=== PATIENT | female | born 1960 | race African-American/Black ===

== ENCOUNTER 2020-12-15 14:01 | Outpatient (REF) | payer OTHER, SELFPAY ==
--- NOTE | ~2020-12-15 | MM_ITS ---
EXAMINATION: MM SCREENING DIGITAL BREAST TOMOSYNTHESIS, BILATERAL CLINICAL INFORMATION: Screening. Asymptomatic. The lifetime risk of breast cancer based on the Tyrer-Cuzick Model is 9.8%. COMPARISON: Mammography: 09/20/2019 and studies dating back to 03/22/2016. TECHNIQUE: Digital breast tomosynthesis is performed in both the craniocaudal and mediolateral oblique views along with computer-aided detection (CAD). Synthesized 2D images are generated from the tomosynthesis. FINDINGS: There are scattered areas of fibroglandular density (ACR BI-RADS breast composition Category b). There is multiplicity and bilaterality of calcifications which have been increasing over time but which are similar in appearance without 1 more specific suspicious grouping being seen. There is increased size and prominence of circumscribed densities about the retroareolar region of the left breast, likely representing dilated ducts. Recommend targeted left breast ultrasound for further evaluation. MM/MM tomosynthesis screening BI IMPRESSION: Increase in circumscribed densities retroareolar region of the left breast for which ultrasound is recommended. ASSESSMENT: BI-RADS 0: Incomplete - Need Additional Imaging Evaluation RECOMMENDATION: Targeted ultrasound retroareolar region of the left breast. Radiology staff will contact patient to obtain this study.
== END 2020-12-15 14:02 | disposition home or self-care (01) ==
LOC: HO.MAMMO 14:01
PROVIDERS: Visit Provider Internal Medicine
DX: Z12.31 Encounter for screening mammogram for malignant neoplasm of breast (principal)
CPT/HCPCS: 77063; 77067

== ENCOUNTER 2020-12-18 13:20 | Outpatient (REF) | payer OTHER, SELFPAY ==
--- NOTE | ~2020-12-18 | US_ITS ---
EXAMINATION: US DIAGNOSTIC ULTRASOUND BREAST, LEFT CLINICAL INFORMATION: Recall from screening for retroareolar duct ectasia. COMPARISON: Mammography 12/15/2020, 09/20/2019, 09/17/2018, 03/22/2016. TECHNIQUE: Ultrasound left breast is targeted to the retroareolar and periareolar region. Grayscale imaging and color Doppler are performed without and with harmonics. FINDINGS: As noted on mammography, there is retroareolar duct ectasia perhaps slightly more prominent on current imaging but present on prior mammography 2019 and 2018. The retroareolar ducts range in size from 3 mm to 6 mm in diameter. The frye are uniform thin. Most all of the ducts are anechoic. There is no solid mass or peripheral or internal color flow. There are 2 ducts retroareolar 3:00 position each around 3 mm in diameter with some hyperechoic intraluminal echogenicity without color flow, likely inspissated secretions. No skin thickening or edema tracking in soft tissue planes. Results are discussed with the patient at time of visit. Patient notes no nipple discharge or palpable mass or other symptom. US/US breast LT limited IMPRESSION: Left retroareolar duct ectasia, 2 smaller ducts retroareolar 3:00 showing probable inspissated secretions in the lumen. No associated color flow. ASSESSMENT: BI-RADS 3: Probably Benign RECOMMENDATION: Diagnostic left mammography and targeted left breast ultrasound in 6 months. This patient's information was entered into a reminder system with a target due date for their next mammogram.
== END 2020-12-18 13:21 | disposition home or self-care (01) ==
LOC: HO.MAMMO 13:20
PROVIDERS: PCP Internal Medicine; Visit Provider Internal Medicine
DX: R92.2 Inconclusive mammogram (principal)
CPT/HCPCS: 76642

== ENCOUNTER 2021-03-31 11:45 | Outpatient (REF) | payer OTHER, SELFPAY ==
[2021-03-31 13:39] LABS: MANUAL DIFF FLAG NO
[2021-03-31 13:42] LABS: Basophils Percent Auto 0.1 % (0-2); Eosinophils Percent Auto 0.5 % (0-4); Hematocrit 43.8 % (37-47); Hemoglobin 13.4 g/dl (12.0-16.0); Imm Gran Abs Auto 0.03 X10*3/uL (0.00-0.03); Imm Gran Pct Auto 0.4 % (0.0-0.4); Lymphocytes Absolute Auto 3.2 X10*3/uL (1.2-4.9); Lymphocytes Percent Auto 39.2 % (20-40); Mean Corpuscular HGB Conc 30.6 g/dl (31.0-35.0); Mean Corpuscular Volume 81.7 fL (80-98); Mean Platelet Volume 10.1 fL (9.4-12.3); Monocytes Absolute Auto 0.6 X10*3/uL (0.1-1.2); Monocytes Percent Auto 7.3 % (2-11); Neutrophils Absolute Auto 4.3 X10*3/uL (2.0-8.3); Neutrophils Percent Auto 52.5 % (45-73); Platelet Count 290 X10*3/uL (160-400); Red Blood Count 5.36 X10*6/uL (4.20-5.50); Red Cell Distribution Width 13.4 % (11.0-16.0); White Blood Count 8.2 X10*3/uL (4.8-10.8)
[2021-03-31 14:22] LABS: Alanine Aminotransferase 24 U/L (0-31); Albumin Level 4.2 g/dL (3.5-5.0); Alkaline Phosphatase 88 U/L (39-117); Anion Gap 15 (12-20); Aspartate Amino Transferase 19 U/L (5-31); Bilirubin Direct 0.4 mg/dL (0.0-0.5); Bilirubin Total 0.9 mg/dL (0.0-1.0); Blood Urea Nitrogen 14 mg/dL (9-16); Calcium 9.6 mg/dL (8.4-10.2); Carbon Dioxide 25 mmol/L (22-29); Chloride 104 mmol/L (96-108); Cholesterol 161 mg/dL; Estimated Glomerular Filt Rate > 60; Glucose Fasting 148 mg/dL (60-99); HDL Cholesterol 54 mg/dL; LDL Cholesterol Calculated 86 mg/dl; Sodium 140 mmol/L (135-145); Total Protein 7.6 g/dL (6.5-8.0); Triglycerides 108 mg/dL
[2021-03-31 14:42] LABS: TSH reflex Free T4 1.12 uIU/mL (0.32-4.0)
[2021-04-01 13:52] LABS: LDL Cholesterol Direct 99 mg/dL (<100)
== END 2021-03-31 11:46 | disposition home or self-care (01) ==
LOC: HO.HMGCLDS 11:45
PROVIDERS: PCP Internal Medicine; Visit Provider Internal Medicine
DX: E66.01 Morbid (severe) obesity due to excess calories (principal); K21.9 Gastro-esophageal reflux disease without esophagitis; M76.62 Achilles tendinitis, left leg; I10 Essential (primary) hypertension
CPT/HCPCS: 36415; 80048; 80053; 80061; 80076; 82248; 83721; 84443; 85025

== ENCOUNTER 2021-04-26 11:35 | Emergency (ER) | payer OTHER, SELFPAY ==
--- NOTE | ~2021-04-26 | XR_ITS ---
EXAMINATION: XR CHEST CLINICAL INFORMATION: Dyspnea COMPARISON: 09/05/2018 TECHNIQUE: AP upright view of the chest was obtained. FINDINGS: No significant abnormality is noted involving the heart, lungs, mediastinum, bony thorax or soft tissues. XR/XR chest 1V IMPRESSION: Unremarkable examination.
[2021-04-26 12:03] VITALS: BP 158/77; PULSE 66; RESP 16; TEMP 37.2; O2SAT 99; BMI 42.9
--- NOTE | 2021-04-26 13:08 | ED.GENADULT ---
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) Mode of arrival: ambulatory Limitations: no limitations History of Present Illness MD complaint: headaches, dizziness, chest pain abdominal pain Onset (ago): week(s) (1) Location: head, chest and abdomen Severity: moderate Quality: aching Pain Consistency: constant Relieving factors: none Exacerbating factors: medication (started when she started to take her nifedipine) Associated symptoms: chest pain, headaches, loss of appetite, malaise and other (body aches) Treatments prior to arrival: none Related Data Previous Rx's Medication Instructions Recorded Blood pressure monitor #1 ea 09/30/20 acetaminophen 500 mg tablet 500 mg PO BID PRN 90 Days #180 tab 03/12/21 aspirin 81 mg chewable tablet 1 tab PO DAILY 90 Days #90 tab 03/12/21 naproxen 500 mg tablet 500 mg PO ONCE PRN 90 Days #90 tab 03/12/21 atenolol 100 mg tablet 100 mg PO DAILY 90 Days #90 tab 03/31/21 nifedipine 30 mg tablet,extended 30 mg PO DAILY 90 Days #90 tab 03/31/21 release 24 hr (Procardia XL) omeprazole 40 mg capsule,delayed 40 mg PO DAILY 90 Days #90 cap 03/31/21 release cefuroxime axetil 500 mg tablet 500 mg PO BID 7 Days #14 tab 04/26/21 ondansetron 4 mg disintegrating 4 mg PO Q8H PRN #20 tab 04/26/21 tablet Allergies Allergy/AdvReac Type Severity Reaction Status Date / Time lisinopril AdvReac Unknown cough Verified 03/31/21 11:25 Review of Systems Review of Systems: Constitutional : No Weight loss, No Fever, No Chills ENT/Mouth : No sore throat, No Rhinorrhea Eyes: No Eye Pain, No Swelling Cardiovascular : pos Chest Pain, no SOB, no Dyspnea on Exertion, No Orthopnea, No Edema, No Palpitations Respiratory : No Cough, No Sputum Gastrointestinal : pos Nausea, No Vomiting, No Diarrhea, pos abdominal Pain, No Hematochezia, No Melena Genitourinary : No Dysuria, No Urinary Frequency Musculoskeletal : No joint pain, pos Myalgias, No Joint Swelling Skin : No Skin Lesions, No rash Neuro : pos Weakness, No Numbness, pos Dizziness, No Headache Psych : No Anxiety/Panic, No Depression Heme/Lymph: No Bruising, No Lymphadenopathy Endocrine : No Polyuria, No Polydipsia All other systems reviewed and are negative [facility] Past Medical History Attestation statement: The following information was validated with the patient. Medical History Chronic GERD Uncontrolled hypertension Social History Social History Alcohol intake: current Alcohol intake frequency: holidays/special occasions only Patient Tobacco Use Status: Never used Tobacco Advance Directives: No Current occupational status: employed Physical Exam Vital Signs: Vital Signs: Last Vital Signs Temp 99.0 F 04/26/21 12:03 Pulse 66 04/26/21 12:03 Resp 16 04/26/21 12:03 BP 158/77 H 04/26/21 12:03 Pulse Ox 99 04/26/21 12:03 Body Mass Index 42.9 Appearance: Alert. Oriented X3. No acute distress. Eyes: Pupils equal, round and reactive to light. ENT: Pharynx normal. Neck: Normal inspection. Neck supple. CVS: Normal heart rate and rhythm. Pulses normal. Respiratory: No respiratory distress. Breath sounds normal. Abdomen: Soft and mild epigastric ttp no reboung or guarding Skin: Skin warm and dry. Normal skin color. Normal skin turgor. Extremities: No lower extremity edema. No calf ttp Neuro: Oriented X 3. No motor deficit. No sensory deficit. Course Course Course Narrative: + UTI but no vomiting, not toxic, no CVA ttp can be managed as outpatient BP stable, EKG and trop negative feels better stable for DC Medical Decision Making MDM Narrative Medical decision making narrative: 61 yo female with hx of obesity and HTN here with diffuse body pain, headaches, dizziness, weakness, chest pain x 1 week after starting nifedipine - at this time will need labs, EKG< troponin x 1, her VS are stable she doesn't have significant ttp of abdomen - will provide supportive medications and reassess Lab Data Result diagrams: 04/26/21 13:54 04/26/21 13:54 Labs: Lab Results 09/06/21 09/06/21 09/06/21 Range/Units 13:54 13:54 13:54 WBC 13.8 H (4.8-10.8) X10*3/uL RBC 5.27 (4.20-5.50) X10*6/uL Hgb 13.3 (12.0-16.0) g/dl Hct 43.1 (37-47) % MCV 81.8 (80-98) fL MCH 25.2 L (27.0-33.0) pg MCHC 30.9 L (31.0-35.0) g/dl RDW 13.1 (11.0-16.0) % Plt Count 323 (160-400) X10*3/uL MPV 8.9 L (9.4-12.3) fL Immature Gran % (Auto) 0.3 (0.0-0.4) % Neut % (Auto) 66.3 (45-73) % Lymph % (Auto) 27.7 (20-40) % Hart % (Auto) 5.4 (2-11) % Eos % (Auto) 0.2 (0-4) % Baso % (Auto) 0.1 (0-2) % Lymph # (Auto) 3.8 (1.2-4.9) X10*3/uL Hart # (Auto) 0.8 (0.1-1.2) X10*3/uL Eos # (Auto) 0.0 (0.0-0.4) X10*3/uL Baso # (Auto) 0.0 (0.0-0.2) X10*3/uL Abs Immat Gran (auto) 0.04 H (0.00-0.03) X10*3/uL Absolute Neuts (auto) 9.1 H (2.0-8.3) X10*3/uL Absolute Nucleated RBC 0.000 (0.0-0.012) X10*3/uL Nucleated RBC % (auto) 0.0 (0.0-0.2) /100WBC Sodium 140 (135-145) mmol/L Potassium 3.8 (3.3-5.1) mmol/L Chloride 100 (96-108) mmol/L Carbon Dioxide 31 H (22-29) mmol/L Anion Gap 13 (12-20) BUN 10 (9-16) mg/dL Creatinine 0.74 (0.5-1.4) mg/dL Estim Creat Clear Calc 98.5 Estimated GFR > 60 Random Glucose 106 (60-115) mg/dL Calcium 9.4 (8.4-10.2) mg/dL Magnesium (1.6-2.6) mg/dL Total Bilirubin 0.7 (0.0-1.0) mg/dL Direct Bilirubin 0.3 (0.0-0.5) mg/dL AST 26 (5-31) U/L ALT 34 H (0-31) U/L Alkaline Phosphatase 99 (39-117) U/L Troponin I High Sens (<3.5-17.0) ng/L Total Protein 7.6 (6.5-8.0) g/dL Albumin 4.1 (3.5-5.0) g/dL Lipase 12 (8-78) U/L Urine Color Urine Appearance Urine pH (5.0-8.0) Ur Specific [place] (1.005-1.025) Urine Protein (NEG-TRACE) MG/DL Urine Glucose (UA) (NEG) MG/DL Urine Ketones (NEG) MG/DL Urine Blood (NEG) Urine Nitrite (NEG) Ur Leukocyte Esterase (NEG) Urine RBC (0) /HPF Urine WBC (0-4) /HPF Ur Squamous Epith Cells /LPF Urine Bacteria /LPF COVID-19 (KELLY) Negative (Negative) COVID-19 Clin Com See Note 04/26/21 04/26/21 04/26/21 Range/Units 13:54 13:54 14:20 WBC (4.8-10.8) X10*3/uL RBC (4.20-5.50) X10*6/uL Hgb (12.0-16.0) g/dl Hct (37-47) % MCV (80-98) fL MCH (27.0-33.0) pg MCHC (31.0-35.0) g/dl RDW (11.0-16.0) % Plt Count (160-400) X10*3/uL MPV (9.4-12.3) fL Immature Gran % (Auto) (0.0-0.4) % Neut % (Auto) (45-73) % Lymph % (Auto) (20-40) % Hart % (Auto) (2-11) % Eos % (Auto) (0-4) % Baso % (Auto) (0-2) % Lymph # (Auto) (1.2-4.9) X10*3/uL Hart # (Auto) (0.1-1.2) X10*3/uL Eos # (Auto) (0.0-0.4) X10*3/uL Baso # (Auto) (0.0-0.2) X10*3/uL Abs Immat Gran (auto) (0.00-0.03) X10*3/uL Absolute Neuts (auto) (2.0-8.3) X10*3/uL Absolute Nucleated RBC (0.0-0.012) X10*3/uL Nucleated RBC % (auto) (0.0-0.2) /100WBC Sodium (135-145) mmol/L Potassium (3.3-5.1) mmol/L Chloride (96-108) mmol/L Carbon Dioxide (22-29) mmol/L Anion Gap (12-20) BUN (9-16) mg/dL Creatinine (0.5-1.4) mg/dL Estim Creat Clear Calc Estimated GFR Random Glucose (60-115) mg/dL Calcium (8.4-10.2) mg/dL Magnesium 2.0 (1.6-2.6) mg/dL Total Bilirubin (0.0-1.0) mg/dL Direct Bilirubin (0.0-0.5) mg/dL AST (5-31) U/L ALT (0-31) U/L Alkaline Phosphatase (39-117) U/L Troponin I High Sens < 3.5 (<3.5-17.0) ng/L Total Protein (6.5-8.0) g/dL Albumin (3.5-5.0) g/dL Lipase (8-78) U/L Urine Color YELLOW Urine Appearance CLEAR Urine pH 7.0 (5.0-8.0) Ur Specific [place] <= 1.005 (1.005-1.025) Urine Protein NEG (NEG-TRACE) MG/DL Urine Glucose (UA) NEG (NEG) MG/DL Urine Ketones NEG (NEG) MG/DL Urine Blood NEG (NEG) Urine Nitrite POS H (NEG) Ur Leukocyte Esterase 1+ H (NEG) Urine RBC 0-2 (0) /HPF Urine WBC 5-9 H (0-4) /HPF Ur Squamous Epith Cells 1+ /LPF Urine Bacteria 3+ /LPF COVID-19 (KELLY) (Negative) COVID-19 Clin Com ECG Data Attestation: I personally reviewed and interpreted this ECG as follows: Interpretation: Rate: 57 Rhythm: sinus bradycardia [place]: normal Normal P waves. Normal LIZ. Normal QRS complex. ST T wave : normal no YAZMIN qTC: normal prior studies: no acute ischemia The study has been interpreted contemporaneously by me. . Discharge Plan Discharge Clinical Impression: Malaise, Atypical chest pain UTI (urinary tract infection) Qualifiers: Urinary tract infection type: acute cystitis Hematuria presence: without hematuria Qualified Code(s): N30.00 - Acute cystitis without hematuria Patient Disposition: Home, Self-Care Instructions: Chest Pain (ED), Urinary Tract Infection in Women (ED), Fatigue (ED) Additional Instructions: return to ED for any worsening symptoms or concerns NEGATIVE FOR COVID Prescriptions: New cefuroxime axetil 500 mg tablet 500 mg PO BID 7 Days Qty: 14 RF: 0 ondansetron 4 mg tablet,disintegrating 4 mg PO Q8H PRN (Reason: nausea and vomiting) Qty: 20 RF: 0 No Action (DME) Blood pressure monitor See Rx Instructions .Route .MEDSUPPLY Qty: 1 RF: 0 acetaminophen 500 mg tablet 500 mg PO BID PRN (Reason: pain) 90 Days Qty: 180 RF: 0 aspirin 81 mg tablet,chewable 1 tab PO DAILY 90 Days Qty: 90 RF: 0 naproxen 500 mg tablet 500 mg PO ONCE PRN (Reason: pain) 90 Days Qty: 90 RF: 0 nifedipine [Procardia XL] 30 mg tablet extended release 24hr 30 mg PO DAILY 90 Days Qty: 90 RF: 0 atenolol 100 mg tablet 100 mg PO DAILY 90 Days Qty: 90 RF: 0 omeprazole 40 mg capsule,delayed release(DR/EC) 40 mg PO DAILY 90 Days Qty: 90 RF: 0 Referrals: Delvis Green MD [Primary Care Provider] - 2 days (IF NOT BETTER) Print Language: Emirati
--- NOTE | 2021-04-26 13:15 | ECG_ITS ---
Test Reason : DIZZINESS Blood Pressure : / mmHG Vent. Rate : 057 BPM Atrial Rate : 057 BPM P-R Int : 162 ms QRS Dur : 080 ms QT Int : 478 ms P-R-T Axes : 050 042 018 degrees QTc Int : 465 ms Sinus bradycardia Otherwise normal ECG No previous ECGs available Referred By: Suly Camarena Electronically Signed By:MAIA PERERA
[2021-04-26 13:59] LABS: MANUAL DIFF FLAG NO
[2021-04-26 14:01] LABS: Basophils Percent Auto 0.1 % (0-2); Eosinophils Percent Auto 0.2 % (0-4); Hematocrit 43.1 % (37-47); Hemoglobin 13.3 g/dl (12.0-16.0); Imm Gran Abs Auto 0.04 X10*3/uL (0.00-0.03); Imm Gran Pct Auto 0.3 % (0.0-0.4); Lymphocytes Absolute Auto 3.8 X10*3/uL (1.2-4.9); Lymphocytes Percent Auto 27.7 % (20-40); Mean Corpuscular HGB Conc 30.9 g/dl (31.0-35.0); Mean Corpuscular Hemoglobin 25.2 pg (27.0-33.0); Mean Corpuscular Volume 81.8 fL (80-98); Mean Platelet Volume 8.9 fL (9.4-12.3); Monocytes Absolute Auto 0.8 X10*3/uL (0.1-1.2); Monocytes Percent Auto 5.4 % (2-11); Neutrophils Absolute Auto 9.1 X10*3/uL (2.0-8.3); Neutrophils Percent Auto 66.3 % (45-73); Platelet Count 323 X10*3/uL (160-400); Red Blood Count 5.27 X10*6/uL (4.20-5.50); Red Cell Distribution Width 13.1 % (11.0-16.0); White Blood Count 13.8 X10*3/uL (4.8-10.8)
[2021-04-26 14:12] LABS: COVID-19 Test Negative (Negative); IDNOW Serial# 55D5AD1C
[2021-04-26] MEDS: Acetaminophen 325 MG TABLET 650 MG PO (14:12)
[2021-04-26 14:19] LABS: Alanine Aminotransferase 34 U/L (0-31); Albumin Level 4.1 g/dL (3.5-5.0); Alkaline Phosphatase 99 U/L (39-117); Anion Gap 13 (12-20); Aspartate Amino Transferase 26 U/L (5-31); Bilirubin Direct 0.3 mg/dL (0.0-0.5); Bilirubin Total 0.7 mg/dL (0.0-1.0); Blood Urea Nitrogen 10 mg/dL (9-16); Calcium 9.4 mg/dL (8.4-10.2); Carbon Dioxide 31 mmol/L (22-29); Chloride 100 mmol/L (96-108); Creatinine Clr Calc Pharmacy 98.5; Estimated Glomerular Filt Rate > 60; Glucose Random 106 mg/dL (60-115); Lipase 12 U/L (8-78); Potassium 3.8 mmol/L (3.3-5.1); Sodium 140 mmol/L (135-145); Total Protein 7.6 g/dL (6.5-8.0)
[2021-04-26 14:22] LABS: Troponin-I High Sensitivity < 3.5 ng/L (<3.5-17.0)
[2021-04-26 14:27] LABS: Glucose Urine UA NEG (NEG); Leukocyte Esterase Urine 1+ (NEG); Nitrite Urine POS (NEG); Specific Gravity - Urine <= 1.005 (1.005-1.025); UACC Culture Trigger YES; Urine Blood NEG (NEG); Urine Ketones NEG (NEG); Urine Protein NEG (NEG-TRACE)
[2021-04-26 14:28] LABS: Appearance Urine CLEAR; Color Urine YELLOW
[2021-04-26 14:37] LABS: Bacteria Urine 3+ /LPF; RBC Urine 0-2 /HPF (0); Squamous Epithelial Cell Urine 1+ /LPF
[2021-04-26] MEDS: cefTRIAXone sodium 1 GM in 0.9 % Sodium Chloride 50 ML IV (15:28)
== END 2021-04-26 15:55 | disposition home or self-care (01) ==
PROVIDERS: Emergency Provider Emergency Medicine; PCP Internal Medicine
DX: R07.89 Other chest pain (principal); R53.81 Other malaise; N30.00 Acute cystitis without hematuria; Z20.822 Contact with and (suspected) exposure to COVID-19; R51.9 Headache, unspecified; I10 Essential (primary) hypertension
CPT/HCPCS: 36415; 71045; 80048; 80076; 81001; 83690; 83735; 84484; 85025; 87086; 87088; 87186; 87635; 93005; 96365; 96375; 99284; J0696

== ENCOUNTER 2021-06-21 14:28 | Outpatient (REF) | payer OTHER, SELFPAY ==
--- NOTE | ~2021-06-21 | MM_ITS ---
EXAMINATION: MM DIAGNOSTIC DIGITAL BREAST TOMOSYNTHESIS, LEFT US DIAGNOSTIC ULTRASOUND BREAST, LEFT CLINICAL INFORMATION: Six-month follow-up benign appearing duct ectasia with some inspissated secretions on targeted ultrasound. The lifetime risk of breast cancer based on the Tyrer-Cuzick Model is 10%. COMPARISON: Mammography: 12/15/2020, 09/20/2019; targeted left breast ultrasound 12/18/2020 TECHNIQUE: Digital breast tomosynthesis is performed in both the craniocaudal and mediolateral oblique views along with computer-aided detection (CAD). Synthesized 2D images are generated from the tomosynthesis. Additional left CC view is provided. Ultrasound left breast is targeted to the retroareolar and outer periareolar region. Grayscale imaging and color Doppler are performed without and with harmonics. FINDINGS: There are scattered areas of fibroglandular density (ACR BI-RADS breast composition Category b). Retroareolar duct ectasia are stable from prior study. There is no interval mass or architectural abnormality. There are scattered punctate calcifications again seen. No skin thickening or retraction. Ultrasound demonstrates mild retroareolar duct ectasia similar in number and size to prior exam. There are 2 ducts retroareolar 3:00 position which have some stable hyperechoic internal echogenicity without peripheral or internal color flow and are believed to represent inspissated secretions. Duct frye appear smooth. Results are discussed with the patient at time of visit. MM/MM tomosynthesis diagnostic LT IMPRESSION: Left retroareolar duct ectasia similar to prior exam. Inspissated secretions stable. No interval mass or intraluminal color flow. ASSESSMENT: BI-RADS 2: Benign RECOMMENDATION: Annual bilateral mammography. This patient's information was entered into a reminder system with a target due date for their next mammogram.
== END 2021-06-21 14:29 | disposition home or self-care (01) ==
LOC: HO.MAMMO 14:28
PROVIDERS: Visit Provider Internal Medicine
DX: R92.2 Inconclusive mammogram (principal)
CPT/HCPCS: 76642; 77061; 77065

== ENCOUNTER → 2021-06-28 14:54 | Outpatient (BNVA) | payer OTHER, SELFPAY | PROVIDERS: PCP Internal Medicine; Referring Provider Internal Medicine; Visit Provider Internal Medicine Cardiovascular Disease | DX: G47.30 Sleep apnea, unspecified (principal); I10 Essential (primary) hypertension | CPT/HCPCS: 99202 ==

== ENCOUNTER → 2021-08-19 12:51 | Outpatient (REF) | payer OTHER, SELFPAY ==
--- NOTE | 2021-08-19 12:54 | CA_ITS ---
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 - Diastolic function is normal for age. - Normal right ventricular cavity size and systolic function. Findings Procedure Information Contrast agent, definity, is being given per protocol without apparent complications. Left Ventricle Normal left ventricular size and systolic function. There is mildly increased left ventricular wall thickness. There is no evidence of regional wall motion abnormalities. Diastolic function is normal for age. Right Ventricle Normal right ventricular cavity size and systolic function. Atria Both atria are normal in size. Aortic Valve There is a normal trileaflet aortic valve. There is mild calcification of the aortic valve. There is no aortic valve stenosis. There is no aortic valve regurgitation. Mitral Valve Normal mitral valve structure and function. There is no mitral valve regurgitation. There is no mitral valve stenosis. Pulmonic Valve Normal pulmonic valve structure and function. There is trace pulmonic valve regurgitation. Tricuspid Valve Normal tricuspid valve structure and function. There is trace tricuspid valve regurgitation. Normal right atrial pressure. There is no evidence of pulmonary hypertension. Great Vessels All visible segments of the aorta are normal in size. The visualized portions of the pulmonary artery and branches are normal. Venous The inferior vena cava is normal in size and collapses greater than 50% with inspiration. Pericardium/Pleural Normal pericardial structure. There is no evidence of pericardial effusion. Prior Study Comparison No significant change compared to prior study dated: 07/10/2019. Measurements 2D Linear Measurements IVSd: 1.10 0.6-0.9/0.6-1.0 cm LVIDd: 3.38 3.9-5.3/4.2-5.9 cm LVIDd Index: 1.60 2.4-3.2/2.2-3.1 cm/m2 LVIDs: 2.08 2.0-3.6 cm LVPWd: 1.07 0.7-1.1 cm Ao Root: 3.30 2.1-3.5 cm LA Diam: 3.80 2.7-3.8/3.0-4.0 cm LAIDs Index: 1.80 1.5-2.3 cm/m2 LV Mass: 137.63 67-162/88-224 g LV Mass Index: 65.23 43-95/49-115 g/m2 LVOT Diam: 2.00 3.0+(-)1.3 cm 2D Systolic Function EF 4C: 59.70 >55% EF 2C: 61.80 >55% EF BiP: 60.30 >55% Mitral Valve MV Pk E: 0.60 MV PK A: 0.76 MV Decel Time: 253.00 E/A: 0.80 E'Lateral: 8.59 E'Medial: 6.53 E/E' Med: 9.20 E/E' Lat: 7.00 PHT: 74.00 MVA PHT: 2.97 Decel [place]: 2.37 Aortic Valve AoV Pk Francis: 1.55 AoV Mn Francis: 1.22 AoV VTI: 0.34 AoV Pk Grad: 10.00 Aov Mn Grad: 6.00 JERAMIE Cont.VTI: 2.27 LVOT LVOT Pk Francis: 1.20 LVOT Mn Francis: 0.88 LVOT VTI: 0.24 LVOT Pk Grad: 6.00 LVOT Mn Grad: 3.00 LVOT Diam: 2.00 LVOT Area: 3.14 Diastolic Function MV Pk E: 0.60 MV Pk A: 0.76 E/A: 0.80 E'Medial: 6.53 E/E' Med: 9.20 E' Laterial: 8.59 E/E' Lat: 7.00 Right Ventricle TAPSE (mm): 2.21 TVS' Francis: 12.90 Tricuspid Valve TR Pk Francis: 1.95 TR Pk Grad: 15.00 RA Press: 3.00 RVSP: 18.00 Great Vessels Aorta Ao Root-2D: 3.30 2.0-3.7 cm Ao Asc: 3.20 2.1-3.4 cm Ao Arch: 2.80 Updated in Other Vendor System with Status of Final Krish Villa MD electronically signed on 08/20/2021 4:02:15 PM with status of Final
== END ==
LOC: HO.CARD 12:51
PROVIDERS: Visit Provider Internal Medicine Cardiovascular Disease
DX: I10 Essential (primary) hypertension (principal)
CPT/HCPCS: 93306; Q9957

== ENCOUNTER → 2021-10-04 14:43 | Outpatient (BNVA) | payer OTHER, SELFPAY | PROVIDERS: PCP Internal Medicine; Referring Provider Internal Medicine; Visit Provider Internal Medicine Cardiovascular Disease | DX: R06.00 Dyspnea, unspecified (principal); I10 Essential (primary) hypertension | CPT/HCPCS: 93005; 99212 ==

== ENCOUNTER → 2021-10-05 20:56 | Outpatient (REF) | payer OTHER, SELFPAY | LOC: HO.SL 20:56 | PROVIDERS: PCP Internal Medicine; Visit Provider Internal Medicine Cardiovascular Disease | DX: G47.33 Obstructive sleep apnea (adult) (pediatric) (principal) | CPT/HCPCS: 95810 ==

== ENCOUNTER 2021-10-29 10:08 | Outpatient (REF) | payer OTHER, SELFPAY ==
[2021-10-29 10:42] LABS: MANUAL DIFF FLAG NO
[2021-10-29 11:08] LABS: Basophils Percent Auto 0.2 % (0-2); Eosinophils Absolute Auto 0.1 X10*3/uL (0.0-0.4); Eosinophils Percent Auto 0.7 % (0-4); Hematocrit 44.7 % (37.0-47.0); Hemoglobin 13.3 g/dl (12.0-16.0); Imm Gran Abs Auto 0.04 X10*3/uL (0.00-0.03); Imm Gran Pct Auto 0.4 % (0.0-0.4); Lymphocytes Absolute Auto 3.1 X10*3/uL (1.2-4.9); Lymphocytes Percent Auto 34.5 % (20-40); Mean Corpuscular HGB Conc 29.8 g/dl (31.0-35.0); Mean Corpuscular Hemoglobin 24.8 pg (27.0-33.0); Mean Corpuscular Volume 83.2 fL (80.0-98.0); Mean Platelet Volume 9.2 fL (9.4-12.3); Monocytes Absolute Auto 0.8 X10*3/uL (0.1-1.2); Monocytes Percent Auto 8.9 % (2-11); Neutrophils Percent Auto 55.3 % (45-73); Platelet Count 311 X10*3/uL (160-400); Red Blood Count 5.37 X10*6/uL (4.20-5.50); Red Cell Distribution Width 12.9 % (11.0-16.0); White Blood Count 9.1 X10*3/uL (4.8-10.8)
[2021-10-29 11:40] LABS: Anion Gap 13 (12-20); Blood Urea Nitrogen 19 mg/dL (9-16); Calcium 9.8 mg/dL (8.4-10.2); Carbon Dioxide 30 mmol/L (22-29); Chloride 100 mmol/L (96-108); Cholesterol 148 mg/dL; Estimated Glomerular Filt Rate > 60; Glucose Random 140 mg/dL (60-115); HDL Cholesterol 45 mg/dL; LDL Cholesterol Calculated 80 mg/dl; Sodium 139 mmol/L (135-145); Triglycerides 118 mg/dL
== END 2021-10-29 10:09 | disposition home or self-care (01) ==
LOC: HO.LAB 10:08
PROVIDERS: PCP Internal Medicine; Visit Provider Internal Medicine Cardiovascular Disease
DX: I10 Essential (primary) hypertension (principal); D72.829 Elevated white blood cell count, unspecified; E78.5 Hyperlipidemia, unspecified
CPT/HCPCS: 36415; 80048; 80061; 85025

== ENCOUNTER → 2021-11-03 14:12 | Outpatient (BNVA) | payer OTHER, SELFPAY | PROVIDERS: PCP Internal Medicine; Referring Provider Internal Medicine; Visit Provider Nurse Practitioner Family | DX: I10 Essential (primary) hypertension (principal); R06.00 Dyspnea, unspecified; E66.9 Obesity, unspecified; Z68.41 Body mass index [BMI] 40.0-44.9, adult | CPT/HCPCS: 99212 ==

== ENCOUNTER 2021-12-23 15:06 | Outpatient (REF) | payer OTHER, SELFPAY ==
--- NOTE | ~2021-12-23 | MM_ITS ---
EXAMINATION: MM SCREENING DIGITAL BREAST TOMOSYNTHESIS, BILATERAL CLINICAL INFORMATION: Screening. Asymptomatic. The lifetime risk of breast cancer based on the Tyrer-Cuzick Model is 9.2%. COMPARISON: Mammography: 06/21/2021 and studies dating back to 04/19/2012. TECHNIQUE: Digital breast tomosynthesis is performed in both the craniocaudal and mediolateral oblique views along with computer-aided detection (CAD). Synthesized 2D images are generated from the tomosynthesis. FINDINGS: The breasts are heterogeneously dense, which may obscure small masses (ACR BI-RADS breast composition Category c). There is multiplicity and bilaterality of numerous scattered and grouped calcifications which appear essentially stable dating back to study of 09/17/2018. There is also a stable region of architectural distortion seen about the mid lateral aspect of the right breast on craniocaudal view. No definite new suspicious grouping of microcalcifications or new abnormal dominant mass appreciated. MM/MM tomosynthesis screening BI IMPRESSION: There are no significant changes from prior study. ASSESSMENT: BI-RADS 2: Benign RECOMMENDATION: Routine annual mammography screening. This patient's information was entered into a reminder system with a target due date for their next mammogram.
== END 2021-12-23 15:07 | disposition home or self-care (01) ==
LOC: HO.MAMMO 15:06
PROVIDERS: PCP Internal Medicine; Visit Provider Internal Medicine
DX: Z12.31 Encounter for screening mammogram for malignant neoplasm of breast (principal)
CPT/HCPCS: 77063; 77067

== ENCOUNTER → 2022-01-30 20:04 | Outpatient (REF) | payer OTHER, SELFPAY | LOC: HO.SL 20:04 | PROVIDERS: PCP Internal Medicine; Visit Provider Internal Medicine Cardiovascular Disease | DX: G47.33 Obstructive sleep apnea (adult) (pediatric) (principal); Z79.899 Other long term (current) drug therapy | CPT/HCPCS: 95811 ==

== ENCOUNTER 2022-02-11 07:28 | Outpatient (REF) | payer OTHER, SELFPAY ==
[2022-02-11 08:36] LABS: Alanine Aminotransferase 37 U/L (0-31); Albumin Level 4.1 g/dL (3.5-5.0); Alkaline Phosphatase 97 U/L (39-117); Anion Gap 13 (12-20); Aspartate Amino Transferase 24 U/L (5-31); Bilirubin Total 0.9 mg/dL (0.0-1.0); Blood Urea Nitrogen 17 mg/dL (9-16); Calcium 9.6 mg/dL (8.4-10.2); Carbon Dioxide 29 mmol/L (22-29); Chloride 100 mmol/L (96-108); Estimated Glomerular Filt Rate > 60; Glucose Fasting 145 mg/dL (60-99); Potassium 3.5 mmol/L (3.3-5.1); Sodium 138 mmol/L (135-145); Total Protein 7.4 g/dL (6.5-8.0)
[2022-02-11 08:57] LABS: HBc Num1 0.09 S/CO (0.00-0.79); HBsAGNum1 0.23 S/CO (0.00-0.99); Hepatitis B Core Antibody Nonreactive (Nonreactive); Hepatitis B Surface Antigen Negative (Negative); ~Hepatitis B Surface Antibody REACTIVE (Nonreactive)
[2022-02-14 18:06] LABS: Rubella IgG Antibody 3.06 Index
[2022-02-15 13:31] LABS: TS Negative Control Passed; TS Panel A 0; TS Panel B 0; TS Positive Control Passed; TSpotTB Negative (Negative)
[2022-02-15 22:37] LABS: Varicella IgG Antibody <135.00 index
[2022-02-16 13:22] LABS: Mumps Virus IgG Antibody >300.00 AU/mL
== END 2022-02-11 07:29 | disposition home or self-care (01) ==
LOC: HO.LAB 07:28
PROVIDERS: PCP Internal Medicine; Visit Provider Internal Medicine
DX: Z01.84 Encounter for antibody response examination (principal); Z11.1 Encounter for screening for respiratory tuberculosis; I10 Essential (primary) hypertension
CPT/HCPCS: 36415; 80053; 86481; 86704; 86706; 86735; 86762; 86765; 86787; 87340

== ENCOUNTER → 2022-04-07 14:53 | Outpatient (BNVA) | payer OTHER, SELFPAY | PROVIDERS: PCP Internal Medicine; Visit Provider Internal Medicine | DX: E66.9 Obesity, unspecified (principal); G47.33 Obstructive sleep apnea (adult) (pediatric); Z68.39 Body mass index [BMI] 39.0-39.9, adult | CPT/HCPCS: 99202 ==

== ENCOUNTER → 2022-05-31 13:53 | Outpatient (BNVA) | payer OTHER, SELFPAY | PROVIDERS: PCP Internal Medicine; Visit Provider Internal Medicine | DX: G47.33 Obstructive sleep apnea (adult) (pediatric) (principal); E66.9 Obesity, unspecified; R05.9 Cough, unspecified | CPT/HCPCS: 99212 ==

== ENCOUNTER → 2022-06-29 13:48 | Outpatient (BNVA) | payer OTHER, SELFPAY | PROVIDERS: PCP Internal Medicine; Referring Provider Internal Medicine; Visit Provider Nurse Practitioner Family | DX: I10 Essential (primary) hypertension (principal); E66.9 Obesity, unspecified; Z68.39 Body mass index [BMI] 39.0-39.9, adult | CPT/HCPCS: 99212 ==

== ENCOUNTER → 2022-07-13 08:56 | Outpatient (BNVA) | payer OTHER, SELFPAY | PROVIDERS: PCP Internal Medicine; Visit Provider Dietitian, Registered | DX: E66.9 Obesity, unspecified (principal); Z68.39 Body mass index [BMI] 39.0-39.9, adult; Z71.3 Dietary counseling and surveillance | CPT/HCPCS: 97802 ==

== ENCOUNTER → 2022-07-19 13:50 | Outpatient (BNVA) | payer OTHER, SELFPAY | PROVIDERS: PCP Internal Medicine; Visit Provider Internal Medicine | DX: G47.33 Obstructive sleep apnea (adult) (pediatric) (principal); E66.9 Obesity, unspecified; R05.9 Cough, unspecified; Z68.38 Body mass index [BMI] 38.0-38.9, adult | CPT/HCPCS: 99212 ==

== ENCOUNTER 2022-08-10 09:00 | Outpatient (REF) | payer OTHER, SELFPAY ==
--- NOTE | ~2022-08-10 | US_ITS ---
EXAMINATION: US RETROPERITONEAL LIMITED (RENAL ONLY) US RENAL DOPPLER CLINICAL INFORMATION: Hypertension. COMPARISON: None TECHNIQUE: Routine caal-scale imaging of kidneys was performed. In addition, retroperitoneal Doppler of kidneys and aorta was obtained. FINDINGS: RIGHT KIDNEY: 10.0 x 4.7 x 5.3 cm (SAG x AP x TRV). The kidney is normal in size, contour, and echogenicity. Renal cortical thickness is normal. There is no echogenic calculi or hydronephrosis. There is an anechoic simple cyst measuring 1.4 x 1.1 x 1.3 cm. LEFT KIDNEY: 10.2 x 4.9 x 5.3 cm (SAG x AP x TRV). The kidney is normal in size, contour, and echogenicity. There is a dromedary hump in the upper/mid pole. Renal cortical thickness is normal. No calculi or focal parenchymal lesions. No hydronephrosis. On renal Doppler imaging: Right kidney: Peak systolic velocity proximal renal artery measures 124 cm/s, mid segment measures 106 cm/s, distal segment measures 90.1 cm/s. Average resistive index is 0.73 within normal limits. Renal aortic ratio measures 1.58. The renal vein is patent. Left kidney: Peak systolic velocity proximal renal artery measures 102 cm/s, mid segment measures 111 cm/s and distal segment measures 85.3. Renal aortic ratio measures 1.41. Average resistive index measures 0.72. The left renal vein is widely patent. The mid aorta velocity measures 78.6 cm/s. US/US renal doppler IMPRESSION: 1. Simple cyst right kidney. Otherwise, both kidneys are unremarkable. 2. There is no evidence of renal artery stenosis.
--- NOTE | ~2022-08-10 | US_ITS ---
EXAMINATION: US RETROPERITONEAL LIMITED (RENAL ONLY) US RENAL DOPPLER CLINICAL INFORMATION: Hypertension. COMPARISON: None TECHNIQUE: Routine caal-scale imaging of kidneys was performed. In addition, retroperitoneal Doppler of kidneys and aorta was obtained. FINDINGS: RIGHT KIDNEY: 10.0 x 4.7 x 5.3 cm (SAG x AP x TRV). The kidney is normal in size, contour, and echogenicity. Renal cortical thickness is normal. There is no echogenic calculi or hydronephrosis. There is an anechoic simple cyst measuring 1.4 x 1.1 x 1.3 cm. LEFT KIDNEY: 10.2 x 4.9 x 5.3 cm (SAG x AP x TRV). The kidney is normal in size, contour, and echogenicity. There is a dromedary hump in the upper/mid pole. Renal cortical thickness is normal. No calculi or focal parenchymal lesions. No hydronephrosis. On renal Doppler imaging: Right kidney: Peak systolic velocity proximal renal artery measures 124 cm/s, mid segment measures 106 cm/s, distal segment measures 90.1 cm/s. Average resistive index is 0.73 within normal limits. Renal aortic ratio measures 1.58. The renal vein is patent. Left kidney: Peak systolic velocity proximal renal artery measures 102 cm/s, mid segment measures 111 cm/s and distal segment measures 85.3. Renal aortic ratio measures 1.41. Average resistive index measures 0.72. The left renal vein is widely patent. The mid aorta velocity measures 78.6 cm/s. US/US renal BI IMPRESSION: 1. Simple cyst right kidney. Otherwise, both kidneys are unremarkable. 2. There is no evidence of renal artery stenosis.
== END 2022-08-10 09:01 | disposition home or self-care (01) ==
LOC: HO.US 09:00
PROVIDERS: PCP Internal Medicine; Visit Provider Nurse Practitioner Family
DX: I10 Essential (primary) hypertension (principal)
CPT/HCPCS: 76775; 93975

== ENCOUNTER → 2022-12-08 12:58 | Outpatient (BNVA) | payer OTHER, SELFPAY | PROVIDERS: PCP Internal Medicine; Referring Provider Internal Medicine; Visit Provider Surgery | DX: D17.21 Benign lipomatous neoplasm of skin and subcutaneous tissue of right arm (principal) | CPT/HCPCS: 99202 ==

== ENCOUNTER 2022-12-17 10:13 | Emergency (ER) | payer OTHER, SELFPAY ==
--- NOTE | ~2022-12-17 | XR_ITS ---
EXAMINATION: XR CHEST CLINICAL INFORMATION: Chest pain. COMPARISON: Chest x-ray 04/26/2021. TECHNIQUE: Frontal view of the chest was obtained. FINDINGS: The cardiomediastinal silhouette is within normal limits. Normal pulmonary vascularity. Low lung volumes. No consolidation. No effusion or pneumothorax. XR/XR chest 1V IMPRESSION: No acute findings.
--- NOTE | 2022-12-17 10:14 | ECG_ITS ---
Test Reason : CP Blood Pressure : / mmHG Vent. Rate : 069 BPM Atrial Rate : 069 BPM P-R Int : 156 ms QRS Dur : 074 ms QT Int : 424 ms P-R-T Axes : 040 035 020 degrees QTc Int : 454 ms Poor data quality, interpretation may be adversely affected Normal sinus rhythm Normal ECG When compared with ECG of 26-APR-2021 15:08, No significant change was found Referred By: Generic ED Physician Electronically Signed By:Krish Villa
[2022-12-17 10:24] VITALS: BP 164/85; PULSE 65; RESP 12; O2SAT 98; BMI 37.8
[2022-12-17 10:52] VITALS: PULSE 62
[2022-12-17 10:54] LABS: MANUAL DIFF FLAG NO
[2022-12-17 10:56] LABS: Basophils Percent Auto 0.3 % (0-2); Eosinophils Percent Auto 0.3 % (0-4); Hematocrit 42.7 % (37.0-47.0); Hemoglobin 13.4 g/dl (12.0-16.0); Imm Gran Abs Auto 0.03 X10*3/uL (0.00-0.03); Imm Gran Pct Auto 0.3 % (0.0-0.4); Lymphocytes Absolute Auto 3.4 X10*3/uL (1.2-4.9); Mean Corpuscular HGB Conc 31.4 g/dl (31.0-35.0); Mean Corpuscular Hemoglobin 25.1 pg (27.0-33.0); Mean Platelet Volume 8.8 fL (9.4-12.3); Monocytes Absolute Auto 0.8 X10*3/uL (0.1-1.2); Monocytes Percent Auto 7.9 % (2-11); Neutrophils Absolute Auto 5.7 x10*3/uL (2.0-8.3); Neutrophils Percent Auto 57.2 % (45-73); Platelet Count 286 X10*3/uL (160-400); Red Blood Count 5.34 X10*6/uL (4.20-5.50); Red Cell Distribution Width 12.8 % (11.0-16.0)
[2022-12-17 11:14] LABS: Anion Gap 16 (12-20); Blood Urea Nitrogen 15 mg/dL (9-16); Calcium 9.5 mg/dL (8.4-10.2); Carbon Dioxide 27 mmol/L (22-29); Chloride 101 mmol/L (96-108); Creatinine Clr Calc Pharmacy 79.8; Estimated Glomerular Filt Rate > 60; Glucose Random 126 mg/dL (60-115); Potassium 3.5 mmol/L (3.3-5.1); Sodium 140 mmol/L (135-145)
--- NOTE | 2022-12-17 11:24 | ED.CHESTPAIN ---
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 Left-sided chest pain started about a week ago described as intermittent localized sharp pain to the left side of the chest, no radiation, no shortness of breath with chest pain, food seemed to aggravate the pain and make it worse, no clear alleviating factors, no lower extremity swelling or tenderness, no SOB. Patient was evaluated at a walk-in clinic urgent care and was sent to the ER for further evaluation. Related Data Previous Rx's Medication Instructions Recorded Blood pressure monitor #1 ea 10/04/21 furosemide 20 mg tablet (Lasix) 20 mg PO DAILY 90 days #90 tabs 11/10/21 naproxen 500 mg tablet 500 mg PO ONCE PRN pain 90 days 02/18/22 #90 tabs amlodipine 5 mg tablet 5 mg PO DAILY 90 days #90 tabs 03/17/22 aspirin 81 mg chewable tablet 81 mg PO DAILY 90 days #90 tabs 07/04/22 spironolactone 25 1 tab PO DAILY 90 days #90 tabs 07/05/22 mg-hydrochlorothiazide 25 mg tablet atenolol 100 mg tablet 100 mg PO DAILY 90 days #90 tabs 09/25/22 omeprazole 40 mg capsule,delayed 40 mg PO DAILY 90 days #90 caps 09/25/22 release acetaminophen 500 mg tablet 500 mg PO BID PRN pain 90 days 10/22/22 #180 tabs Allergies Allergy/AdvReac Type Severity Reaction Status Date / Time lisinopril AdvReac Intermediate cough Verified 12/08/22 13:01 nifedipine AdvReac Intermediate Chest Verified 12/08/22 13:01 pain/headache Review of Systems Review of Systems: All other systems are reviewed and are negative Constitutional: Reports as per HPI and Reports no additional constitutional complaints Eyes: Reports as per HPI and Reports no additional eye complaints Reports system reviewed and no additional complaints, except as documented Cardiovascular: Reports as per HPI and Reports no additional cardiovascular complaints Respiratory: Reports as per HPI and Reports no additional respiratory complaints Gastrointestinal: Reports as per HPI and Reports no additional gastrointestinal complaints Genitourinary: Reports no additional female genitourinary complaints Musculoskeletal: Reports no additional musculoskeletal complaints Skin/Breast: Reports system reviewed and no additional complaints, except as docu Psychiatric: Reports no additional psychiatric complaints Endocrine: Reports no additional endocrine complaints Hematologic/Lymphatic: Reports no additional hematologic/lymphatic complaints Allergic/Immunologic: Reports no additional allergic/immunologic complaints Reports system reviewed and no additional complaints, except as documented and Reports Abnormal speech present [facility] Past Medical History Medical History Blurred vision Bunion of great toe of left foot Chronic GERD Cough Elevated random blood glucose level Foot pain, bilateral Hypertension, essential Leukocytosis Lipoma of right upper extremity Morbid obesity with BMI of 40.0-44.9, adult Obesity Obesity (BMI 35.0-39.9 without comorbidity) LIBRA (obstructive sleep apnea) Strain of left Achilles tendon, initial encounter Uncontrolled hypertension Surgical History History of partial hysterectomy Family History Family History Mother Hypotension Father HTN (hypertension) Father HTN (hypertension) Diabetes mellitus Mother Alzheimer's disease Dementia Daughter No problems noted. Social History Social History Housing: Apartment Alcohol intake: current Alcohol intake frequency: holidays/special occasions only Alcohol type: beer, wine and hard liquor Patient Tobacco Use Status: Never used Tobacco e-Cigarette/Vaping Use: Never Used Second Hand Smoke Exposure: No Advance Directives: No Advance Directives Information Provided: Yes Patient : No service: No Current occupational status: employed Current occupational exposures/hazards: No Cognitive needs: No Hearing needs: No Vision needs: No Physical Exam Vital Signs: Vital Signs: Last Vital Signs Temp 98.2 F 12/17/22 12:33 Pulse 61 12/17/22 12:33 Resp 16 12/17/22 12:33 BP 122/60 12/17/22 12:33 Pulse Ox 98 12/17/22 12:33 O2 Del Method Room Air 12/17/22 12:33 BMI result Body Mass Index 37.8 Vital signs have been reviewed as appeared to be correct. Blood pressure normal. Heart rate normal. Respiration rate normal. Temperature normal. Oxygen saturation normal. Appearance: Alert. Oriented X3. No acute distress. Head: Normal external exam. Normocephalic. Atraumatic. No Bull signs noted. No raccoon eyes noted Eyes: PERRLA. EOMI. Conjunctiva and sclera normal. Eyelids normal. ENT: TM's Normal. Pharynx normal. Uvula midline. Moist mucous membranes. No trismus noted. No drooling noted. No muffled voice noted. Neck: Normal inspection. Neck supple. FROM. No adenopathy. Thyroid Normal. No meningeal signs. No neck mass noted. CVS: Normal heart rate and rhythm. Heart sound normal. No murmurs noted. Pulses normal throughout. Respiratory: No respiratory distress. Painless inspiration. Breath sounds normal. No wheezes/rales/rhonchi noted. Chest nontender. No accessory muscle usage noted or decreased air movement noted. Abdomen: Soft and nontender. Bowel sounds normal in all 4 quadrants. No distention noted. No organomegaly noted. No visible injury noted. Back: No CVA tenderness. Full range of motion noted. Skin: Skin warm and dry. Normal skin color. Normal skin turgor. No rashes/lesions/lacerations noted. Extremities: No lower extremity edema. Extremities exhibit normal range of motion. Extremities nontender. Neuro: Oriented X 3. Cranial nerve exam: II-XII are grossly intact No motor deficit. No sensory deficit. Reflexes normal. Medical Decision Making Differential Diagnosis Differential Diagnoses: The differential diagnosis associated with the presentation includes (ACS, PE, pneumothorax, pneumonia, myofascial chest pain.) Lab Data MDM Lab Attestation statement: I reviewed the patient's lab results. 12/17/22 10:49 12/17/22 10:49 Labs: Lab Results 12/17/22 12/17/22 12/17/22 Range/Units 10:49 10:49 10:49 WBC 10.0 (4.8-10.8) X10*3/uL RBC 5.34 (4.20-5.50) X10*6/uL Hgb 13.4 (12.0-16.0) g/dl Hct 42.7 (37.0-47.0) % MCV 80.0 (80.0-98.0) fL MCH 25.1 L (27.0-33.0) pg MCHC 31.4 (31.0-35.0) g/dl RDW 12.8 (11.0-16.0) % Plt Count 286 (160-400) X10*3/uL MPV 8.8 L (9.4-12.3) fL Immature Gran % (Auto) 0.3 (0.0-0.4) % Neut % (Auto) 57.2 (45-73) % Lymph % (Auto) 34.0 (20-40) % [place] % (Auto) 7.9 (2-11) % Eos % (Auto) 0.3 (0-4) % Baso % (Auto) 0.3 (0-2) % Lymph # (Auto) 3.4 (1.2-4.9) X10*3/uL [place] # (Auto) 0.8 (0.1-1.2) X10*3/uL Eos # (Auto) 0.0 (0.0-0.4) X10*3/uL Baso # (Auto) 0.0 (0.0-0.2) X10*3/uL Abs Immat Gran (auto) 0.03 (0.00-0.03) X10*3/uL Absolute Neuts (auto) 5.7 (2.0-8.3) x10*3/uL Absolute Nucleated RBC 0.000 (0.0-0.012) X10*3/uL Nucleated RBC % (auto) 0.0 (0.0-0.2) /100WBC D-Dimer High Sensitivty NG/ML Sodium 140 (135-145) mmol/L Potassium 3.5 (3.3-5.1) mmol/L Chloride 101 (96-108) mmol/L Carbon Dioxide 27 (22-29) mmol/L Anion Gap 16 (12-20) BUN 15 (9-16) mg/dL Creatinine 0.84 (0.5-1.4) mg/dL Estim Creat Clear Calc 79.8 Estimated GFR > 60 Random Glucose 126 H (60-115) mg/dL Calcium 9.5 (8.4-10.2) mg/dL Troponin I High Sens < 2.7 (<3.5-17.0) ng/L 12/17/22 Range/Units 11:44 WBC (4.8-10.8) X10*3/uL RBC (4.20-5.50) X10*6/uL Hgb (12.0-16.0) g/dl Hct (37.0-47.0) % MCV (80.0-98.0) fL MCH (27.0-33.0) pg MCHC (31.0-35.0) g/dl RDW (11.0-16.0) % Plt Count (160-400) X10*3/uL MPV (9.4-12.3) fL Immature Gran % (Auto) (0.0-0.4) % Neut % (Auto) (45-73) % Lymph % (Auto) (20-40) % [place] % (Auto) (2-11) % Eos % (Auto) (0-4) % Baso % (Auto) (0-2) % Lymph # (Auto) (1.2-4.9) X10*3/uL [place] # (Auto) (0.1-1.2) X10*3/uL Eos # (Auto) (0.0-0.4) X10*3/uL Baso # (Auto) (0.0-0.2) X10*3/uL Abs Immat Gran (auto) (0.00-0.03) X10*3/uL Absolute Neuts (auto) (2.0-8.3) x10*3/uL Absolute Nucleated RBC (0.0-0.012) X10*3/uL Nucleated RBC % (auto) (0.0-0.2) /100WBC D-Dimer High Sensitivty < 150 NG/ML Sodium (135-145) mmol/L Potassium (3.3-5.1) mmol/L Chloride (96-108) mmol/L Carbon Dioxide (22-29) mmol/L Anion Gap (12-20) BUN (9-16) mg/dL Creatinine (0.5-1.4) mg/dL Estim Creat Clear Calc Estimated GFR Random Glucose (60-115) mg/dL Calcium (8.4-10.2) mg/dL Troponin I High Sens (<3.5-17.0) ng/L Independent Interpretation I performed an independent interpretation of an: EKG (Normal sinus rhythm at 70 beats per minutes, normal axis deviation, normal intervals, no ST-T changes.) and Plain X-Ray (No acute intrathoracic pathology.) Radiology Impression Discussion of test interpretation with radiology: I have reviewed the radiologist's reading. Discharge Plan Discharge Clinical Impression: Atypical chest pain Patient Disposition: Home, Self-Care Instructions: Chest Pain (ED) Prescriptions: No Action (DME) Blood pressure monitor See Rx Instructions .Route .MEDSUPPLY Qty: 1 0RF Rx Instructions: As directed furosemide [Lasix] 20 mg tablet 20 mg PO DAILY 90 Days Qty: 90 1RF naproxen 500 mg tablet 500 mg PO ONCE PRN (Reason: pain) 90 Days Qty: 90 0RF amlodipine 5 mg tablet 5 mg PO DAILY 90 Days Qty: 90 1RF aspirin 81 mg tablet,chewable 81 mg PO DAILY 90 Days Qty: 90 1RF spironolacton-hydrochlorothiaz 25-25 mg tablet 1 tab PO DAILY 90 Days Qty: 90 1RF omeprazole 40 mg capsule,delayed release(DR/EC) 40 mg PO DAILY 90 Days Qty: 90 0RF atenolol 100 mg tablet 100 mg PO DAILY 90 Days Qty: 90 0RF acetaminophen 500 mg tablet 500 mg PO BID PRN (Reason: pain) 90 Days Qty: 180 0RF Referrals: Daria Shafer MD [Primary Care Provider] -
[2022-12-17 11:26] LABS: Troponin-I High Sensitivity < 2.7 ng/L (<3.5-17.0)
[2022-12-17 12:08] LABS: D Dimer High Sensitivity < 150 NG/ML
[2022-12-17 12:33] VITALS: BP 122/60; PULSE 61; RESP 16; TEMP 36.8; O2SAT 98
[2022-12-17 14:00] VITALS: BP 128/62; PULSE 62; RESP 16; TEMP 36.8; O2SAT 97
== END 2022-12-17 14:21 | disposition home or self-care (01) ==
PROVIDERS: Emergency Provider Emergency Medicine; PCP Internal Medicine
DX: R07.89 Other chest pain (principal); I10 Essential (primary) hypertension; Z79.82 Long term (current) use of aspirin; Z79.899 Other long term (current) drug therapy
CPT/HCPCS: 36415; 71045; 80048; 84484; 85025; 85379; 93005; 99283; 99284

== ENCOUNTER 2023-01-02 08:06 | Outpatient (REF) | payer OTHER, SELFPAY ==
--- NOTE | ~2023-01-02 | MM_ITS ---
EXAMINATION: MM SCREENING DIGITAL BREAST TOMOSYNTHESIS, BILATERAL CLINICAL INFORMATION: Screening. Asymptomatic. The lifetime risk of breast cancer based on the Tyrer-Cuzick Model is 7%. COMPARISON: Mammography: 12/23/2021, 06/21/2021, 12/15/2020; ultrasound left breast 06/21/2021, 12/18/2020 TECHNIQUE: Digital breast tomosynthesis is performed in both the craniocaudal and mediolateral oblique views along with computer-aided detection (CAD). Synthesized 2D images are generated from the tomosynthesis. Additional right CC view is provided. FINDINGS: There are scattered areas of fibroglandular density (ACR BI-RADS breast composition Category b). Breast tissue composition borders on heterogeneously dense. There is no architectural abnormality, significant mass, or developing density. Left retroareolar duct ectasia is decreased since 2020. Borderline right retroareolar duct ectasia is stable. Again, there are numerous bilateral scattered calcifications, greater in number on right. No significant changes. The axilla and skin contours are unremarkable. MM/MM tomosynthesis screening BI IMPRESSION: No mammographic evidence of malignancy. ASSESSMENT: BI-RADS 2: Benign RECOMMENDATION: Routine annual mammography screening. This patient's information was entered into a reminder system with a target due date for their next mammogram.
== END 2023-01-02 08:07 | disposition home or self-care (01) ==
LOC: HO.MAMMO 08:06
PROVIDERS: PCP Internal Medicine; Visit Provider Internal Medicine
DX: Z12.31 Encounter for screening mammogram for malignant neoplasm of breast (principal)
CPT/HCPCS: 77063; 77067

== ENCOUNTER → 2023-01-11 12:33 | Outpatient (BNVA) | payer OTHER, SELFPAY | PROVIDERS: PCP Internal Medicine; Referring Provider Internal Medicine; Visit Provider Internal Medicine Cardiovascular Disease | DX: R06.00 Dyspnea, unspecified (principal) | CPT/HCPCS: 99212 ==

== ENCOUNTER → 2023-02-02 08:03 | Outpatient (REF) | payer OTHER, SELFPAY ==
--- NOTE | 2023-02-02 08:06 | CA_ITS ---
Acquisition Time: 2023-02-02 08:14:01 Total Exercise Time: 00:06:05 Test Indications: Dyspnea Medications: AMLODIPINE ASA ATENOLOL FUROSEMIDE NAPROXEN OMEPRAZOLE SPIRONALACTONE/HCTZ Protocol: GÓMEZ Max HR: 144 BPM 91% of Pred: 158 BPM Max BP: 252/068 mmHG Max Work Load: 7.0 METS Exercise stress test exercise 6 min 5 sec of Gómez protocol achieving 91% MPHR, with fatigue and need to stop, with mild sob, no chest discomfort, without arrythmia, with hypertensive response to exercise with max BP 200/66, without EKG changes meeting criteria for ischemia. Test reviewed with Dr Gutierrez. Referred By: Krish Villa Overread By: JOSE E MAURICE
== END ==
LOC: HO.CARD 08:03
PROVIDERS: PCP Internal Medicine; Visit Provider Internal Medicine Cardiovascular Disease
DX: R06.00 Dyspnea, unspecified (principal)
CPT/HCPCS: 93017

== ENCOUNTER → 2023-02-08 12:38 | Outpatient (BNVA) | payer OTHER, SELFPAY | PROVIDERS: PCP Internal Medicine; Visit Provider Internal Medicine | DX: R10.12 Left upper quadrant pain (principal); K21.9 Gastro-esophageal reflux disease without esophagitis; E66.01 Morbid (severe) obesity due to excess calories; Z68.38 Body mass index [BMI] 38.0-38.9, adult | CPT/HCPCS: 99202 ==

== ENCOUNTER 2023-03-16 15:38 | Outpatient (AMB) | payer OTHER, SELFPAY ==
[2023-03-16 15:48] VITALS: BP 130/80; BMI 37.8
--- NOTE | 2023-03-16 15:48 | A.OFFPC_ITS ---
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 Accompanied by: Self / Same As Patient Allergies lisinopril Adverse Reaction (Intermediate, Verified 03/16/23 16:10) cough nifedipine Adverse Reaction (Intermediate, Verified 03/16/23 16:10) Chest pain/headache Medication List - Last Reconciled 03/16/23 by Daria Gambino MD acetaminophen 500 mg PO BID PRN 90 days amlodipine 5 mg PO DAILY 90 days aspirin 81 mg PO DAILY 90 days atenolol 100 mg PO DAILY 90 days [Blood pressure monitor As directed] furosemide (Lasix) 20 mg PO DAILY 90 days naproxen 500 mg PO ONCE PRN 90 days omeprazole 40 mg PO DAILY 90 days peg 3350-electrolytes 236-22.74-6.74 -5.86 gram (Golytely) 240 mL PO Q10M spironolacton-hydrochlorothiaz 25-25 mg 1 tab PO DAILY 90 days Tobacco use date assessed: 01/02/23 Dental Screening Dental Screen Date: 03/16/23 Did you have a dental visit in the last 12 months?: Yes Did you have a dental problem in the last 6 months where you did not have access to dental care?: No Was dental information given to patient?: Patient has dentist HPI HPI Comments History of Present Illness Details This is a 63-year-old female that comes for her physical exam. Mammogram was done December 2022. No need for Pap smear due to hysterectomy. Colonoscopy was done 10 years ago and will be repeated next month. No chest pain or shortness of breath. Has obstructive sleep apnea but declines the use of CPAP. She is obese with a BMI of 37.8 declines weight loss surgery. [facility] Medical History Blurred vision Bunion of great toe of left foot Chronic GERD Cough Elevated random blood glucose level Foot pain, bilateral Hypertension, essential Leukocytosis Lipoma of right upper extremity Morbid obesity with BMI of 40.0-44.9, adult Obesity Obesity (BMI 35.0-39.9 without comorbidity) LIBRA (obstructive sleep apnea) Strain of left Achilles tendon, initial encounter Uncontrolled hypertension Surgical History History of partial hysterectomy Hx of colonoscopy Family History (Updated 03/16/23 @ 16:13 by Daria Gambino MD) Mother Hypotension Father Multiple myeloma Father No problems noted. Mother Alzheimer's disease Dementia Daughter No problems noted. Social History Housing: Apartment Alcohol intake: current Alcohol intake frequency: holidays/special occasions only Alcohol type: beer, wine and hard liquor Patient Tobacco Use Status: Never used Tobacco e-Cigarette/Vaping Use: Never Used Second Hand Smoke Exposure: No service: No Current occupational status: employed Current occupational exposures/hazards: No Cognitive needs: No Hearing needs: No Vision needs: No Questionnaire Thrive Questionnaire Date Thrive assessed: 11/02/22 EMILIE-7 AMB Questionnaire EMILIE-7 Date EMILIE - 7 assessed: 11/02/22 Source: Developed by Drs. Luis F Briggs, Brooke Elias, Aydin Brady and colleagues, with an educational guilherme from [employer]. Review of Systems Const All systems reviewed & are unremarkable except as noted in HPI and below Eyes Reports no additional complaints, Denies change in vision and Denies other visual disturbances Card Denies chest pain at rest, Denies chest pain with activity, Denies edema, Denies irregular heart rhythm, Denies claudication, Denies dyspnea, Denies dyspnea on exertion, Denies orthopnea, Denies paroxysmal nocturnal dyspnea and Denies slow heart rate Resp Denies cough, Denies dyspnea and Denies dyspnea on exertion GI Denies abdominal pain, Denies change in bowel habits, Denies excessive flatus, Denies nausea and Denies vomiting Denies urinary incontinence, Denies urinary hesitancy and Denies urinary urgency Musc Denies abnormal gait, Denies atrophy, Denies deformity and Denies limited range of motion Skin/Breast Denies bleeding lesions, Denies changing lesions and Denies rash Neuro Denies abnormal gait and Denies lack of coordination Physical exam (Primary Care) Vital Signs: Last Vital Signs BP 130/80 03/16/23 15:48 BMI result Body Mass Index 37.8 Tobacco/Smoking Status: Tobacco use Status Tobacco use date assessed 01/02/23 03/16/23 15:52 Patient Tobacco Use Status Never used Tobacco 03/16/23 15:52 e-Cigarette/Vaping Use Never Used 03/16/23 15:52 Thrive Assessment: Date of Thrive Assessment Date Thrive assessed 11/02/22 03/16/23 15:52 Const Orientation/consciousness: patient oriented x3 HENMT Head: Yes normal to inspection, Yes normocephalic and Yes atraumatic Ears: external ears normal Mouth: lip normal Eyes General: appearance normal, both eyes and all related structures Eyelids: Yes eyelids normal Conjunctivae: conjunctivae normal Neck Neck: Yes normal visual inspection and Yes supple Resp Effort & Inspection: normal respiratory effort Auscultation: clear to auscultation bilaterally Cardio Jugular venous distension: no JVD Rate: regular rate Rhythm: regular rhythm Heart sounds: S1 normal heart sound present and S2 normal heart sound present GI Inspection: Yes normal to inspection Palpation (GI): Soft to palpation and nontender Auscultation: normal bowel sounds Skin General skin exam: no rashes or lesions noted Neuro General: patient oriented x3 and no focal motor deficits Extrem General: Yes full ROM Psych Appearance: grossly normal Assessment and Plan Assessment & Plan (1) Physical exam: Code(s): Z00.00 - Encounter for general adult medical examination without abnormal findings Plan: Repeat in a year Orders: Orders Comprehensive [place]. Panel Fast Today Z00.00 - Encounter for general adult medical examination without abnormal findings Lipid Panel Today E78.5 - Hyperlipidemia, unspecified, Z00.00 - Encounter for general adult medical examination without abnormal findings Thyroid Stimulating Hormone Today E66.9 - Obesity, unspecified Coding Level of Care Code Est Pt Prev Care 40-64y(56847) Diagnoses Physical exam Z00.00 Time Spent (min) 32
== END 2023-03-16 16:21 | disposition home or self-care (01) ==
PROVIDERS: PCP Internal Medicine; Visit Provider Internal Medicine
DX: Z00.00 Encounter for general adult medical examination without abnormal findings (principal)
CPT/HCPCS: 99396

== ENCOUNTER 2023-05-10 12:43 | Outpatient (AMB) | payer OTHER, SELFPAY ==
[2023-05-10 13:00] VITALS: BMI 37.4
--- NOTE | 2023-05-10 13:00 | A.OFFVIS_ITS ---
Intake VS Expanded 05/10/23 13:00 Height 5 ft 4 in Weight 217 lb 13.067 oz BMI 37.4 Intake Visit Reasons: obesity voicemail Allergies lisinopril Adverse Reaction (Intermediate, Verified 03/16/23 16:10) cough nifedipine Adverse Reaction (Intermediate, Verified 03/16/23 16:10) Chest pain/headache HPI Nutrition Presentation Details Pt presents for MNT for obesity. Pt reports working on diet modifications: reducing starches , reducing on fats by baking vs deep frying Pt reports not liking vegetables but including them in smoothies daily as midmorning snack Most Recent Diabetes Results: Creatinine 0.84 mg/dL (0.5-1.4) 12/17/22 Blood Urea Nitrogen 15 mg/dL (9-16) 12/17/22 Sodium 140 mmol/L (135-145) 12/17/22 Potassium 3.5 mmol/L (3.3-5.1) 12/17/22 Chloride 101 mmol/L (96-108) 12/17/22 Carbon Dioxide 27 mmol/L (22-29) 12/17/22 Calcium 9.5 mg/dL (8.4-10.2) 12/17/22 [facility] Medical History Blurred vision Bunion of great toe of left foot Chronic GERD Cough Elevated random blood glucose level Foot pain, bilateral Hypertension, essential Leukocytosis Lipoma of right upper extremity Morbid obesity with BMI of 40.0-44.9, adult Obesity Obesity (BMI 35.0-39.9 without comorbidity) LIBRA (obstructive sleep apnea) Strain of left Achilles tendon, initial encounter Uncontrolled hypertension Surgical History History of partial hysterectomy Hx of colonoscopy Family History (Updated 03/16/23 @ 16:13 by Daria Gambino MD) Mother Hypotension Father Multiple myeloma Father No problems noted. Mother Alzheimer's disease Dementia Daughter No problems noted. Social History Housing: Apartment Alcohol intake: current Alcohol intake frequency: holidays/special occasions only Alcohol type: beer, wine and hard liquor Patient Tobacco Use Status: Never used Tobacco e-Cigarette/Vaping Use: Never Used Second Hand Smoke Exposure: No service: No Current occupational status: employed Current occupational exposures/hazards: No Cognitive needs: No Hearing needs: No Vision needs: No Assessment & Plan Assessment & Plan (1) Obesity (BMI 35.0-39.9 without comorbidity): Code(s): E66.9 - Obesity, unspecified Plan: Educate Pt on 1182-6522 yady meal plan ? Used wt : 104 kg ( 98.6 kg on 05/10/23) Est kcal as per MSJ: 2176-250/500 = 1676- 1926 (40% carb, 30% fat/prot) Est fluid needs:2600 ml/d (25 ml/kg bw) Rec fiber: increase to 8-10 g per day and gradually increase to 25 g/d or as tolerated Rec Na: < 2000 mg /d Educate patient on: (R= Reviewed, V = verbalizes understanding N/R= Needs review N/A= not applicable) * Food sources of carbohydrates and serving adequate serving sizes : R V * Difference between complex carbohydrates and simple carbohydrates, role of fiber: R * Differences between fats (MUFA/PUFA/saturated fats, trans fats) and food sources of various fats: R , basic low fat concepts * Food sources of sodium and salt and healthy modifications for heart health and kidney health: R * How to interpret food labels: R * Healthy Plate method concept: R * Physical activity: benefits and precaution: V Patient Instructions: Continue working on reducing sugar intake (pastries/cookies/crackers) Include at least 2 serving of vegetables per day - veg shake ok Engage in physical activity 30 min 3-4 x/wk keep hydrated , have low sugar liquids with meals/snacks Coding Level of Care Code Nutr Indiv Subseq (88653) Diagnoses Obesity (BMI 35.0-39.9 without comorbidity) E66.9 Time Spent (min) 30
== END 2023-05-10 13:09 | disposition home or self-care (01) ==
PROVIDERS: PCP Internal Medicine; Visit Provider Dietitian, Registered
DX: E66.9 Obesity, unspecified (principal)

== ENCOUNTER → 2023-05-10 12:43 | Outpatient (BNVA) | payer OTHER, SELFPAY | PROVIDERS: PCP Internal Medicine; Visit Provider Dietitian, Registered | DX: E66.9 Obesity, unspecified (principal); Z68.37 Body mass index [BMI] 37.0-37.9, adult | CPT/HCPCS: 97803 ==

== ENCOUNTER 2023-07-19 09:22 | Outpatient (AMB) | payer OTHER, SELFPAY ==
[2023-07-19 09:23] VITALS: BP 110/64; BMI 37.6
--- NOTE | 2023-07-19 09:23 | MHC.OFFVIS ---
Intake Vital Signs 07/19/23 09:23 Height 5 ft 4 in Weight 219 lb 5.759 oz BMI 37.6 BP 110/64 Blood Pressure Location Lt brachial Position Sitting Intake Visit Reasons: HTN/RODRIGUEZ Intake Note: patients feel good Sprinkler Repair Technician Required: Yes Sprinkler Repair Technician Name: Taniageetha Accompanied by: Self / Same As Patient Allergies lisinopril Adverse Reaction (Intermediate, Verified 07/19/23 09:27) cough nifedipine Adverse Reaction (Intermediate, Verified 07/19/23 09:27) Chest pain/headache Medication List - Last Reconciled 07/19/23 by Krish Villa MD acetaminophen 500 mg PO BID PRN 90 days amlodipine 5 mg PO DAILY 90 days aspirin 81 mg PO DAILY 90 days atenolol 100 mg PO DAILY 90 days [Blood pressure monitor As directed] furosemide (Lasix) 20 mg PO DAILY 90 days naproxen 500 mg PO ONCE PRN 90 days omeprazole 40 mg PO DAILY 90 days peg 3350-electrolytes 236-22.74-6.74 -5.86 gram (Golytely) 240 mL PO Q10M spironolacton-hydrochlorothiaz 25-25 mg 1 tab PO DAILY 90 days HPI HPI Comments History of Present Illness Details Pleasant 63-year-old lady here for management of hypertension. She had hypertension diagnosed 35 years ago. She has been on spironolactone, hydrochlorothiazide and atenolol. Her blood pressure recently has been elevated. She has gained weight and snores at night but does not have known diagnosis of sleep apnea. Today she returns for follow-up. He is complaining of some dyspnea on exertion. Her blood pressure is reasonably controlled right now. She is taking medications regularly. Clinically does not look volume overloaded. Has been taking medications regularly. 07/19/2023: She returns for follow-up. She has been doing well. No chest discomfort shortness of breath. Blood pressure control is good. She had a stress test previously done for dyspnea and during exercise stress test she had hypertensive response to exercise. She is saying that she is feeling better. Her only complaint is that when she takes Lasix she has to go urinate multiple times which disrupts her work. She has tried to take it at night and could not sleep. She is asking whether Lasix can be stopped. [facility] Medical History Blurred vision Bunion of great toe of left foot Chronic GERD Cough Elevated random blood glucose level Foot pain, bilateral Hypertension, essential Leukocytosis Lipoma of right upper extremity Morbid obesity with BMI of 40.0-44.9, adult Obesity Obesity (BMI 35.0-39.9 without comorbidity) LIBRA (obstructive sleep apnea) Strain of left Achilles tendon, initial encounter Uncontrolled hypertension Surgical History Hx of colonoscopy History of partial hysterectomy Family History Mother Hypotension Father Multiple myeloma Father No problems noted. Mother Alzheimer's disease Dementia Daughter No problems noted. Social History Housing: Apartment Alcohol intake: current Alcohol intake frequency: holidays/special occasions only Alcohol type: beer, wine and hard liquor Patient Tobacco Use Status: Never used Tobacco e-Cigarette/Vaping Use: Never Used Second Hand Smoke Exposure: No service: No Current occupational status: employed Current occupational exposures/hazards: No Cognitive needs: No Hearing needs: No Vision needs: No Review of Systems Const Denies chills, Denies fatigue, Denies fever(s), Denies frequent falls, Denies weakness, Denies weight gain and Denies weight loss ENT Denies dizziness Card Denies chest pain, Denies leg edema, Denies lightheadedness, Denies palpitations, Denies dyspnea, Denies dyspnea on exertion, Denies orthopnea and Denies other (loss of consciousness) Resp Denies cough, Denies dyspnea and Denies dyspnea on exertion GI Denies hematochezia and Denies change in stool character Musc Denies abnormal gait, Denies muscle weakness, Denies numbness, Denies radiating pain into limb and Denies tingling Neuro Denies abnormal gait, Denies dizziness, Denies frequent falls, Denies numbness, Denies tingling and Denies weakness Endo Denies fatigue and Denies palpitations Physical Exam Vital Signs: Last Vital Signs BP 110/64 07/19/23 09:23 BMI result Body Mass Index 37.6 GENERAL APPEARANCE: in no acute distress, pleasant. Obese. NECK: no carotid bruit, no jugular venous distention. SKIN: no suspicious lesions, warm and dry. HEART: no murmurs, regular rate and rhythm. LUNGS: clear to auscultation bilaterally. ABDOMEN: soft, nontender. EXTREMITIES: No edema. PERIPHERAL PULSES: equal. NEUROLOGIC: No gross deficits, AAO X 3 Assessment & Plan Assessment & Plan (1) Hypertension, essential: Code(s): I10 - Essential (primary) hypertension Plan Pleasant 63-year-old female who is here for follow-up. She has background of hypertension. She previously was complaining of dyspnea and underwent stress test. During stress test she had hypertensive response to exercise. She is doing better with blood pressure control at this point. She has no chest discomfort shortness of breath on follow-up. Clinically not in heart failure. She is asking whether she can stop Lasix. I have advised her to hold the Lasix for now. Will see her back in few months. Thank you for allowing me to participate in the care of your patient. Please feel free to contact me if you have any questions. Coding Level of Care Code Est Pt Level 3 (55035) Diagnoses Hypertension, essential I10
== END 2023-07-19 09:53 | disposition home or self-care (01) ==
PROVIDERS: PCP Internal Medicine; Visit Provider Internal Medicine Cardiovascular Disease
DX: I10 Essential (primary) hypertension (principal)
CPT/HCPCS: 99213

== ENCOUNTER → 2023-07-19 09:22 | Outpatient (BNVA) | payer OTHER, SELFPAY | PROVIDERS: PCP Internal Medicine; Visit Provider Internal Medicine Cardiovascular Disease | DX: I10 Essential (primary) hypertension (principal) | CPT/HCPCS: 99212 ==

== ENCOUNTER 2023-07-26 16:41 | Outpatient (AMB) | payer OTHER, SELFPAY ==
[2023-07-26 16:44] VITALS: BP 136/88; BMI 37.4
--- NOTE | 2023-07-26 16:44 | A.OFFPC_ITS ---
Vital Signs 07/26/23 16:44 Height 5 ft 4 in Weight 218 lb BMI 37.4 BP 136/88 Blood Pressure Location Lt brachial Position Sitting Intake Visit Reasons: bp Intake Note: Patient here for a follow up BP Pack Worker Supervisor Required: No Accompanied by: Self / Same As Patient Allergies lisinopril Adverse Reaction (Intermediate, Verified 07/26/23 16:55) cough nifedipine Adverse Reaction (Intermediate, Verified 07/26/23 16:55) Chest pain/headache Medication List - Last Reconciled 07/26/23 by Daria Gambino MD acetaminophen 500 mg PO BID PRN 90 days amlodipine 5 mg PO DAILY 90 days aspirin 81 mg PO DAILY 90 days atenolol 100 mg PO DAILY 90 days [Blood pressure monitor As directed] omeprazole 40 mg PO DAILY 90 days peg 3350-electrolytes 236-22.74-6.74 -5.86 gram (Golytely) 240 mL PO Q10M spironolacton-hydrochlorothiaz 25-25 mg 1 tab PO DAILY 90 days Tobacco use date assessed: 01/02/23 Dental Screening Dental Screen Date: 07/26/23 Did you have a dental visit in the last 12 months?: Yes Did you have a dental problem in the last 6 months where you did not have access to dental care?: No Was dental information given to patient?: Patient has dentist HPI HPI Comments History of Present Illness Details This is a 63-year-old female with chronic GERD, hypertension and obstructive sleep apnea that complains of urge urinary incontinence requiring diapers. GERD has been stable with medications. Blood pressure well control. Patient is compliant with CPAP machine for her obstructive sleep apnea and feels rested. For her urge urinary incontinence she was advised to time bathroom visits and Kegel exercises. No chest pain or shortness of breath. Had some impaired glucose tolerance and fasting blood glucose will be repeated. [facility] Medical History (Updated 07/26/23 @ 17:02 by Daria Gambino MD) Lipoma of right upper extremity Cough LIBRA (obstructive sleep apnea) Obesity (BMI 35.0-39.9 without comorbidity) Elevated random blood glucose level Morbid obesity with BMI of 40.0-44.9, adult Blurred vision Leukocytosis Bunion of great toe of left foot Foot pain, bilateral Obesity Strain of left Achilles tendon, initial encounter Hypertension, essential Uncontrolled hypertension Chronic GERD Surgical History Hx of colonoscopy History of partial hysterectomy Family History Mother Hypotension Father Multiple myeloma Father No problems noted. Mother Alzheimer's disease Dementia Daughter No problems noted. Social History Housing: Apartment Alcohol intake: current Alcohol intake frequency: holidays/special occasions only Alcohol type: beer, wine and hard liquor Patient Tobacco Use Status: Never used Tobacco e-Cigarette/Vaping Use: Never Used Second Hand Smoke Exposure: No service: No Current occupational status: employed Current occupational exposures/hazards: No Cognitive needs: No Hearing needs: No Vision needs: No Questionnaire Thrive Questionnaire Date Thrive assessed: 11/02/22 EMILIE-7 AMB Questionnaire EMILIE-7 Date EMILIE - 7 assessed: 11/02/22 Source: Developed by Drs. Luis F Briggs, Brooke Elias, Aydin Brady and colleagues, with an educational guilherme from [email or web address]. Review of Systems Const All systems reviewed & are unremarkable except as noted in HPI and below Eyes Reports no additional complaints, Denies change in vision and Denies other visual disturbances Card Denies chest pain at rest, Denies chest pain with activity, Denies edema, Denies irregular heart rhythm, Denies claudication, Denies dyspnea, Denies dyspnea on exertion, Denies orthopnea, Denies paroxysmal nocturnal dyspnea and Denies slow heart rate Resp Denies cough, Denies dyspnea and Denies dyspnea on exertion GI Denies abdominal pain, Denies change in bowel habits, Denies excessive flatus, Denies nausea and Denies vomiting Denies urinary incontinence, Denies urinary hesitancy and Denies urinary urgency Musc Denies abnormal gait, Denies atrophy, Denies deformity and Denies limited range of motion Skin/Breast Denies bleeding lesions, Denies changing lesions and Denies rash Neuro Denies abnormal gait and Denies lack of coordination Physical exam (Primary Care) Vital Signs: Last Vital Signs BP 136/88 07/26/23 16:44 BMI result Body Mass Index 37.4 Tobacco/Smoking Status: Tobacco use Status Tobacco use date assessed 01/02/23 07/26/23 16:48 Patient Tobacco Use Status Never used Tobacco 07/26/23 16:48 e-Cigarette/Vaping Use Never Used 07/26/23 16:48 Thrive Assessment: Date of Thrive Assessment Date Thrive assessed 11/02/22 07/26/23 16:48 Eyes General: appearance normal, both eyes and all related structures Eyelids: Yes eyelids normal Conjunctivae: conjunctivae normal Neck Neck: Yes normal visual inspection and Yes supple Resp Effort & Inspection: normal respiratory effort Auscultation: clear to auscultation bilaterally Cardio Jugular venous distension: no JVD Rate: regular rate Rhythm: regular rhythm Heart sounds: S1 normal heart sound present and S2 normal heart sound present Extrem General: Yes full ROM Office Procedures Flu Questionnaire Does the patient have a severe egg allergy?: No Has the patient ever had any past reaction to a flu shot?: Yes Immunizations flu vacc [id number] 6mos up(PF) 60 mcg(15 mcgx4)/0.5 mL IM syringe Performing Provider: Daria Gambino MD [facility] Documented (not given) by: ISIS Rosales on 07/26/23 16:49 Reason Not Given: Patient Refused Assessment and Plan Assessment & Plan (1) Chronic GERD: Code(s): K21.9 - Gastro-esophageal reflux disease without esophagitis Plan: Continue PPIs as needed. (2) Hypertension, essential: Code(s): I10 - Essential (primary) hypertension Plan: Continue amlodipine, atenolol and spironolactone-hydrochlorothiazide. Blood pressure goal is equal or less than 130/80. (3) Urge urinary incontinence: Code(s): N39.41 - Urge incontinence Plan: Do time bathroom visits. Use diapers as needed. Do Kegel exercises. (4) LIBRA (obstructive sleep apnea): Comment: Moderately severe obstructive sleep apnea. Responded well to CPAP titration study. [place] : Discussed about the importance of CPAP treatment. She has very poor understanding about the use of her CPAP device. Appointment is set for her to bring the CPAP device and have our CPAP veterinary technician instructor explained to her technique of using the CPAP .properly . Code(s): G47.33 - Obstructive sleep apnea (adult) (pediatric) Plan: Continue CPAP machine Orders: Orders Lipid Panel Today I10 - Essential (primary) hypertension Influenza [id number] Immunization Today Z23 - Encounter for immunization Comprehensive [place]. Panel Fast Today I10 - Essential (primary) hypertension Medications: New [adult diapers] As directed 240 ea 11RF N39.41 - Urge incontinence Refilled acetaminophen 500 mg PO BID PRN 180 tabs 0RF pain 90 days M76.62 - Achilles tendinitis, left leg Coding Level of Care Code Est Pt Level 4 (79473) Diagnoses Chronic GERD K21.9 Hypertension, essential I10 Urge urinary incontinence N39.41 LIBRA (obstructive sleep apnea) G47.33 Time Spent (min) 23
== END 2023-07-26 17:02 | disposition home or self-care (01) ==
PROVIDERS: PCP Internal Medicine; Visit Provider Internal Medicine
DX: K21.9 Gastro-esophageal reflux disease without esophagitis (principal); I10 Essential (primary) hypertension; N39.41 Urge incontinence; G47.33 Obstructive sleep apnea (adult) (pediatric); Z90.711 Acquired absence of uterus with remaining cervical stump
CPT/HCPCS: 99214

== ENCOUNTER 2023-08-02 12:37 | Outpatient (AMB) | payer OTHER, SELFPAY ==
[2023-08-02 12:40] VITALS: BMI 37.5
--- NOTE | 2023-08-02 12:40 | MHC.AMNUTRGE ---
Intake VS Expanded 08/02/23 12:40 Height 5 ft 4 in Weight 218 lb 11.177 oz BMI 37.5 Intake Visit Reasons: obesity-LVM Allergies lisinopril Adverse Reaction (Intermediate, Verified 07/26/23 16:55) cough nifedipine Adverse Reaction (Intermediate, Verified 07/26/23 16:55) Chest pain/headache HPI Nutrition Presentation Details Pt presents for MNT f/u for obesity Pt reports having increased appetite for sweets fluid: water 16 oz/d, juices 2-3 glasses per day Reports having 1-2 meals/day and increased appetite for sweets in the evening, working on reducing snacking throughout the day physical activity: daily life activities ETOH/SMoking: denies Most Recent Diabetes Results: No Data to Display [facility] Medical History Lipoma of right upper extremity Cough LIBRA (obstructive sleep apnea) Obesity (BMI 35.0-39.9 without comorbidity) Elevated random blood glucose level Morbid obesity with BMI of 40.0-44.9, adult Blurred vision Leukocytosis Bunion of great toe of left foot Foot pain, bilateral Obesity Strain of left Achilles tendon, initial encounter Hypertension, essential Uncontrolled hypertension Chronic GERD Surgical History Hx of colonoscopy History of partial hysterectomy Family History Mother Hypotension Father Multiple myeloma Father No problems noted. Mother Alzheimer's disease Dementia Daughter No problems noted. Social History Housing: Apartment Alcohol intake: current Alcohol intake frequency: holidays/special occasions only Alcohol type: beer, wine and hard liquor Patient Tobacco Use Status: Never used Tobacco e-Cigarette/Vaping Use: Never Used Second Hand Smoke Exposure: No service: No Current occupational status: employed Current occupational exposures/hazards: No Cognitive needs: No Hearing needs: No Vision needs: No Assessment & Plan Assessment & Plan (1) Obesity (BMI 35.0-39.9 without comorbidity): Code(s): E66.9 - Obesity, unspecified Plan: Educate Pt on [id number] yady meal plan ? Used wt : 104 kg ( 98.6 kg on 05/10/23) (99.5 07/2023) Est kcal as per MSJ: 2176-250/500 = 1676- 1926 (40% carb, 30% fat/prot) Est fluid needs:2600 ml/d (25 ml/kg bw) Rec fiber: increase to 8-10 g per day and gradually increase to 25 g/d or as tolerated Rec Na: < 2000 mg /d Educate patient on: (R= Reviewed, V = verbalizes understanding N/R= Needs review N/A= not applicable) Food sources of carbohydrates and serving adequate serving sizes : R V Difference between complex carbohydrates and simple carbohydrates, role of fiber: R Differences between fats (MUFA/PUFA/saturated fats, trans fats) and food sources of various fats: R , basic low fat concepts Food sources of sodium and salt and healthy modifications for heart health and kidney health: R How to interpret food labels: R Healthy Plate method concept: R Physical activity: benefits and precaution: V Patient Instructions: Have a meal replacement instead of skipping lunch Try a salad with 4-5 oz of lean protein at dinner once a week Drink water , reduce on juice drinks Coding Level of Care Code Nutr Indiv Subseq (34649) Diagnoses Obesity (BMI 35.0-39.9 without comorbidity) E66.9 Time Spent (min) 30
== END 2023-08-02 13:09 | disposition home or self-care (01) ==
PROVIDERS: PCP Internal Medicine; Visit Provider Dietitian, Registered
DX: E66.9 Obesity, unspecified (principal)

== ENCOUNTER → 2023-08-02 12:37 | Outpatient (BNVA) | payer OTHER, SELFPAY | PROVIDERS: PCP Internal Medicine; Visit Provider Dietitian, Registered | DX: E66.9 Obesity, unspecified (principal); Z68.37 Body mass index [BMI] 37.0-37.9, adult | CPT/HCPCS: 97803 ==

== ENCOUNTER 2023-09-19 10:54 | Outpatient (AMB) | payer OTHER, SELFPAY ==
--- NOTE | 2023-09-19 11:05 | A.OFFVIS_ITS ---
Intake Vital Signs 09/19/23 11:07 Height 5 ft 4 in Weight 218 lb 4.122 oz BMI 37.5 BP 149/67 H Blood Pressure Location Lt brachial Position Sitting Pulse 73 Intake Visit Reasons: abdominal pain Intake Note: Sada presents in the office as a follow up for abdominal pains. CC: She states that she is having pains in her stomach but denies any irregular bowel movements. Passenger Relations Representative Required: Yes Passenger Relations Representative Name: [id number] Jenna Allergies lisinopril Adverse Reaction (Intermediate, Verified 09/19/23 11:15) cough nifedipine Adverse Reaction (Intermediate, Verified 09/19/23 11:15) Chest pain/headache HPI HPI Comments History of Present Illness Details 62y.o F here for left sided abdominal pa in. Pt seen with the help of siding mechanic. 02/08/23: Reports pain started almost a month ago and was seen in the ER for the same. Pain is described as pressure which comes and goes, triggered by food and relieved by pain meds such as tylenol or ibuprofen. No bowel changes. No N/V. Prev colo was 2012. 09/19/23: Patient here for follow-up, as missed her previous colonoscopy appointments. She is willing to rescheduled today. Otherwise, no changes in symptoms. Doing well apart from occasional constipation which in turn causes left-sided abdominal pain. [facility] Medical History Lipoma of right upper extremity Cough LIBRA (obstructive sleep apnea) Obesity (BMI 35.0-39.9 without comorbidity) Elevated random blood glucose level Morbid obesity with BMI of 40.0-44.9, adult Blurred vision Leukocytosis Bunion of great toe of left foot Foot pain, bilateral Obesity Strain of left Achilles tendon, initial encounter Hypertension, essential Uncontrolled hypertension Chronic GERD Surgical History Hx of colonoscopy History of partial hysterectomy Family History Mother Hypotension Father Multiple myeloma Father No problems noted. Mother Alzheimer's disease Dementia Daughter No problems noted. Social History Housing: Apartment Alcohol intake: current Alcohol intake frequency: holidays/special occasions only Alcohol type: beer, wine and hard liquor Patient Tobacco Use Status: Never used Tobacco e-Cigarette/Vaping Use: Never Used Second Hand Smoke Exposure: No service: No Current occupational status: employed Current occupational exposures/hazards: No Cognitive needs: No Hearing needs: No Vision needs: No Review of Systems Const All systems reviewed & are unremarkable except as noted in HPI and below Physical Exam Vital Signs: Last Vital Signs Pulse 73 09/19/23 11:07 BP 149/67 H 09/19/23 11:07 BMI result Body Mass Index 37.5 Gen appear: NAD, well nourished HEENT: no icterus, no cervical lymphadenopathy Chest: clear to auscultation CVS: Regular S1/S2 Abd: soft, nontender, nondistended Ext: no peripheral edema Neuro: A/Ox3, noted to move all extremities spontaneously Assessment & Plan Assessment & Plan (1) Left upper quadrant pain: Code(s): R10.12 - Left upper quadrant pain Plan: Will facilitate rescheduling her colonoscopy for intermittent left upper quadrant pain. No abd pain today. Ddx include constipation, diverticular disease. Colitis less liekly as typically related to diarrhea. Split PEG prep was sent again to her pharmacy and instructions were reviewed in n[place]ien. Pt aware that this will be booked in an elective manner. Follow up after colo. Medications: Refilled peg 3350-electrolytes 236-22.74-6.74 -5.86 gram (Golytely) as per split prep instructions, until fecal effluent is clear 240 mL PO Q10M 4,000 mL 0RF colonoscopy Coding Level of Care Code Est Pt Level 3 (96549) Diagnoses Left upper quadrant pain R10.12
[2023-09-19 11:07] VITALS: BP 149/67; PULSE 73; BMI 37.5
== END 2023-09-19 11:56 | disposition home or self-care (01) ==
PROVIDERS: PCP Internal Medicine; Visit Provider Internal Medicine
DX: R10.12 Left upper quadrant pain (principal)
CPT/HCPCS: 99213

== ENCOUNTER → 2023-09-19 10:54 | Outpatient (BNVA) | payer OTHER, SELFPAY | PROVIDERS: PCP Internal Medicine; Visit Provider Internal Medicine | DX: R10.12 Left upper quadrant pain (principal) | CPT/HCPCS: 99212 ==

== ENCOUNTER 2023-11-06 10:21 | Outpatient (AMB) | payer OTHER, SELFPAY ==
[2023-11-06 10:34] VITALS: BMI 37.3
--- NOTE | 2023-11-06 10:34 | A.OFFVIS_ITS ---
Intake VS Expanded 11/06/23 10:34 Height 5 ft 4 in Weight 217 lb 9.54 oz BMI 37.3 Intake Visit Reasons: Obesity/LVM Allergies lisinopril Adverse Reaction (Intermediate, Verified 09/19/23 11:15) cough nifedipine Adverse Reaction (Intermediate, Verified 09/19/23 11:15) Chest pain/headache HPI Nutrition Presentation Details Pt presents for MNT f/u for obesity. Pt reports working on gradually reducing portion sizes and working on limiting intake of sugars/pastries Tries fasting 3-4 times a week with 50 % success Reports increasing fiber rich foods via fruits/veg intake Including fish 2 -3 times/week Keeps hydrated by having water and flavored infused water denies constipation/diarrhea physical activity : sedentary/sedentary job Most Recent Diabetes Results: No Data to Display [facility] Medical History Lipoma of right upper extremity Cough LIBRA (obstructive sleep apnea) Obesity (BMI 35.0-39.9 without comorbidity) Elevated random blood glucose level Morbid obesity with BMI of 40.0-44.9, adult Blurred vision Leukocytosis Bunion of great toe of left foot Foot pain, bilateral Obesity Strain of left Achilles tendon, initial encounter Hypertension, essential Uncontrolled hypertension Chronic GERD Surgical History Hx of colonoscopy History of partial hysterectomy Family History Mother Hypotension Father Multiple myeloma Father No problems noted. Mother Alzheimer's disease Dementia Daughter No problems noted. Social History Housing: Apartment Alcohol intake: current Alcohol intake frequency: holidays/special occasions only Alcohol type: beer, wine and hard liquor Patient Tobacco Use Status: Never used Tobacco e-Cigarette/Vaping Use: Never Used Second Hand Smoke Exposure: No service: No Current occupational status: employed Current occupational exposures/hazards: No Cognitive needs: No Hearing needs: No Vision needs: No Assessment & Plan Assessment & Plan (1) Obesity (BMI 35.0-39.9 without comorbidity): Code(s): E66.9 - Obesity, unspecified Plan: Educate Pt on [id number] yady meal plan ? Used wt : 104 kg ( 98.6 kg on 05/10/23) (99.5 07/2023), 99kg (10/2023) Est kcal as per MSJ: 2176-250/500 = 1676- 1926 (40% carb, 30% fat/prot) Est fluid needs:2600 ml/d (25 ml/kg bw) Rec fiber: increase to 8-10 g per day and gradually increase to 25 g/d or as tolerated Rec Na: < 2000 mg /d Educate patient on: (R= Reviewed, V = verbalizes understanding N/R= Needs review N/A= not applicable) * Food sources of carbohydrates and serving adequate serving sizes : R V * Difference between complex carbohydrates and simple carbohydrates, role of fiber: R * Differences between fats (MUFA/PUFA/saturated fats, trans fats) and food sources of various fats: R , basic low fat concepts * Food sources of sodium and salt and healthy modifications for heart health an d kidney health: R * How to interpret food labels: R * Healthy Plate method concept: R * Physical activity: benefits and precaution: V Patient Instructions: Engage in physical activity , walk as able for 30 minutes at least 3 times a week keep hydrated by having water with meals goal weight loss by next f/u 5-8 lbs less Coding Level of Care Code Nutr Indiv Subseq (32782) Diagnoses Obesity (BMI 35.0-39.9 without comorbidity) E66.9 Time Spent (min) 30
== END 2023-11-06 10:58 | disposition home or self-care (01) ==
PROVIDERS: PCP Internal Medicine; Visit Provider Dietitian, Registered
DX: E66.9 Obesity, unspecified (principal)

== ENCOUNTER → 2023-11-06 10:30 | Outpatient (BNVA) | payer OTHER, SELFPAY | PROVIDERS: PCP Internal Medicine; Visit Provider Dietitian, Registered | DX: E66.9 Obesity, unspecified (principal); Z68.35 Body mass index [BMI] 35.0-35.9, adult | CPT/HCPCS: 97803 ==

== ENCOUNTER 2023-11-14 09:18 | Outpatient (AMB) | payer OTHER, SELFPAY ==
[2023-11-14 09:23] VITALS: BP 130/84; PULSE 63; BMI 37.6
--- NOTE | 2023-11-14 09:23 | A.OFFVIS_ITS ---
Intake Vital Signs 11/14/23 09:23 Height 5 ft 4 in Weight 219 lb 2.232 oz BMI 37.6 BP 130/84 Blood Pressure Location Lt brachial Position Sitting Pulse 63 Pulse Source Monitor Intake Visit Reasons: 3 mth f/up Pulmonary Function Technologist Required: Yes Pulmonary Function Technologist Language: Realtime Captioner Name: angélica palencia [id number] Allergies lisinopril Adverse Reaction (Intermediate, Verified 11/14/23 09:25) cough nifedipine Adverse Reaction (Intermediate, Verified 11/14/23 09:25) Chest pain/headache Medication List - Last Reconciled 11/14/23 by Lena Nelson, [employer] acetaminophen 500 mg PO BID PRN 90 days [Adult Pull UPs As directed] amlodipine 5 mg PO DAILY 90 days aspirin 81 mg PO DAILY 90 days atenolol 100 mg PO DAILY 90 days [Blood pressure monitor As directed] omeprazole 40 mg PO DAILY 90 days peg 3350-electrolytes 236-22.74-6.74 -5.86 gram (Golytely) 240 mL PO Q10M spironolacton-hydrochlorothiaz 25-25 mg 1 tab PO DAILY 90 days HPI 3 mth f/up HPI Details Brittaney is a 63-year-old female with past medical history obesity, hypertension, sleep apnea who presents for follow-up. Today she reports that she has been getting a stabbing pulsation below her left breast which occurs randomly and lasts a few seconds. She has been going to the gym up to 3 times weekly which she is tolerating without any concerning symptoms fatigue. She does not get her chest symptom at the gym. No concerning shortness of breath, palpitations, lightheadedness, presyncope, syncope, PND, orthopnea or edema. Tells me that she forgets her meds on some days. She did take her meds today. [facility] Medical History Lipoma of right upper extremity Cough LIBRA (obstructive sleep apnea) Obesity (BMI 35.0-39.9 without comorbidity) Elevated random blood glucose level Morbid obesity with BMI of 40.0-44.9, adult Blurred vision Leukocytosis Bunion of great toe of left foot Foot pain, bilateral Obesity Strain of left Achilles tendon, initial encounter Hypertension, essential Uncontrolled hypertension Chronic GERD Surgical History Hx of colonoscopy History of partial hysterectomy Family History Mother Hypotension Father Multiple myeloma Father No problems noted. Mother Alzheimer's disease Dementia Daughter No problems noted. Social History Housing: Apartment Alcohol intake: current Alcohol intake frequency: holidays/special occasions only Alcohol type: beer, wine and hard liquor Patient Tobacco Use Status: Never used Tobacco e-Cigarette/Vaping Use: Never Used Second Hand Smoke Exposure: No service: No Current occupational status: employed Current occupational exposures/hazards: No Cognitive needs: No Hearing needs: No Vision needs: No Review of Systems Const All systems reviewed & are unremarkable except as noted in HPI and below Reports fatigue ENT Denies dizziness Card Reports chest pain, Denies chest pain at rest, Denies chest pain with activity, Denies rapid heart rate, Denies pedal edema, Denies edema, Denies leg edema, Denies lightheadedness, Denies palpitations, Denies dyspnea, Denies dyspnea on exertion and Denies orthopnea Resp Denies cough, Denies dyspnea and Denies dyspnea on exertion GI Denies hematochezia and Denies change in stool character Musc Denies abnormal gait, Reports limited range of motion, Reports muscle cramps, Denies muscle weakness, Denies numbness, Denies radiating pain into limb, Denies stiffness and Denies tingling Neuro Denies abnormal gait, Denies dizziness, Denies numbness and Denies tingling Endo Reports fatigue and Denies palpitations Physical Exam Vital Signs: Last Vital Signs Pulse 63 11/14/23 09:23 BP 130/84 11/14/23 09:23 BMI result Body Mass Index 37.6 Const General: cooperative, healthy appearing, comfortable and no acute distress Orientation/consciousness: patient oriented x3 Neck Neck: Yes normal visual inspection and Yes no JVD Resp Effort & Inspection: normal respiratory effort Auscultation: clear to auscultation bilaterally, no crackles, no rales, no rhonchi and no wheezes Cardio Jugular venous distension: no JVD Rate: regular rate Rhythm: regular rhythm Heart sounds: S1 normal heart sound present, S2 normal heart sound present, no murmurs and no rubs Neuro General: patient oriented x3 Extrem General: Yes normal to inspection, No no pedal edema and No calf tenderness Psych Appearance: grossly normal Mental Status: mental status grossly normal Speech and movement: Normal speech and movement present Office Procedures EKG Details: Today, read by me, normal sinus rhythm, rate 63, QTC 427 milliseconds [id number], Complete Assessment & Plan Assessment & Plan (1) Chest discomfort: Code(s): R07.89 - Other chest pain Plan: Atypical sounding discomfort below her left breast. EKG done today showing normal sinus rhythm with no acute ST or T-wave abnormalities, rate 63. Patient had an exercise stress test back on 02/02/2023 with exercise 6 minutes, mild shortness of breath, no EKG changes of ischemia. Her blood pressure did rise to 200/60 at that time. Her last echocardiogram was done 08/19/2021 showing normal LV size and function, normal RV and normal diastolic function. Cardiac risk factors of hypertension, obesity. Her symptom is nonexertional and sounds more like chest wall in nature. Offered reassurance. Signs and symptoms of true angina reviewed with her. Emergency care if ever needed for symptoms. Cardiology follow-up in 1 year, sooner if needed. (2) Hypertension, essential: Code(s): I10 - Essential (primary) hypertension Plan: History of hypertension, currently well controlled. She is on amlodipine, atenolol, Aldactone/hydrochlorothiazide combination pill. She tells me she does missed taking her pills on some days as she forgets. The strict importance of med compliance reviewed with her. Informed that uncontrolled hypertension can cause SC or stroke. No med changes made today. (3) Obesity: Comment: Weight management was discussed with the patient, healthy eating habits Reinforced Code(s): E66.9 - Obesity, unspecified Plan: Applauded on her routine exercise. Continue as tolerated. The benefits a weight loss reviewed. Plan Time spent on chart review, documentation, interview and assessment Coding Level of Care Code Est Pt Level 4 (11859) Diagnoses Chest discomfort R07.89 Hypertension, essential I10 Obesity E66.9 CPT Codes EKG - CPT: 42370-[id number], Complete ([id number]) Time Spent (min) 28
== END 2023-11-14 09:53 | disposition home or self-care (01) ==
PROVIDERS: PCP Internal Medicine; Visit Provider Nurse Practitioner Family
DX: R07.89 Other chest pain (principal); I10 Essential (primary) hypertension; E66.9 Obesity, unspecified
CPT/HCPCS: 93010; 99214

== ENCOUNTER → 2023-11-14 09:18 | Outpatient (BNVA) | payer OTHER, SELFPAY | PROVIDERS: PCP Internal Medicine; Visit Provider Nurse Practitioner Family | DX: R07.89 Other chest pain (principal); I10 Essential (primary) hypertension; E66.9 Obesity, unspecified; Z68.37 Body mass index [BMI] 37.0-37.9, adult | CPT/HCPCS: 93005; 99212 ==

== ENCOUNTER 2023-12-14 08:34 | Day surgery (SDC) | payer OTHER, SELFPAY ==
[2023-12-12 11:11] VITALS: BMI 37.6
[2023-12-14 09:19] VITALS: BP 145/74; PULSE 86; RESP 18; TEMP 36.8; O2SAT 98; BMI 37.4
--- NOTE | 2023-12-14 10:10 | HO.ANESPROP2 ---
[facility] Active Problems Active Problems: All Active Problems Chest discomfort (Acute) Urge urinary incontinence (Acute) Left upper quadrant pain (Acute) Lipoma of right upper extremity (Acute) Lipoma (Acute) Cough (Acute) LIBRA (obstructive sleep apnea) (Acute) Obesity (BMI 35.0-39.9 without comorbidity) (Acute) Physical exam (Acute) Immunization due (Acute) Elevated random blood glucose level (Acute) LIBRA (obstructive sleep apnea) (Acute) Dyspnea on exertion (Acute) Morbid obesity with BMI of 40.0-44.9, adult (Acute) Chronic GERD (Acute) Blurred vision (Acute) Leukocytosis (Acute) Bunion of great toe of left foot (Acute) Hypertension, essential (Acute) Strain of left Achilles tendon, initial encounter (Acute) Obesity (Acute) Foot pain, bilateral (Acute) Sleep-disordered breathing (Acute) Hospital discharge follow-up (Acute) Uncontrolled hypertension (Acute) Morbid obesity (Acute) Achilles tendinitis of left lower extremity (Acute) Hypertension, essential (Acute) Past Medical History Medical History Lipoma of right upper extremity Cough LIBRA (obstructive sleep apnea) Obesity (BMI 35.0-39.9 without comorbidity) Elevated random blood glucose level Morbid obesity with BMI of 40.0-44.9, adult Blurred vision Leukocytosis Bunion of great toe of left foot Foot pain, bilateral Obesity Strain of left Achilles tendon, initial encounter Hypertension, essential Uncontrolled hypertension Chronic GERD Functional capacity: independent ambulation Family History Family History Mother Hypotension Father Multiple myeloma Father No problems noted. Mother Alzheimer's disease Dementia Daughter No problems noted. Surgical History Surgical History Hx of colonoscopy History of partial hysterectomy History of Problems with Anesthesia: No Social History Social History Housing: Apartment Alcohol intake: current Alcohol intake frequency: holidays/special occasions only Alcohol type: beer, wine and hard liquor Patient Tobacco Use Status: Never used Tobacco e-Cigarette/Vaping Use: Never Used Second Hand Smoke Exposure: No Advance Directives: No Advance Directives Information Provided: Yes Advance Directives on File: No service: No Current occupational status: employed Current occupational exposures/hazards: No Cognitive needs: No Hearing needs: No Vision needs: No Meds Allergies Allergy/AdvReac Type Severity Reaction Status Date / Time lisinopril AdvReac Intermediate cough Verified 11/14/23 09:25 nifedipine AdvReac Intermediate Chest Verified 11/14/23 09:25 pain/headache Exam Height,Weight and Vital Signs: Height 5 ft 4 in Weight 98.883 kg Last Vital Signs Temp 98.2 F 12/14/23 09:19 Pulse 86 12/14/23 09:19 Resp 18 12/14/23 09:19 BP 145/74 H 12/14/23 09:19 Pulse Ox 98 12/14/23 09:19 O2 Del Method Room Air 12/14/23 09:19 Airway Mallampati Class: III TM Dist: >3cm Neck ROM: Full Heart: RRR Lungs: CYA Assessment and Plan Assessment Anesthesia Assessment: Anesthesia Plan Discussed Final Anesthetic Review History of Problems with Anesthesia: No ASA Class: III Final Preanesthetic Review: Meds/Allgs Chart Reviewed, Consent Obtained/Reviewed and Anes Risks/Benef Reviewed Patient Risk: Intermediate Procedure Risk: Low Anesthetic Plan Anesthetic Plan: MAC: Disposition: Standard PACU
--- NOTE | 2023-12-14 10:19 | MHC.SHP ---
Pre-Procedural Eval Section A - 24 Hr Update-Section A only Date of Service: 12/14/23 Section B - Complete if H&P > 30 days Chief Complaint: Left upper quadrant pain Details of Present Illness: Hx of colonoscopy History of partial hysterectomy Family History Mother Hypotension Father Multiple myeloma Father No problems noted. Mother Alzheimer's disease Dementia Daughter No problems noted. Allergies: Allergies Allergy/AdvReac Type Severity Reaction Status Date / Time lisinopril AdvReac Intermediate cough Verified 11/14/23 09:25 nifedipine AdvReac Intermediate Chest Verified 11/14/23 09:25 pain/headache Review of Systems Review of Systems Comment: 10 point ROS negative Exam Exam Comment: Gen appear: No acute distress HEENT: no icterus Chest: No overt resp distress Abd: soft, nontender, nondistended Psych: Stable affect, answering questions appropriately Neuro: A/Ox3 noted to move all extremities spontaneously Ext: no peripheral edema Plan Diagnosis/Plan: Unchanged I have reviewed the history and physical and performed a pertinent physical examination on my patient. No changes have occurred unless specified. Time Spent With Patient Time: Total time managing care of this patient today ____ minutes.
--- NOTE | 2023-12-14 11:28 | P.OP_ITS ---
Operative Note Operative Note Date of Service: 12/14/23 Narrative: Procedure: Colonoscopy Indication: Screening Endoscopist: Lilliam Conklin MD Anesthesia Provider: Dominique Bishop CRNA Anesthesia type: MAC Instrument: Olympus [id number]-[id number] Consent: Indication, risks vs benefits, and alternatives were discussed with the patient who gave written informed consent to proceed. EKG, pulse, pulse oximetry and blood pressure were monitored throughout the procedure. Please see anesthesia flowsheet. Procedure: The patient was brought to the procedure room and placed in the left lateral decubitus position. IV medications were administered by the anesthesia provider in attendance. A digital rectal exam was performed which was normal. A distal attachment cap was affixed to the tip of the scope and the colonoscope was then inserted through the anus and advanced through the colon to the cecum at 75 cm,and terminal ileum. Mucosa was carefully examined under high definition white light as the instrument was slowly withdrawn in a retrograde panoramic fashion. Retroflexion was performed in rectum. The procedure was not difficult. There were no immediate obvious complications. The quality of the prep was BBPS: 2+3+3 = adequate Withdrawal time 11 minutes. Limitations: No limitations. Findings: Mucosa: Normal to cecum and terminal ileum. Protruding lesions: * Medium internal hemorrhoids without stigmata of recent bleeding. Excavated lesions: * Moderate diverticulosis of sigmoid colon. Impression: 1. Normal colon mucosa 2. Diverticulosis 3. External and internal hemorrhoids Recommendations: - Repeat colonoscopy in 10 years for asymptomatic colorectal cancer screening
[2023-12-14 11:36] VITALS: BP 90/52; PULSE 67; RESP 16; TEMP 36.8; O2SAT 95
[2023-12-14 11:41] VITALS: BP 114/66; PULSE 75; RESP 16; O2SAT 97
[2023-12-14 11:52] VITALS: BP 126/73; PULSE 64; RESP 16; TEMP 36.9; O2SAT 98
--- NOTE | 2023-12-14 14:37 | HO.POSTANES ---
Post Anesthesia Evaluation Post Anesthesia Evaluation Date of Service: 12/14/23 Vital Signs: Vital Signs Temp Pulse Resp BP Pulse Ox O2 Del Method O2 Flow Rate 12/14/23 11:52 98.4 F 64 16 126/73 98 Room Air 12/14/23 11:41 75 16 114/66 97 Room Air 12/14/23 11:36 98.2 F 67 16 90/52 L 95 Nasal Cannula 2 12/14/23 09:19 98.2 F 86 18 145/74 H 98 Room Air Anesthesia: Monitored Mental Status: Awake Pain Control: Satisfactory Nausea/Vomiting: None Hydration: Adequate Anesthesia-Related Issues: No Anes. Related Issues
== END 2023-12-14 12:26 | disposition home or self-care (01) ==
PROVIDERS: PCP Internal Medicine; Visit Provider Internal Medicine
PROC: 0DJD8ZZ Inspection of Lower Intestinal Tract, Via Natural or Artificial Opening Endoscopic (ICD-10-PCS; CPT 45378; principal; 2023-12-14 11:00)
DX: Z12.11 Encounter for screening for malignant neoplasm of colon (principal); K57.30 Diverticulosis of large intestine without perforation or abscess without bleeding; K64.8 Other hemorrhoids; K64.4 Residual hemorrhoidal skin tags; K21.9 Gastro-esophageal reflux disease without esophagitis; I10 Essential (primary) hypertension; R73.09 Other abnormal glucose; G47.33 Obstructive sleep apnea (adult) (pediatric); E66.9 Obesity, unspecified; Z68.37 Body mass index [BMI] 37.0-37.9, adult; Z88.8 Allergy status to other drugs, medicaments and biological substances; Z90.711 Acquired absence of uterus with remaining cervical stump
CPT/HCPCS: 45378; J2704

== ENCOUNTER → 2023-12-14 08:34 | Outpatient (BNV) | payer OTHER, SELFPAY | PROVIDERS: PCP Internal Medicine; Visit Provider Internal Medicine | DX: Z12.11 Encounter for screening for malignant neoplasm of colon (principal); K57.30 Diverticulosis of large intestine without perforation or abscess without bleeding; K64.8 Other hemorrhoids | CPT/HCPCS: 45378 ==

== ENCOUNTER 2024-01-01 12:56 | Outpatient (AMB) | payer OTHER, SELFPAY ==
--- NOTE | 2024-01-01 12:57 | MHC.OFFVIS ---
Vital Signs 01/01/24 13:00 Height 5 ft 4 in Weight 218 lb 4.122 oz BMI 37.5 BP 144/80 H Blood Pressure Location Lt brachial Position Sitting Pulse 60 Intake Visit Reasons: S/P Colon Intake Note: Sada presents in the office as a follow up colonoscopy. CC: She is here today for the results to her colonoscopy - no concerns. Microarray Operations Vice President Required: Yes Microarray Operations Vice President Name: Lucrecia [id number] Allergies lisinopril Adverse Reaction (Intermediate, Verified 01/01/24 13:00) cough nifedipine Adverse Reaction (Intermediate, Verified 01/01/24 13:00) Chest pain/headache HPI Comments Details: 62y.o F here for left sided abdominal pain. Pt seen with the help of footwear sales coordinator. 02/08/23: Reports pain started almost a month ago and was seen in the ER for the same. Pain is described as pressure which comes and goes, triggered by food and relieved by pain meds such as tylenol or ibuprofen. No bowel changes. No N/V. Prev colo was 2012. 09/19/23: Patient here for follow-up, as missed her previous colonoscopy appointments. She is willing to rescheduled today. Otherwise, no changes in symptoms. Doing well apart from occasional constipation which in turn causes left-sided abdominal pain. 12/14/23: Impression: 1. Normal colon mucosa 2. Diverticulosis 3. External and internal hemorrhoids 01/01/24: Results of the colo reviewed. Pt currently has no GI concerns. Findings of diverticulosis reviewed in details. [facility] Medical History Lipoma of right upper extremity Cough LIBRA (obstructive sleep apnea) Obesity (BMI 35.0-39.9 without comorbidity) Elevated random blood glucose level Morbid obesity with BMI of 40.0-44.9, adult Blurred vision Leukocytosis Bunion of great toe of left foot Foot pain, bilateral Obesity Strain of left Achilles tendon, initial encounter Hypertension, essential Uncontrolled hypertension Chronic GERD Surgical History Hx of colonoscopy History of partial hysterectomy Family History Mother Hypotension Father Multiple myeloma Father No problems noted. Mother Alzheimer's disease Dementia Daughter No problems noted. Social History Housing: Apartment Alcohol intake: current Alcohol intake frequency: holidays/special occasions only Alcohol type: beer, wine and hard liquor Patient Tobacco Use Status: Never used Tobacco e-Cigarette/Vaping Use: Never Used Second Hand Smoke Exposure: No service: No Current occupational status: employed Current occupational exposures/hazards: No Cognitive needs: No Hearing needs: No Vision needs: No Review of Systems Const All systems reviewed & are unremarkable except as noted in HPI and below Physical Exam Vital Signs: Last Vital Signs Pulse 60 01/01/24 13:00 BP 144/80 H 01/01/24 13:00 BMI result Body Mass Index 37.5 No apparent distress Nonicteric Abdomen soft, nondistended Alert and oriented x3, normal gait Assessment & Plan Assessment & Plan (1) Left upper quadrant pain: Code(s): R10.12 - Left upper quadrant pain Category: Medical (2) Diverticula of colon: Code(s): K57.30 - Diverticulosis of large intestine without perforation or abscess without bleeding Category: Medical Plan Pt reassured of normal colo findings. Does not have any LLQ pain since last visit in Aug but was likely diverticular related given location. Advised measures including fiber intake, taking meat and etOH in moderation. Next colo for asymptomatic screening in 10 years. Follow up PRN Medications: New polyethylene glycol 3350 (Miralax) 17 grams PO DAILY PRN 238 grams 0RF constipation wheat dextrin (Benefiber Healthy Shape) 15 grams PO DAILY 1,350 grams 1RF constipation 90 days Coding Level of Care Code Est Pt Level 3 (91267) Diagnoses Left upper quadrant pain R10.12 Diverticula of colon K57.30
[2024-01-01 13:00] VITALS: BP 144/80; PULSE 60; BMI 37.5
== END 2024-01-01 16:10 | disposition home or self-care (01) ==
PROVIDERS: PCP Internal Medicine; Visit Provider Internal Medicine
DX: R10.12 Left upper quadrant pain (principal); K57.30 Diverticulosis of large intestine without perforation or abscess without bleeding
CPT/HCPCS: 99213

== ENCOUNTER → 2024-01-01 12:56 | Outpatient (BNVA) | payer OTHER, SELFPAY | PROVIDERS: PCP Internal Medicine; Visit Provider Internal Medicine | DX: R10.12 Left upper quadrant pain (principal) | CPT/HCPCS: 99212 ==

== ENCOUNTER 2024-01-08 08:24 | Outpatient (REF) | payer OTHER, SELFPAY ==
--- NOTE | ~2024-01-08 | MM_ITS ---
EXAMINATION: MM SCREENING DIGITAL BREAST TOMOSYNTHESIS, BILATERAL CLINICAL INFORMATION: Screening. Asymptomatic. COMPARISON: Mammography: This study is compared with prior exams dating back to 2019. TECHNIQUE: Digital breast tomosynthesis is performed in both the craniocaudal and mediolateral oblique views along with computer-aided detection (CAD). Synthesized 2D images are generated from the tomosynthesis. FINDINGS: There are scattered areas of fibroglandular density (ACR BI-RADS breast composition Category b). There are no significant masses, abnormal calcifications, or other abnormalities. There are scattered benign calcifications in each breast. MM/MM tomosynthesis screening BI IMPRESSION: No mammographic evidence of malignancy. ASSESSMENT: BI-RADS BI-RADS 2 - Benign Findings RECOMMENDATION: Routine annual mammography screening. 1 year F/U This examination should not preclude the clinical evaluation of a suspicious palpable abnormality. This patient's information was entered into a reminder system with a target due date for their next mammogram.
== END 2024-01-08 08:25 | disposition home or self-care (01) ==
LOC: HO.MAMMO 08:24
PROVIDERS: PCP Internal Medicine; Visit Provider Internal Medicine
DX: Z12.31 Encounter for screening mammogram for malignant neoplasm of breast (principal)
CPT/HCPCS: 77063; 77067

== ENCOUNTER → 2024-01-08 08:30 | Outpatient (BNV) | payer OTHER, SELFPAY | PROVIDERS: PCP Internal Medicine; Visit Provider Radiology Diagnostic Radiology | DX: Z12.31 Encounter for screening mammogram for malignant neoplasm of breast (principal) | CPT/HCPCS: 77063; 77067 ==

== ENCOUNTER 2024-02-05 10:03 | Outpatient (AMB) | payer OTHER, SELFPAY ==
[2024-02-05 10:14] VITALS: BMI 37.8
--- NOTE | 2024-02-05 10:14 | A.OFFVIS_ITS ---
VS Expanded 02/05/24 10:14 Height 5 ft 4 in Weight 220 lb 7.396 oz BMI 37.8 Intake Visit Reasons: obesity/LVM Allergies lisinopril Adverse Reaction (Intermediate, Verified 01/01/24 13:00) cough nifedipine Adverse Reaction (Intermediate, Verified 01/01/24 13:00) Chest pain/headache Nutrition Presentation Details: Pt presents for MNT f/u for obesity Pt report dietary indiscretion r/t vacation BS Monitoring Most Recent Diabetes Results: No Data to Display [facility] Medical History Lipoma of right upper extremity Cough LIBRA (obstructive sleep apnea) Obesity (BMI 35.0-39.9 without comorbidity) Elevated random blood glucose level Morbid obesity with BMI of 40.0-44.9, adult Blurred vision Leukocytosis Bunion of great toe of left foot Foot pain, bilateral Obesity Strain of left Achilles tendon, initial encounter Hypertension, essential Uncontrolled hypertension Chronic GERD Surgical History Hx of colonoscopy History of partial hysterectomy Family History Mother Hypotension Father Multiple myeloma Father No problems noted. Mother Alzheimer's disease Dementia Daughter No problems noted. Social History Housing: Apartment Alcohol intake: current Alcohol intake frequency: holidays/special occasions only Alcohol type: beer, wine and hard liquor Patient Tobacco Use Status: Never used Tobacco e-Cigarette/Vaping Use: Never Used Second Hand Smoke Exposure: No service: No Current occupational status: employed Current occupational exposures/hazards: No Cognitive needs: No Hearing needs: No Vision needs: No Assessment & Plan Assessment & Plan (1) Obesity (BMI 35.0-39.9 without comorbidity): Code(s): E66.9 - Obesity, unspecified Category: Medical Plan: Educate Pt on 1800 yady meal plan ? Used wt : 104 kg ( 98.6 kg on 05/10/23) (99.5 07/2023), 99kg (10/2023) Est kcal as per MSJ: 2176-250/500 = 1676- 1926 (40% carb, 30% fat/prot) Est fluid needs:2600 ml/d (25 ml/kg bw) Rec fiber: increase to 8-10 g per day and gradually increase to 25 g/d or as tolerated Rec Na: < 2000 mg /d Educate patient on: (R= Reviewed, V = verbalizes understanding N/R= Needs review N/A= not applicable) * Food sources of carbohydrates and serving adequate serving sizes : R V * Difference between complex carbohydrates and simple carbohydrates, role of f iber: R * Differences between fats (MUFA/PUFA/saturated fats, trans fats) and food sources of various fats: R , basic low fat concepts * Food sources of sodium and salt and healthy modifications for heart health and kidney health: R * How to interpret food labels: R * Healthy Plate method concept: R * Physical activity: benefits and precaution: V Patient Instructions: Reduce on calories by 500 (reduce on portion, less fats in the diet, choose water and beverages with less sugar) Coding Level of Care Code Nutr Indiv Subseq (93700) Diagnoses Obesity (BMI 35.0-39.9 without comorbidity) E66.9 Time Spent (min) 30
== END 2024-02-05 10:39 | disposition home or self-care (01) ==
PROVIDERS: PCP Internal Medicine; Visit Provider Dietitian, Registered
DX: E66.9 Obesity, unspecified (principal)

== ENCOUNTER → 2024-02-05 10:03 | Outpatient (BNVA) | payer OTHER, SELFPAY | PROVIDERS: PCP Internal Medicine; Visit Provider Dietitian, Registered | DX: E66.9 Obesity, unspecified (principal); Z68.37 Body mass index [BMI] 37.0-37.9, adult | CPT/HCPCS: 97803 ==

== ENCOUNTER 2024-03-07 07:03 | Outpatient (REF) | payer OTHER, SELFPAY ==
[2024-03-07 08:50] LABS: Alanine Aminotransferase 27 U/L (0-31); Albumin Level 4.1 g/dL (3.5-5.0); Alkaline Phosphatase 89 U/L (39-117); Anion Gap 16 (12-20); Aspartate Amino Transferase 21 U/L (5-31); Bilirubin Total 1.1 mg/dL (0.0-1.0); Blood Urea Nitrogen 16 mg/dL (9-16); Calcium 9.9 mg/dL (8.4-10.2); Carbon Dioxide 26 mmol/L (22-29); Chloride 104 mmol/L (96-108); Cholesterol 159 mg/dL (<200); Estimated Glomerular Filt Rate > 60; Glucose Fasting 117 mg/dL (60-99); HDL Cholesterol 54 mg/dL (>40); LDL Cholesterol Calculated 86 mg/dL (<100); Potassium 3.6 mmol/L (3.3-5.1); Sodium 142 mmol/L (135-145); Total Protein 7.5 g/dL (6.5-8.0); Triglycerides 95 mg/dL (<150)
[2024-03-07 09:09] LABS: Thyroid Stimulating Hormone 2.89 uIU/mL (0.32-4.0)
== END 2024-03-07 07:04 | disposition home or self-care (01) ==
LOC: HO.LAB 07:03
PROVIDERS: PCP Internal Medicine; Visit Provider Internal Medicine
DX: Z00.00 Encounter for general adult medical examination without abnormal findings (principal); I10 Essential (primary) hypertension; E78.5 Hyperlipidemia, unspecified; E66.9 Obesity, unspecified
CPT/HCPCS: 36415; 80053; 80061; 84443

== ENCOUNTER 2024-03-11 16:18 | Outpatient (AMB) | payer OTHER, SELFPAY ==
[2024-03-11 16:21] VITALS: BP 122/70; BMI 38.3
--- NOTE | 2024-03-11 16:21 | A.OFFPC_ITS ---
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 Accompanied by: Self / Same As Patient Allergies lisinopril Adverse Reaction (Intermediate, Verified 03/11/24 16:34) cough nifedipine Adverse Reaction (Intermediate, Verified 03/11/24 16:34) Chest pain/headache Medication List - Last Reconciled 03/11/24 by Daria Gambino MD acetaminophen 500 mg PO BID PRN 90 days [Adult Pull UPs As directed] amlodipine 5 mg PO DAILY aspirin 81 mg PO DAILY 90 days atenolol 100 mg PO DAILY 90 days [Blood pressure monitor As directed] omeprazole 40 mg PO DAILY 90 days polyethylene glycol 3350 (Gavilax) 17 grams PO DAILY PRN spironolacton-hydrochlorothiaz 25-25 mg 1 tab PO DAILY 90 days wheat dextrin (Benefiber Healthy Shape) 15 grams PO DAILY 90 days Tobacco use date assessed: 03/11/24 Fall risk assessment: No Falls in past year Last assessed Fall Risk: 03/11/24 Dental Screening Dental Screen Date: 03/11/24 Did you have a dental visit in the last 12 months?: Yes Did you have a dental problem in the last 6 months where you did not have access to dental care?: No Was dental information given to patient?: Patient has dentist HPI HPI Comments History of Present Illness Details This is a 64-year-old female that comes for her physical exam. Mammogram done 2023 was normal. No need for Pap smear due to hysterectomy. Colonoscopy done 2023 was normal and next colonoscopy should be 2033. Complains of right knee pain and would like a cream for it. She is obese with a BMI of 38.3 and I will start her on Wegovy. Side effects were advised. [facility] Medical History (Updated 03/11/24 @ 20:08 by Daria Gambino MD) Morbid obesity Lipoma of right upper extremity Cough LIBRA (obstructive sleep apnea) Obesity (BMI 35.0-39.9 without comorbidity) Elevated random blood glucose level Morbid obesity with BMI of 40.0-44.9, adult Blurred vision Leukocytosis Bunion of great toe of left foot Foot pain, bilateral Obesity Strain of left Achilles tendon, initial encounter Hypertension, essential Uncontrolled hypertension Chronic GERD Surgical History Hx of colonoscopy History of partial hysterectomy Family History Mother Hypotension Father Multiple myeloma Father No problems noted. Mother Alzheimer's disease Dementia Daughter No problems noted. Social History Housing: Apartment Alcohol intake: current Alcohol intake frequency: holidays/special occasions only Alcohol type: beer, wine and hard liquor Patient Tobacco Use Status: Never used Tobacco e-Cigarette/Vaping Use: Never Used Second Hand Smoke Exposure: No service: No Current occupational status: employed Current occupational exposures/hazards: No Cognitive needs: No Hearing needs: No Vision needs: No Questionnaire PHQ-9 Over the last 2 weeks, how often have you been bothered by any of the following problems? 1. Little interest or pleasure in doing things: not at all 2. Feeling down, depressed, or hopeless: not at all 3. Trouble falling or staying asleep, or sleeping too much: nearly every day 4. Feeling tired or having little energy: nearly every day 5. Poor appetite or overeating: several days 6. Feeling bad about yourself - or that you are a failure or have let yourself or your family down: not at all 7. Trouble concentrating on things, such as reading the newspaper or watching television: not at all 8. Moving or speaking so slowly that other people could have noticed. Or the opposite - being so fidgety or restless that you have been moving around a lot more than usual: not at all 9. Thoughts that you would be better off or of hurting yourself in some way: not at all Total score: 7 Depression Screening Interpretation: Positive Depression Screening Follow-up: Existing condition, Follow-up Visit Requested and Declines treatment Depression Screening Done: Yes 43277 - PHQ-9 Billing: Yes Source: Developed by Drs. Luis F Briggs, Brooke Elias, Aydin Brady and colleagues, with an educational guilherme from [employer]. Thrive Questionnaire Date Thrive assessed: 03/11/24 I am a: Patient What is your living situation today?: I have a steady place to live Within the past 12 months, did the food you bought not last and you didn't have the money to get more?: Never true Within the past 12 months, did you worry whether your food would run out before you got money to buy more?: Never true Do you have trouble paying for medicines?: No Do you have trouble getting transportation to medical appointments?: No Do you have trouble paying your heating and electricity bill?: No Do you have trouble taking care of your child, family member or friend?: No Do you have trouble with day-to-day activities such as bathing, preparing meals, shopping, managing finances, etc.?: No Are you currently unemployed and looking for a job?: No Are you interested in more education?: No Please select the resources that you would like help with: None Currently or been in a relationship where the following occur: No concerns reported THRIVE Score: 0 AUDIT C Alcohol Use Questionnaire (AUDIT-C) 1. How often do you have a drink containing alcohol?: Monthly or less 2. How many drinks containing alcohol do you have on a typical day when you are drinking?: 1 or 2 3. How often do you have six or more drinks on one occasion?: Never Total Score: 1 Score Reviewed/Action Taken: No EMILIE-7 AMB Questionnaire EMILIE-7 Date EMILIE - 7 assessed: 03/11/24 Feeling nervous, anxious, or on edge: 0 = Not at all Not being able to stop or control worryin = Not at all Worrying too much about different things: 0 = Not at all Trouble relaxin = Not at all Being so restless that it is hard to sit still: 0 = Not at all Becoming easily annoyed or irritable: 0 = Not at all Feeling afraid as if something awful might happen: 0 = Not at all Total EMILIE-7 score (0-4 normal; 5-9 mild; 10-14 moderate; 15-21 severe): 0 Source: Developed by Drs. Luis F Briggs, Brooke Elias, Aydin Brady and colleagues, with an educational guilherme from [employer]. EMILIE-7 Assessment Billing EMILIE-7 Assessment Tool: EMILIE-7 Assessment 63120 Review of Systems Const All systems reviewed & are unremarkable except as noted in HPI and below Card Denies chest pain at rest, Denies chest pain with activity, Denies edema, Denies irregular heart rhythm, Denies claudication, Denies dyspnea, Denies dyspnea on exertion, Denies orthopnea, Denies paroxysmal nocturnal dyspnea and Denies slow heart rate Resp Denies cough, Denies dyspnea and Denies dyspnea on exertion GI Denies abdominal pain, Denies change in bowel habits, Denies excessive flatus, Denies nausea and Denies vomiting Physical exam (Primary Care) Vital Signs: Last Vital Signs BP 122/70 03/11/24 16:21 BMI result Body Mass Index 38.3 BMI Assessment/Plan discussion: High BMI High, discussed plan: lifestyle, weight reduction, dietary and physical activity Tobacco/Smoking Status: Tobacco use Status Tobacco use date assessed 03/11/24 03/11/24 16:29 Patient Tobacco Use Status Never used Tobacco 03/11/24 16:25 e-Cigarette/Vaping Use Never Used 03/11/24 16:25 PHQ-9: PHQ-9 Score PHQ-9: Total score 7 03/11/24 17:08 Depression Screening Interpretation: Positive Depression Screening Follow-up: Existing condition, Follow-up Visit Requested and Declines treatment Thrive Assessment: Date of Thrive Assessment Date Thrive assessed 03/11/24 03/11/24 16:29 Currently or been in a relationship where the following occur: No concerns reported [facility] Head: Yes normal to inspection, Yes normocephalic and Yes atraumatic Ears: external ears normal Eyes General: appearance normal, both eyes and all related structures Eyelids: Yes eyelids normal Conjunctivae: conjunctivae normal Neck Neck: Yes normal visual inspection and Yes supple Resp Effort & Inspection: normal respiratory effort Auscultation: clear to auscultation bilaterally Cardio Jugular venous distension: no JVD Rate: regular rate Rhythm: regular rhythm Heart sounds: S1 normal heart sound present and S2 normal heart sound present GI Inspection: Yes normal to inspection Palpation (GI): Soft to palpation and nontender Auscultation: normal bowel sounds Skin General skin exam: no rashes or lesions noted Neuro General: no focal motor deficits Extrem General: Yes full ROM Psych Appearance: grossly normal Assessment and Plan Assessment & Plan (1) Physical exam: Code(s): Z00.00 - Encounter for general adult medical examination without abnormal findings Plan: Repeat in a year. (2) Right knee pain: Code(s): M25.561 - Pain in right knee Qualifiers: Chronicity: chronic Qualified Code(s): M25.561 - Pain in right knee; G89.29 - Other chronic pain Plan: Start diclofenac gel. Medications: New diclofenac sodium 1% (Arthritis Pain (diclofenac)) apply to single elbow, wrist or hand; for hand includes palm/fingers/back of hand 2 grams topical QID 30 days PRN 100 grams 0RF pain M25.561 - Pain in right knee semaglutide (weight loss) (Wegovy) administer weeks 1 through 4 of therapy 0.25 mg (0.5 mL) subcut QWEEK 4 weeks 2 mL 0RF E66.9 - Obesity, unspecified, Z68.38 - Body mass index [BMI] 38.0- 38.9, adult Refilled [Blood pressure monitor] As directed 1 ea 0RF I10 - Essential (primary) hypertension Coding Level of Care Code Est Pt Level 3 (08981) Est Pt Prev Care 40-64y(65102) Diagnoses Physical exam Z00.00 Chronic pain of right knee M25.561; G89.29 Chronicity: chronic Additional Codes EMILIE-7 Assessment Billing - EMILIE-7 Assessment Tool: EMILIE-7 Assessment 88217 ([id number]) Time Spent (min) 35
== END 2024-03-11 16:46 | disposition home or self-care (01) ==
PROVIDERS: PCP Internal Medicine; Visit Provider Internal Medicine
DX: Z00.00 Encounter for general adult medical examination without abnormal findings (principal); M25.561 Pain in right knee; G89.29 Other chronic pain
CPT/HCPCS: 99213; 99396

== ENCOUNTER → 2024-05-21 11:02 | Outpatient (AMB) | payer OTHER, SELFPAY ==
[2024-05-21 11:10] VITALS: BMI 39.0
--- NOTE | 2024-05-21 11:10 | A.OFFVIS_ITS ---
VS Expanded 05/21/24 11:10 Height 5 ft 4 in Weight 227 lb 4.745 oz BMI 39.0 Intake Visit Reasons: Obesity/LVM Allergies lisinopril Adverse Reaction (Intermediate, Verified 03/11/24 16:34) cough nifedipine Adverse Reaction (Intermediate, Verified 03/11/24 16:34) Chest pain/headache Nutrition Presentation Details: Pt presents for MNT f/u for obesity. Pt reports working on diet modifications however recently having increased appetite , reports this is related to stress eating d/t an illness in a fam member. regaining lost weight. BS Monitoring Most Recent Diabetes Results: Cholesterol 159 mg/dL (<200) 03/07/24 HDL Cholesterol 54 mg/dL (>40) 03/07/24 Triglycerides 95 mg/dL (<150) 03/07/24 Creatinine 0.85 mg/dL (0.5-1.4) 03/07/24 Blood Urea Nitrogen 16 mg/dL (9-16) 03/07/24 Sodium 142 mmol/L (135-145) 03/07/24 Potassium 3.6 mmol/L (3.3-5.1) 03/07/24 Chloride 104 mmol/L (96-108) 03/07/24 Carbon Dioxide 26 mmol/L (22-29) 03/07/24 Calcium 9.9 mg/dL (8.4-10.2) 03/07/24 AST 21 U/L (5-31) 03/07/24 ALT 27 U/L (0-31) 03/07/24 Total Protein 7.5 g/dL (6.5-8.0) 03/07/24 Albumin 4.1 g/dL (3.5-5.0) 03/07/24 [facility] Medical History (Updated 03/11/24 @ 20:08 by Daria Gambino MD) Morbid obesity Lipoma of right upper extremity Cough LIBRA (obstructive sleep apnea) Obesity (BMI 35.0-39.9 without comorbidity) Elevated random blood glucose level Morbid obesity with BMI of 40.0-44.9, adult Blurred vision Leukocytosis Bunion of great toe of left foot Foot pain, bilateral Obesity Strain of left Achilles tendon, initial encounter Hypertension, essential Uncontrolled hypertension Chronic GERD Surgical History Hx of colonoscopy History of partial hysterectomy Family History Mother Hypotension Father Multiple myeloma Father No problems noted. Mother Alzheimer's disease Dementia Daughter No problems noted. Social History Housing: Apartment Alcohol intake: current Alcohol intake frequency: holidays/special occasions only Alcohol type: beer, wine and hard liquor Patient Tobacco Use Status: Never used Tobacco e-Cigarette/Vaping Use: Never Used Second Hand Smoke Exposure: No service: No Current occupational status: employed Current occupational exposures/hazards: No Cognitive needs: No Hearing needs: No Vision needs: No Assessment & Plan Assessment & Plan (1) Obesity (BMI 35.0-39.9 without comorbidity): Code(s): E66.9 - Obesity, unspecified Category: Medical Plan: Educate Pt on 1800 yady meal plan ? Used wt : 104 kg ( 98.6 kg on 05/10/23) (99.5 07/2023), 99kg (10/2023), 103 (06/13) Est kcal as per MSJ: 2176-250/500 = 1676- 1926 (40% carb, 30% fat/prot) Est fluid needs:2600 ml/d (25 ml/kg bw) Rec fiber: increase to 8-10 g per day and gradually increase to 25 g/d or as tolerated Rec Na: < 2000 mg /d Educate patient on: (R= Reviewed, V = verbalizes understanding N/R= Needs review N/A= not applicable) * Food sources of carbohydrates and serving adequate serving sizes : R V * Difference between complex carbohydrates and simple carbohydrates, role of fiber: R * Differences between fats (MUFA/PUFA/saturated fats, trans fats) and food sources of various fats: R , basic low fat concepts * Food sources of sodium and salt and healthy modifications for heart health and kidney health: R * How to interpret food labels: R * Healthy Plate method concept: R * Physical activity: benefits and precaution: V Patient Instructions: Discussed healthy non food related activities to deal with stress (walking, music, coloring, talking) Drink water , infused water with meals/snacks Continue following healthy plate method Coding Level of Care Code Nutr Indiv Subseq (84712) Diagnoses Obesity (BMI 35.0-39.9 without comorbidity) E66.9 Time Spent (min) 20
== END ==
PROVIDERS: PCP Internal Medicine; Visit Provider Dietitian, Registered
DX: E66.9 Obesity, unspecified (principal)

== ENCOUNTER → 2024-05-21 11:02 | Outpatient (BNVA) | payer OTHER, SELFPAY | PROVIDERS: PCP Internal Medicine; Visit Provider Dietitian, Registered | DX: E66.9 Obesity, unspecified (principal); Z71.3 Dietary counseling and surveillance; Z68.39 Body mass index [BMI] 39.0-39.9, adult | CPT/HCPCS: 97803 ==

== ENCOUNTER 2024-10-01 16:22 | Outpatient (AMB) | payer OTHER, SELFPAY ==
--- NOTE | 2024-10-01 16:25 | MHC.PC.OV ---
Vital Signs 10/01/24 16:38 Height 5 ft 4 in Weight 225 lb BMI 38.6 BP 132/82 Blood Pressure Location Lt brachial Position Sitting Intake Visit Reasons: 6 month f/u Intake Note: Patient here for a 6 month follow up Warehouse Supervisor Required: Yes Warehouse Supervisor Language: Data Technical Lead Name: Daria Gambino MD Information Interpreted: non-clinical & clinical Accompanied by: Self / Same As Patient Allergies lisinopril Adverse Reaction (Intermediate, Verified 10/01/24 16:50) cough nifedipine Adverse Reaction (Intermediate, Verified 10/01/24 16:50) Chest pain/headache Medication List - Last Reconciled 10/01/24 by Daria Gambino MD acetaminophen 500 mg PO BID PRN 90 days [Adult Pull UPs As directed] amlodipine 5 mg PO DAILY 90 days aspirin 81 mg PO DAILY 90 days atenolol 100 mg PO DAILY 90 days [Blood pressure monitor As directed] diclofenac sodium 1% (Arthritis Pain (diclofenac)) 2 grams topical QID PRN 30 days omeprazole 40 mg PO DAILY 90 days polyethylene glycol 3350 (Gavilax) 17 grams PO DAILY PRN semaglutide (weight loss) (Wegovy) 0.25 mg (0.5 mL) subcut QWEEK 4 weeks spironolacton-hydrochlorothiaz 25-25 mg 1 tab PO DAILY 90 days wheat dextrin (Benefiber Healthy Shape) 15 grams PO DAILY 90 days Tobacco use date assessed: 10/01/24 Fall risk assessment: No Falls in past year Last assessed Fall Risk: 10/01/24 Dental Screening Dental Screen Date: 10/01/24 Did you have a dental visit in the last 12 months?: Yes Did you have a dental problem in the last 6 months where you did not have access to dental care?: No Was dental information given to patient?: Patient has dentist HPI HPI Comments History of Present Illness Details The patient is a 64-year-old female presenting with complications arising from a recent fall and concerns related to weight gain. The patient reported slipping in the bathroom one week ago, resulting in trauma to her left wrist, left gluteal area, and left arm. She noted significant swelling initially in her hand, which has since reduced, though persistent pain remains in her left wrist and thumb. She did not experience any head or neck injury during the fall. No imaging has been conducted to date. She describes a noticeable hematoma in the left gluteal area, now decreasing due to topical treatments. Additionally, a lipoma-like mass was observed near her kidney region, which is reportedly superficial. Regarding her history of weight gain, the patient reports increased weight following medication adjustments; Wegovy was previously effective in appetite management which was later discontinued. Her weight management is further complicated by chronic hypertension, managed by Amlodipine and Spironolactone with hydrochlorothiazide. She has noted dietary indiscretions contributing to her current weight status, notably in July. She denies smoking and consumes alcohol occasionally. The patient has experienced adverse reactions to Lisinopril, which induces cough, and Nifedipine, which causes chest pain. She manages chronic constipation with polyethylene glycol. [facility] Medical History (Updated 10/01/24 @ 20:12 by Daira Gambino MD) Morbid obesity Lipoma of right upper extremity Cough LIBRA (obstructive sleep apnea) Obesity (BMI 35.0-39.9 without comorbidity) Elevated random blood glucose level Morbid obesity with BMI of 40.0-44.9, adult Blurred vision Leukocytosis Bunion of great toe of left foot Foot pain, bilateral Obesity Strain of left Achilles tendon, initial encounter Hypertension, essential Uncontrolled hypertension Chronic GERD Surgical History Hx of colonoscopy History of partial hysterectomy Family History Mother Hypotension Father Multiple myeloma Father No problems noted. Mother Alzheimer's disease Dementia Daughter No problems noted. Social History Housing: Apartment Alcohol intake: current Alcohol intake frequency: holidays/special occasions only Alcohol type: beer, wine and hard liquor Patient Tobacco Use Status: Never used Tobacco e-Cigarette/Vaping Use: Never Used Second Hand Smoke Exposure: No service: No Current occupational status: employed Current occupational exposures/hazards: No Cognitive needs: No Hearing needs: No Vision needs: No Questionnaire PHQ-9 Over the last 2 weeks, how often have you been bothered by any of the following problems? 1. Little interest or pleasure in doing things: not at all 2. Feeling down, depressed, or hopeless: not at all 3. Trouble falling or staying asleep, or sleeping too much: not at all 4. Feeling tired or having little energy: not at all 5. Poor appetite or overeating: not at all 6. Feeling bad about yourself - or that you are a failure or have let yourself or your family down: not at all 7. Trouble concentrating on things, such as reading the newspaper or watching television: not at all 8. Moving or speaking so slowly that other people could have noticed. Or the opposite - being so fidgety or restless that you have been moving around a lot more than usual: not at all 9. Thoughts that you would be better off or of hurting yourself in some way: not at all Total score: 0 Depression Screening Interpretation: Negative Depression Screening Done: Yes 70538 - PHQ-9 Billing: Yes Source: Developed by Drs. Luis F Briggs, Brooke Elias, Aydin Brady and colleagues, with an educational guilherme from [employer]. Thrive Questionnaire Date Thrive assessed: 10/01/24 I am a: Patient What is your living situation today?: I have a steady place to live Within the past 12 months, did the food you bought not last and you didn't have the money to get more?: Never true Within the past 12 months, did you worry whether your food would run out before you got money to buy more?: Never true Do you have trouble paying for medicines?: No Do you have trouble getting transportation to medical appointments?: No Do you have trouble paying your heating and electricity bill?: No Do you have trouble taking care of your child, family member or friend?: No Do you have trouble with day-to-day activities such as bathing, preparing meals, shopping, managing finances, etc.?: No Are you currently unemployed and looking for a job?: No Are you interested in more education?: No Please select the resources that you would like help with: None Currently or been in a relationship where the following occur: No concerns reported THRIVE Score: 0 AUDIT C Alcohol Use Questionnaire (AUDIT-C) 1. How often do you have a drink containing alcohol?: Monthly or less 2. How many drinks containing alcohol do you have on a typical day when you are drinking?: 1 or 2 3. How often do you have six or more drinks on one occasion?: Never Total Score: 1 Score Reviewed/Action Taken: No EMILIE-7 AMB Questionnaire EMILIE-7 Date EMILIE - 7 assessed: 10/01/24 Feeling nervous, anxious, or on edge: 0 = Not at all Not being able to stop or control worryin = Not at all Worrying too much about different things: 0 = Not at all Trouble relaxin = Not at all Being so restless that it is hard to sit still: 0 = Not at all Becoming easily annoyed or irritable: 0 = Not at all Feeling afraid as if something awful might happen: 0 = Not at all Total EMILIE-7 score (0-4 normal; 5-9 mild; 10-14 moderate; 15-21 severe): 0 Source: Developed by Drs. Luis F Briggs, Brooke Elias, Aydin Brady and colleagues, with an educational guilherme from [employer]. EMILIE-7 Assessment Billing EMILIE-7 Assessment Tool: EMILIE-7 Assessment 03009 Review of Systems Const All systems reviewed & are unremarkable except as noted in HPI and below Card Denies chest pain at rest, Denies chest pain with activity, Denies edema, Denies irregular heart rhythm, Denies claudication, Denies dyspnea, Denies dyspnea on exertion, Denies orthopnea, Denies paroxysmal nocturnal dyspnea and Denies slow heart rate Resp Denies cough, Denies dyspnea and Denies dyspnea on exertion GI Denies abdominal pain, Denies change in bowel habits, Denies excessive flatus, Denies nausea and Denies vomiting Physical exam (Primary Care) Vital Signs: Last Vital Signs BP 132/82 10/01/24 16:38 BMI result Body Mass Index 38.6 Tobacco/Smoking Status: Tobacco use Status Tobacco use date assessed 10/01/24 10/01/24 16:43 Patient Tobacco Use Status Never used Tobacco 10/01/24 16:26 e-Cigarette/Vaping Use Never Used 10/01/24 16:26 PHQ-9: PHQ-9 Score PHQ-9: Total score 0 10/01/24 17:33 Depression Screening Interpretation: Negative Thrive Assessment: Date of Thrive Assessment Date Thrive assessed 10/01/24 10/01/24 16:43 Currently or been in a relationship where the following occur: No concerns reported Resp Effort & Inspection: normal respiratory effort Auscultation: clear to auscultation bilaterally Cardio Jugular venous distension: no JVD Rate: regular rate Rhythm: regular rhythm Heart sounds: S1 normal heart sound present and S2 normal heart sound present Extrem General: Yes full ROM Coding Level of Care Code Est Pt Level 4 (53039) Complex EM visit Add On G2211 Diagnoses Left wrist pain M25.532 Lumbar degenerative disc disease M51.369 Hypertension, essential I10 Obesity E66.9 Additional Codes EMILIE-7 Assessment Billing - EMILIE-7 Assessment Tool: EMILIE-7 Assessment 40169 ([id number]) PHQ-9 - 41427 - PHQ-9 Billing: Yes ([id number]) Time Spent (min) 23 Assessment & Plan Assessment & Plan (1) Left wrist pain: Code(s): M25.532 - Pain in left wrist Category: Medical (2) Lumbar degenerative disc disease: Code(s): M51.369 - Other intervertebral disc degeneration, lumbar region without mention of lumbar back pain or lower extremity pain Category: Medical (3) Hypertension, essential: Code(s): I10 - Essential (primary) hypertension Category: Medical (4) Obesity: Comment: Weight management was discussed with the patient, healthy eating habits Reinforced Code(s): E66.9 - Obesity, unspecified Category: Medical Plan - Obtain imaging of the left wrist and left gluteal area to assess the extent of injury. - Consider management for chronic hypertension with the current regimen including Amlodipine and Spironolactone with hydrochlorothiazide. - Evaluate alternative medications for weight management due to insurance denial of Wegovy. - Prescribe Diclofenac topical gel for pain management in musculoskeletal injuries. - Continue polyethylene glycol for constipation management. Patient was informed and verbally consented to the use of an ambient scribe for clinic note documentation during this visit. I discussed with the patient the course of action for addressing her injuries resulting from the fall, highlighting the necessity of imaging studies to evaluate the left wrist and gluteal area. We reviewed potential alternatives for managing hypertension considering her reactions to previous medications. I advised that her insurance likely would not cover Wegovy, a prior effective weight management medication, thus necessitating nutritional counseling and potential alternative treatments. We talked about continuing existing medication for constipation. Diclofenac topical gel was recommended for pain relief in the left wrist and gluteal region. I suggested considering weight management counseling. Orders: Orders XR wrist LT 2V Today M25.532 - Pain in left wrist XR lumbar spine 2-3V Today M51.369 - Other intervertebral disc degeneration, lumbar region without mention of lumbar back pain or lower extremity pain Medications: New Grab bar As directed 1 ea 0RF M51.369 - Other intervertebral disc degeneration, lumbar region without mention of lumbar back pain or lower extremity pain Discontinued semaglutide (weight loss) (Caprice) administer weeks 1 through 4 of therapy Discontinued Reason: Patient Completed Course 0.25 mg (0.5 mL) subcut QWEEK 4 weeks 2 mL 0RF E66.9 - Obesity, unspecified, Z68.38 - Body mass index [BMI] 38.0-38.9, adult Patient Instructions: - Follow up for imaging of the left wrist and gluteal area. - Apply Diclofenac topical gel to injured areas as directed. - Adhere to current hypertension medication regimen unless advised otherwise. - Continue using polyethylene glycol for constipation management. - Consider nutritional counseling for weight management. - Monitor for any changes in symptoms and report increases in pain or swelling.
[2024-10-01 16:38] VITALS: BP 132/82; BMI 38.6
== END 2024-10-01 17:04 | disposition home or self-care (01) ==
PROVIDERS: PCP Internal Medicine; Visit Provider Internal Medicine
DX: M25.532 Pain in left wrist (principal); M51.369 Other intervertebral disc degeneration, lumbar region without mention of lumbar back pain or lower extremity pain; E66.9 Obesity, unspecified; Z68.38 Body mass index [BMI] 38.0-38.9, adult; I10 Essential (primary) hypertension

== ENCOUNTER → 2024-10-01 16:22 | Outpatient (BNVA) | payer OTHER, SELFPAY | PROVIDERS: PCP Internal Medicine; Visit Provider Internal Medicine | DX: M25.532 Pain in left wrist (principal); M51.369 Other intervertebral disc degeneration, lumbar region without mention of lumbar back pain or lower extremity pain; I10 Essential (primary) hypertension; E66.9 Obesity, unspecified | CPT/HCPCS: 96127; 99212 ==

== ENCOUNTER 2024-10-02 09:46 | Outpatient (REF) | payer OTHER, SELFPAY ==
--- NOTE | ~2024-10-02 | XR_ITS ---
CLINICAL HISTORY: M51.369 - Other intervertebral disc degeneration, lumbar region without ... 3 views lumbar spine Comparison: None Findings: No acute compression fractures. Mild degenerative facet arthropathy L4-5. No spondylolisthesis. Disc spaces are maintained. Pedicles and transverse processes intact. Lordotic curvature is preserved. Normal bone mineralization. Normal soft tissues. Sacroiliac joints unremarkable. Impression: 1. Degenerative spondylosis without listhesis L4-5. This document has been electronically signed by: Thang Marlow MD on 10/02/2024 12:23:44
--- NOTE | ~2024-10-02 | XR_ITS ---
CLINICAL HISTORY: M25.532 - Pain in left wrist 4 views left wrist Comparison: None Findings: Nondisplaced intra-articular fracture distal radius. Distal radiocarpal joint intact. Radial and ulnar styloid preserved. Mild degenerative changes involving the 1st carpometacarpal joint. Bone mineralization and soft tissues within normal limits. No radiopaque foreign body. Impression: 1. Nondisplaced intra-articular fracture distal radius. This document has been electronically signed by: Thang Marlow MD on 10/02/2024 12:14:59
[2024-10-02 11:15] LABS: Alanine Aminotransferase 28 U/L (0-31); Albumin Level 3.9 g/dL (3.5-5.0); Alkaline Phosphatase 95 U/L (39-117); Anion Gap 10 (12-20); Aspartate Amino Transferase 24 U/L (5-31); Bilirubin Total 0.6 mg/dL (0.0-1.0); Blood Urea Nitrogen 20 mg/dL (9-16); Calcium 9.2 mg/dL (8.4-10.2); Carbon Dioxide 24 mmol/L (22-29); Chloride 110 mmol/L (96-108); Cholesterol 136 mg/dL (<200); Estimated Glomerular Filt Rate > 60; Glucose Fasting 116 mg/dL (60-99); HDL Cholesterol 51 mg/dL (>40); LDL Cholesterol Calculated 70 mg/dL (<100); Potassium 3.7 mmol/L (3.3-5.1); Sodium 140 mmol/L (135-145); Total Protein 7.9 g/dL (6.5-8.0); Triglycerides 78 mg/dL (<150)
--- OUTSIDE RECORDS SUMMARY | 2024-10-02 11:21 | XMS_ITS | Encounter Summary ---
Author Organization [employer] [facility] Address [address] [place] [id number] Care Team Providers Care Talent Assistant Name Role Phone Unavailable Primary Care Provider Unavailabl e Encounter Details Date Type Department Care Team (Late st Contact Info) Description 02/15/2023 Orders Only [facility] ADULT DENTAL [address] [place] [address] Betty Roche DDS [address] [place] [address] Social History Tobacco Use Types Packs/Day Years Used Date Smoking Tobacco: Never Assessed Comments Unknown Sex and Gender Information Value Date Recorded Sex Assigned at Female 06/20/2022 10:34 AM EDT Legal Sex Female 10:34 AM EDT Gender Identity Female 06/20/2022 10:34 AM EDT Sexual Orientation Straight 06/20/2022 10 :34 AM EDT documented as of this encounter Plan of Treatment Upcoming Encounters Date Type Department Care Team (Late st Contact Info) Description 03/25/2025 10:00 AM EDT Office Visit [facility] ADULT DENTAL [address] [place] [address] Jayda Vazquez documented as of this encounter Visit Diagnoses Not on filedocumented in this encounter
--- OUTSIDE RECORDS SUMMARY | 2024-10-02 11:21 | XMS_ITS | Encounter Summary ---
Author Organization [employer] [facility] Address [address] [place] [address] [facility] [place] [address] Care Team Providers Care Drug Clerk Name Role Phone Unavailable Primary Care Provider Unavailabl e Reason for Visit * Reason Comments Routine Cleaning Dental Exam Encounter Details Date Type Department Care Team ([facility] st Contact Info) Description 09/17/2024 9:00 AM EST Office Visit [facility] ADULT DENTAL [address] [place] [address] Jayda Vazquez Dental plaque (Primary Dx); Dental calculus; Encounter for dental examination Social History Tobacco Use Types Packs/Day Years Used Date Smoking Tobacco: Never Passive Smoke Exposure: Never Smokeless Tobacco: Never Comments Unknown Sex and Gender Information Value Date Recorded Sex Assigned at Female 06/20/2022 10:34 AM EDT Legal Sex Female 10:34 AM EDT Gender Identity Female 06/20/2022 10:34 AM EDT Sexual Orientation Straight 06/20/2022 10 :34 AM EDT documented as of this encounter Last Filed Vital Signs Vital Sign Reading Time Taken Comments Blood Pressure 138/88 09/17/2024 9:13 AM EST Pulse - - Temperature - - Respiratory Rate - - Oxygen Saturation - - Inhaled Oxygen Concentration - - Weight - - Height - - Body Mass Index - - documented in this encounter Progress Notes * Jayda Vazquez - 09/17/2024 9:00 AM EST Patient ID: Sada Moore is a 64 y.o. female. Time Out: Timeout Date: 09/17/24, Timeout Time: 914 (prophy and exam adult dental) Location: [facility] Tooth: Maxilla and Mandible Procedure: Exam, X-rays, and Prophylaxis Verified the above with patient, family practice physician assistant, and provider. Confirmed via patient's chart, intraorally and by radiographs. Inventory And Pricing Associate: not applicable Medical Hx: Vitals: Blood pressure 138/88. Medications, Med Hx reviewed with patient and updated in chart. Treatment Provided Dental procedures in this visit D1110 - PROPHYLAXIS - ADULT (Completed) Service provider: Jayda Vazquez Billlinda provider: Betty Roche DDS D9450 - ADJUNCTIVE GENERAL SERVICES - PROFESSIONAL VISITS - CASE PRESENTATION, SUBSEQUENT TO DETAILED AND EXTENSIVE TREATMENT PLANNING (Completed) Service provider: Jayda Vazquez Billing provider: Betty Roche DDS D1330 - ORAL HYGIENE INSTRUCTIONS (Completed) Service provider: Jayda Vazquez Billing provider: Betty Roche DDS D0274 - BITEWINGS - 4 RADIOGRAPHIC IMAGES (Completed) Service provider: Jayda Vazquez Billing provider: Betty Roche DDS D0220 - INTRAORAL - PERIAPICAL FIRST RADIOGRAPHIC IMAGE (Completed) Service provider: Jayda Vazquez Billing provider: Betty Roche DDS D0230 - INTRAORAL - PERIAPICAL EACH ADDITIONAL RADIOGRAPHIC IMAGE (Completed) Service provider: Jayda Vazquez Billing provider: Betty Roche DDS D0230 - INTRAORAL - PERIAPICAL EACH ADDITIONAL RADIOGRAPHIC IMAGE (Completed) Service provider: Jayda Vazquez Billing provider: Betty Roche DDS Instruments Used: Ultrasonic Scalers, Hand Scalers, and Prophy angle Fluoride: N/A Oral Cancer Screening: No lesions Head/Neck Exam: No Lesions Calculus: Light and Generalized Plaque: Light and Generalized Stain: Light and Generalized Bleeding: Light and Localized upon scaling Gingiva: Healthy OH: Fair Perio Chart: Completed - generalized 2-4 [address] Exam with Dr. Pierre - no decay noted Oral hygiene instructions provided to patient including brushing technique and flossing. Recommendations: Claremont two times daily, modified hernandez technique, Floss daily, Electric toothbrush, Soft bristle toothbrush, Claremont Tongue Recall Frequency: 6 mo NV: 6mrc, exam Hygienist: Jayda Vazquez RDH Cosigned by Betty Roche DDS at 09/17/2024 11:26 AM EST Associated attestation - Betty Roche DDS - 09/17/2024 11:26 AM EST I have reviewed the documentation and dental procedures made by the rendering provider, Jayda Vazquez RDH , and approve their chart entries for this visit. Betty Roche DDS * Betty Roche DDS - 09/17/2024 9:00 AM EST Dental procedures in this visit D1110 - PROPHYLAXIS - ADULT (Completed) Service provider: Jayda Vazquez Billing provider: Betty Roche DDS D9450 - ADJUNCTIVE GENERAL SERVICES - PROFESSIONAL VISITS - CASE PRESENTATION, SUBSEQUENT TO DETAILED AND EXTENSIVE TREATMENT PLANNING (Completed) Service provider: Jayda Vazquez Billing provider: Betty Roche DDS D1330 - ORAL HYGIENE INSTRUCTIONS (Completed) Service provider: Jayda Vazquez Billing provider: Betty Roche DDS D0274 - BITEWINGS - 4 RADIOGRAPHIC IMAGES (Completed) Service provider: Jayda Vazquez Billing provider: Betty Roche DDS D0220 - INTRAORAL - PERIAPICAL FIRST RADIOGRAPHIC IMAGE (Completed) Service provider: Jayda Vazquez Billing provider: Betty Roche DDS D0230 - INTRAORAL - PERIAPICAL EACH ADDITIONAL RADIOGRAPHIC IMAGE (Completed) Service provider: Jayda Vazquez Billing provider: Betty Roche DDS D0230 - INTRAORAL - PERIAPICAL EACH ADDITIONAL RADIOGRAPHIC IMAGE (Completed) Service provider: Jayda Vazquez Billing provider: Betty Roche DDS D0120 - PERIODIC ORAL EVALUATION - ESTABLISHED PATIENT (Completed) Service provider: Betty Roche DDS Billing provider: Betty Roche DDS D0180 - COMPREHENSIVE PERIODONTAL EVALUATION - NEW OR ESTABLISHED PATIENT (Completed) Service provider: Betty Roche DDS Billing provider: Betty Roche DDS Patient ID: Sada Moore is a 64 y.o. female. Time Out: Timeout Date: 09/17/24, Timeout Time: 914 (prophy and exam adult dental) Location: [facility] Tooth: Maxilla and Mandible Procedure: Exam, X-rays, and Prophylaxis Verified the above with patient, family practice physician assistant, and provider. Confirmed via patient's chart, intraorally and by radiographs. Inventory And Pricing Associate: not applicable Chief Complaint Patient presents with Routine Cleaning Dental Exam Medical Hx: Vitals: Blood pressure 138/88. Past Medical History: Diagnosis Date GERD (gastroesophageal reflux disease) Hypertension Medications: Outpatient Encounter Medications as of 09/17/2024 Medication Sig Dispense Refill acetaminophen (Tylenol) 500 MG tablet Take 500 mg by mouth if needed in the morning and at bedtime. amLODIPine (Norvasc) 5 MG tablet Take 5 mg by mouth in the morning. Aspirin Low Dose 81 MG chewable tablet Chew 81 mg in the morning. atenolol (Tenormin) 100 MG tablet Take 100 mg by mouth in the morning. furosemide (Lasix) 20 MG tablet Take 20 mg by mouth in the morning. GaviLyte-G 236 g solution PLEASE SEE ATTACHED FOR DETAILED DIRECTIONS omeprazole (PriLOSEC) [address] capsule Take 40 mg by mouth in the morning. spironolactone-hydroCHLOROthiazide (Aldactazide) 25-25 MG tablet Take 1 tablet by mouth in the morning. No facility-administered encounter medications on file as of 09/17/2024. Objective HPI Soft Tissue Exam No findings documented this visit Head and Neck Exam: Lymph Nodes, Lips, Palate, Buccal Mucosa, Floor of Mouth, Tongue, Tonsils, Alveolar Ridges, Oropharynx, Salivary Ducts, and Vestibules - no significant findings observed OCS: negative Dental Exam Radiographic Interpretation: Associated radiographs for today's visit were reviewed and finding(s) were discussed with the patient. Findings include: no caries, pockets with recession- 4 mm, slight BOP UL side Hard Tissue Exam: No decay Perio Dx: fair OH Reference tooth chart for additional findings. Oral Cancer Risk: Low Risk Oral Hygiene Instructions: Claremont two times daily, modified hernandez technique, Floss daily, Soft bristle toothbrush, [place]mont Tongue Caries Risk Assessment: Low- no risk factor Assessment/Plan 6 mo periodic exam PAD Patient tolerated procedure well, all questions answered and expressed understanding. Dismissed in good condition. NV: 6 Mo periodic exam PAD Tailer Out: Jayda Vazquez Dentist: Betty Roche DDS documented in this encounter Plan of Treatment Upcoming Encounters Date Type Department Care Team (Late st Contact Info) Description 03/25/2025 10:00 AM EDT Office Visit [facility] ADULT DENTAL [address] [place] [address] Jayda Vazquez Scheduled Orders Name Type Priority Associated Diagnoses Orde r Schedule PROPHYLAXIS - ADULT Dental Routine 1 Occ urrences starting 09/17/2024 PERIODIC ORAL EVALUATION - ESTABLISHED PATIENT Dental Routine 1 Occurren nikhil starting 09/17/2024 documented as of this encounter Procedures Procedure Name Priority Date/Time Associated Diagnosis Comments PROPHYLAXIS - ADULT Routine 09/17/2024 9 :00 AM EST Dental plaque Dental calculus PERIODIC ORAL EVALUATION - ESTABLISHED PATIENT Routine 09/17/2024 9:00 AM EST Dental plaque Dental calculus Encounter for dental examination ORAL HYGIENE INSTRUCTIONS Routine 2024 9:00 AM EST Dental plaque Dental calculus INTRAORAL - PERIAPICAL FIRST RADIOGRAPHIC IMAGE Routine 09/17/2024 9:00 AM EST INTRAORAL - PERIAPICAL EACH ADDITIONAL RADIOGRAPHIC IMAGE Routine 09/17/2024 9:00 AM EST INTRAORAL - PERIAPICAL EACH ADDITIONAL RADIOGRAPHIC IMAGE Routine 09/17/2024 9:00 AM EST COMPREHENSIVE PERIODONTAL EVALUATION - NEW OR ESTABLISHED PATIENT Routine 09/17/2024 9:00 AM EST Dental plaque Dental calculus Encounter for dental examination ADJUNCTIVE GENERAL SERVICES - PROFESSIONAL VISITS - CASE PRESENTATION, SUBSEQUENT TO DETAILED AND EXTENSIVE TREATMENT PLANNING Routine 09/17/2024 9:00 AM EST BITEWINGS - 4 RADIOGRAPHIC IMAGES Routine 09/17/2024 9:00 AM EST documented in this encounter Visit Diagnoses Diagnosis Dental plaque- Primary Accretions on teeth Dental calculus Accretions on teeth Encounter for dental examination documented in this encounter
--- OUTSIDE RECORDS SUMMARY | 2024-10-02 11:21 | XMS_ITS | Encounter Summary ---
Author Organization [email or web address] [facility] Address [address] [place] [address] Care Team Providers Care Concrete Stone Finisher Name Role Phone Unavailable Primary Care Provider Unavailabl e Encounter Details Date Type Department Care Team (Latest Contact Info) Description 10/28/2021 Abstract [facility] CONVERSIONS Dental, Provider, DDS Social History Tobacco Use Types Packs/Day Years [...] Description 03/25/2025 10:00 AM EDT Office Visit [facility] ADULT DENTAL [address] [place] [address] Jayda Vazquez documented as of this encounter Visit Diagnoses Not on filedocumented in this encounter
--- OUTSIDE RECORDS SUMMARY | 2024-10-02 11:21 | XMS_ITS | Encounter Summary ---
Author Organization [employer] [facility] Address [address] [place] [address] Care Team Providers Care Dredge Mate Name Role Phone Unavailable Primary Care Provider Unavailabl e Encounter Details Date Type Department Care Team (Latest Contact Info) Description 03/05/2019 Abstract [facility] CONVERSIONS Dental, Provider, DDS Social History Tobacco [...] Description 03/25/2025 10:00 AM EDT Office Visit [facility] ADULT DENTAL [address] [place] [address] Jayda Vazquez documented as of this encounter Visit Diagnoses Not on filedocumented in this encounter
--- OUTSIDE RECORDS SUMMARY | 2024-10-02 11:21 | XMS_ITS | Clinical Summary ---
Author Organization [employer] Address [address] [place] [address] Care Team Providers Care Insurance Investigator Name Role Phone Unavailable Primary Care Provider Unavailabl e Allergies Active Allergy Reactions Criticality Noted Date Comments Lisinopril Cough 02/19/2024 Medications acetaminophen (Tylenol) 500 MG tablet Take 500 mg by mouth if needed in the morning and at bedtime. 3 Active Aspirin Low Dose 81 MG chewable tablet Chew 81 mg in the morning. 3 Active amLODIPine (Norvasc) 5 MG tablet Take 5 mg by mouth in the morning. 3 Active atenolol (Tenormin) 100 MG tablet Take 100 mg by mouth in the morning. 3 Active furosemide (Lasix) 20 MG tablet Take 20 mg by mouth in the morning. 3 Active omeprazole (PriLOSEC) [address] capsule Take 40 mg by mouth in the morning. 3 Active GaviLyte-G 236 g solution PLEASE SEE ATTACHED FOR DETAILED DIRECTIONS 3 Active spironolactone- hydroCHLOROthia zide (Aldactazide) 25-25 MG tablet Take 1 tablet by mouth in the morning. 3 Active Active Problems Problem Noted Date Diagnosed Date Missing teeth, acquired 07/06/2023 Encounters Date Type Department Care Team Description 09/17/2024 9:00 AM EST Office Visit [facility] [address] [place] [address] Jayda Vazquez Dental plaque (Primary Dx); Dental calculus; Encounter for dental examination from Last 3 Months Social History Tobacco Use Types Packs/Day Years Used Date Smoking Tobacco: Never Passive Smoke Exposure: Never Smokeless Tobacco: Never Tobacco Cessation:Counseling Given: Not Answered Comments Unknown Sex and Gender Information Value Date Recorded Sex Assigned at Female 06/20/2022 10:34 AM EDT Legal Sex Female 10:34 AM EDT Gender Identity Female 06/20/2022 10:34 AM EDT Sexual Orientation Straight 06/20/2022 10 :34 AM EDT Last Filed Vital Signs Vital Sign Reading Time Taken Comments Blood Pressure 138/88 09/17/2024 9:13 AM EST Pulse 90 07/06/2023 9:15 AM EST Temperature - - Respiratory Rate - - Oxygen Saturation - - Inhaled Oxygen Concentration - - Weight - - Height - - Body Mass Index - - Plan of Treatment Upcoming Encounters Date Type Department Care Team (Late st Contact Info) Description 03/25/2025 10:00 AM EDT Office Visit [facility] [address] [place] [address] Jayda Vazquez Health Maintenance Due Date Last Done Comments CT Colonography 1960 Colonoscopy 1960 Colorectal Cancer Screening 1960 Depression Screening 1960 FIT DNA/Cologuard 1960 FIT 1960 FOBT 1960 HIV Screening 1960 SDOH Screening 1960 Sigmoidoscopy 1960 Alcohol/Substance Use Screening 1972 Hepatitis C Screening 02/19/1978 Pap Smear 02/19/1981 Cervical Cancer Screening 02/19/1990 HPV/Cotest 02/19/1990 Mammogram 2000 Pneumococcal Vaccine: 50+ Years (1 of 1 - PCV) 02/19/2010 Zoster Vaccines (1 of 2) 02/19/2010 COVID-19 Vaccine ( season) 2024 08/06/2021, 11/26/2020, 11/05/2020 Influenza Vaccine (#1) 2024 Dental Oral Exam 03/18/2025 09/17/2024, 06/2024, 02/22/2023, Additional history exists Dental Prophylaxis 03/18/2025 09/17/2024, 0 2024, 07/06/2023, Additional history exists Tobacco Screening 09/17/2025 09/17/2024 Dental X-Ray: Bitewings 09/18/2025 09/17/19 25, 11/30/2023, 02/22/2023, Additional history exists Dental X-Ray: Full Mouth 11/30/2026 024, 10/28/2021, 06/03/2020, Additional history exists DTaP/Tdap/Td Vaccines (2 - Td or Tdap) 03/09/2032 03/09/2022 RSV Patients and Patients Aged 60 years or older (1 - 1-dose 75+ series) 02/19/2035 HIB Vaccines Aged Out No longer eligi ble based on patient's age to complete this topic HPV Vaccines Aged Out No longer eligi ble based on patient's age to complete this topic Hepatitis A Vaccines Aged Out No long er eligible based on patient's age to complete this topic Hepatitis B Vaccines Aged Out No long er eligible based on patient's age to complete this topic IPV Vaccines Aged Out No longer eligi ble based on patient's age to complete this topic Meningococcal Vaccine Aged Out No cruzito milind eligible based on patient's age to complete this topic RSV under 20 months Aged Out No longe r eligible based on patient's age to complete this topic Rotavirus Vaccines Aged Out No longer eligible based on patient's age to complete this topic Procedures Procedure Name Priority Date/Time Associated Diagnosis Comments COMPREHENSIVE PERIODONTAL EVALUATION - NEW OR ESTABLISHED PATIENT Routine 09/17/2024 9:00 AM EST Dental plaque Dental calculus Encounter for dental examination PERIODIC ORAL EVALUATION - ESTABLISHED PATIENT Routine 09/17/2024 9:00 AM EST Dental plaque Dental calculus Encounter for dental examination INTRAORAL - PERIAPICAL EACH ADDITIONAL RADIOGRAPHIC IMAGE Routine 09/17/2024 9:00 AM EST INTRAORAL - PERIAPICAL EACH ADDITIONAL RADIOGRAPHIC IMAGE Routine 09/17/2024 9:00 AM EST INTRAORAL - PERIAPICAL FIRST RADIOGRAPHIC IMAGE Routine 09/17/2024 9:00 AM EST BITEWINGS - 4 RADIOGRAPHIC IMAGES Routine 09/17/2024 9:00 AM EST ORAL HYGIENE INSTRUCTIONS Routine 2024 9:00 AM EST Dental plaque Dental calculus ADJUNCTIVE GENERAL SERVICES - PROFESSIONAL VISITS - CASE PRESENTATION, SUBSEQUENT TO DETAILED AND EXTENSIVE TREATMENT PLANNING Routine 09/17/2024 9:00 AM EST PROPHYLAXIS - ADULT Routine 09/17/2024 9 :00 AM EST Dental plaque Dental calculus DIAGNOSTIC - DIAGNOSTIC IMAGING - INTRAORAL - COMPREHENSIVE SERIES OF RADIOGRAPHIC IMAGES Routine 11/30/2023 9:30 AM EDT Encounter for dental examination from Last 3 Months or Most Recently Relevant to Health Maintenance Insurance [facility] MED[facility] STAND ADULT
--- OUTSIDE RECORDS SUMMARY | 2024-10-02 11:21 | XMS_ITS | Encounter Summary ---
Author Organization [employer] [facility] Address [address] [place] [address] Care Team Providers Care Day Worker Name Role Phone Unavailable Primary Care Provider Unavailabl e Encounter Details Date Type Department Care Team (Latest Contact Info) Description 05/27/2020 Abstract [facility] CONVERSIONS Dental, Provider, DDS Social History [...] 10:00 AM EDT Office Visit [facility] ADULT DENTAL [address] [place] [address] Jayda Vazquez documented as of this encounter Visit Diagnoses Not on filedocumented in this encounter
== END 2024-10-02 09:47 | disposition home or self-care (01) ==
LOC: HO.LAB 09:46
PROVIDERS: PCP Internal Medicine; Visit Provider Internal Medicine
DX: Z00.00 Encounter for general adult medical examination without abnormal findings (principal); M25.532 Pain in left wrist; M51.369 Other intervertebral disc degeneration, lumbar region without mention of lumbar back pain or lower extremity pain; I10 Essential (primary) hypertension
CPT/HCPCS: 36415; 72100; 73110; 80053; 80061

== ENCOUNTER → 2024-10-02 10:11 | Outpatient (BNV) | payer OTHER, SELFPAY | PROVIDERS: PCP Internal Medicine; Visit Provider Radiology Diagnostic Radiology | DX: M51.369 Other intervertebral disc degeneration, lumbar region without mention of lumbar back pain or lower extremity pain (principal); S52.572D Other intraarticular fracture of lower end of left radius, subsequent encounter for closed fracture with routine healing | CPT/HCPCS: 72100; 73110 ==

== ENCOUNTER 2024-10-11 09:42 | Outpatient (REF) | payer OTHER, SELFPAY ==
--- NOTE | ~2024-10-11 | XR_ITS ---
EXAMINATION: XR WRIST, LEFT CLINICAL INFORMATION: M25.532 - Pain in left wrist COMPARISON: None available. TECHNIQUE: PA, lateral, and oblique views of the left wrist. FINDINGS: Redemonstration of a nondisplaced comminuted intra-articular fracture of the distal radius. No change in anatomic alignment. Fracture lines are slightly less distinct, with no definite bridging bony callus evident although there is an indication of early healing. There is no articular step-off. Old fracture of the distal ulnar diaphysis. Mild degenerative changes in the DRUJ, and moderate changes in the first CMC joint. Soft tissue swelling has improved. XR/XR wrist LT min 3V IMPRESSION: No significant interval change in alignment of nondisplaced intra-articular comminuted distal radial fracture. Possible early healing noted. Electronically signed by: Jose Alejandro Reno MD 10/11/2024 12:32 PM MADELYN
--- OUTSIDE RECORDS SUMMARY | 2024-10-15 13:18 | XMS_ITS | Encounter Summary ---
Author Organization [facility] Address [address] [place] [address] Care Team Providers Care Bellows Filler Name Role Phone Unavailable Primary Care Provider Unavailabl e Encounter Details Date Type Department Care Team (Late st Contact Info) Description 02/15/2023 Orders Only [facility] ADULT DENT[facility] [address] [place] [address] Betty Roche DDS [address] [place] [address] Social History Tobacco Use Types Packs/Day Years [...] Description 03/25/2025 10:00 AM EDT Office Visit [facility] ADULT D[facility] [address] [place] [address] Jayda Vazquez documented as of this encounter Visit Diagnoses Not on filedocumented in this encounter
--- OUTSIDE RECORDS SUMMARY | 2024-10-15 13:18 | XMS_ITS | Encounter Summary ---
Author Organization [employer] [facility] Address [address] [place] [address] Care Team Providers Care Slip Cover Sewer Name Role Phone Unavailable Primary Care Provider Unavailabl e Encounter Details Date Type Department Care Team (Latest Contact Info) Description 03/05/2019 Abstract [facility] CONVERSIONS Dental, Provider, DDS Social History [...] Description 03/25/2025 10:00 AM EDT Office Visit [facility] ADULT DENTAL [address] [place] [address] Jayda Vazquez documented as of this encounter Visit Diagnoses Not on filedocumented in this encounter
--- OUTSIDE RECORDS SUMMARY | 2024-10-15 13:18 | XMS_ITS | Encounter Summary ---
Author Organization [employer] [facility] Address [address] [place] [address] Care Team Providers Care Photo Print Specialist Name Role Phone Unavailable Primary Care Provider Unavailabl e Encounter Details Date Type Department Care Team (Latest Contact Info) Description 05/27/2020 Abstract [facility] CONVERSIONS Dental, Provider, DDS Social History [...] Description 03/25/2025 10:00 AM EDT Office Visit [facility] ADULT DENT[facility] [address] [place] [address] Jayda Vazquez documented as of this encounter Visit Diagnoses Not on filedocumented in this encounter
--- OUTSIDE RECORDS SUMMARY | 2024-10-15 13:18 | XMS_ITS | Clinical Summary ---
Author Organization [employer] Address [address] [place] [address] Care Team Providers Care Mechanic General Operational Test Name Role Phone Unavailable Primary Care Provider [...] 9:00 AM EST Office Visit [facility] [address] [place] [address] Jayda Vazquez Dental plaque (Primary Dx); Dental [...] 10:00 AM EDT Office Visit [facility] [address] [place] [address] Jayda Vazquez Health Maintenance Due Date Last [...] ID:Not on file Type:Not on file Address: [place] [phone]
--- OUTSIDE RECORDS SUMMARY | 2024-10-15 13:18 | XMS_ITS | Encounter Summary ---
Author Organization [employer] [facility] Address [address] [place] [address] Care Team Providers Care Ultimate Hoops Scoreboard Operator Name Role Phone Unavailable Primary Care Provider Unavailabl e Encounter Details Date Type Department Care Team (Latest Contact Info) Description 10/28/2021 Abstract [facility] CONVERSIONS Dental, Provider, DDS Social History [...] Description 03/25/2025 10:00 AM EDT Office Visit [facility]ULT [facility] [address] [place] [address] Jayda Vazquez documented as of this encounter Visit Diagnoses Not on filedocumented in this encounter
--- OUTSIDE RECORDS SUMMARY | 2024-10-15 13:18 | XMS_ITS | Encounter Summary ---
Author Organization [employer] [facility] Address [address] [place] [address] [facility] [place] [address] Care Team Providers Care Microsoft Bi Developer Name Role Phone Unavailable Primary Care Provider Unavailabl e Reason for Visit * Reason Comments Routine Cleaning Dental Exam Encounter Details Date Type Department Care Team ([facility] st Contact Info) Description 09/17/2024 9:00 AM EST Office Visit [facility] [address] [place] [address] Jayda Vazquez Dental plaque (Primary Dx); Dental [...] and Prophylaxis Verified the above with patient, district administrative assistant, and provider. Confirmed via patient's chart, intraorally and by radiographs. Solar Sales Representative: not applicable Medical Hx: Vitals: Blood pressure [...] patient including brushing technique and flossing. Recommendations: Bolton two times daily, modified hernandez technique, Floss daily, Electric toothbrush, Soft bristle toothbrush, Bolton Tongue Recall Frequency: 6 mo NV: 6mrc, [...] 914 (prophy and exam adult dental) Location: [facility] Tooth: Maxilla and Mandible Procedure: Exam, X-rays, and Prophylaxis Verified the above with patient, district administrative assistant, and provider. Confirmed via patient's chart, intraorally and by radiographs. Solar Sales Representative: not applicable Chief Complaint Patient presents with [...] Cancer Risk: Low Risk Oral Hygiene Instructions: Bolton two times daily, modified hernandez technique, Floss daily, Soft bristle toothbrush, Bolton Tongue Caries Risk Assessment: Low- no risk factor Assessment/Plan 6 mo periodic exam PAD Patient tolerated procedure well, all questions answered and expressed understanding. Dismissed in good condition. NV: 6 Mo periodic exam PAD Bilingual Teacher: Jayda Vazquez Dentist: Betty Roche DDS documented in this encounter Plan of Treatment Upcoming Encounters Date Type Department Care Team (Late st Contact Info) Description 03/25/2025 10:00 AM EDT Office Visit [facility] [address] [place] [address] Jayda Vazquez Scheduled Orders Name Type Priority [...]
== END 2024-10-11 09:43 | disposition home or self-care (01) ==
LOC: HO.HOSX 09:42
PROVIDERS: Visit Provider Orthopaedic Surgery
DX: M25.532 Pain in left wrist (principal); S52.502A Unspecified fracture of the lower end of left radius, initial encounter for closed fracture
CPT/HCPCS: 25600; 73110; 99202

== ENCOUNTER 2024-10-11 09:53 | Outpatient (AMB) | payer OTHER, SELFPAY ==
--- NOTE | 2024-10-11 10:14 | MHC.OFFVIS ---
Vital Signs 10/11/24 10:22 Height 5 ft 4 in Weight 225 lb BMI 38.6 Intake Visit Reasons: FC- Left wrist fx, s/p fall 2-3 wks ago Intake Note: Sada is a 64 year old right hand dominant female who presents today for a new patient evaluation of left wrist fx about 2 weeks ago. Patient reports that she slipped and fell on ice landing on her left side. She was seen by her PCP who ordered x-rays and referred to orthopedics. Currently her pain is located at the dorsal and volar aspect of wrist. She has no strength in her hand, stating unable to make a full fist. Denies numbness or tingling. Bottle Booth Attendant Required: Yes Bottle Booth Attendant Services: Bottle Booth Attendant Present Bottle Booth Attendant Name: Patrick ID#[id number] Allergies lisinopril Adverse Reaction (Intermediate, Verified 10/11/24 10:17) cough nifedipine Adverse Reaction (Intermediate, Verified 10/11/24 10:17) Chest pain/headache HPI HPI FC- Left wrist fx, s/p fall 2-3 wks ago: Details: Sada is a 64 year old right hand dominant Kyrgyz speaking woman who presents for a left distal radius fracture, from a fall, DOI: ~09/24/24. She says she was finally seen by her PCP on 10/01/24 and placed in a wrist splint. She complains of pain & weakness in her wrist. She denies any numbness or tingling. [facility] Medical History (Updated 10/11/24 @ 10:31 by German Copeland) Morbid obesity Lipoma of right upper extremity Cough LIBRA (obstructive sleep apnea) Obesity (BMI 35.0-39.9 without comorbidity) Elevated random blood glucose level Morbid obesity with BMI of 40.0-44.9, adult Blurred vision Leukocytosis Bunion of great toe of left foot Foot pain, bilateral Obesity Strain of left Achilles tendon, initial encounter Hypertension, essential Uncontrolled hypertension Chronic GERD Surgical History Hx of colonoscopy History of partial hysterectomy Family History Mother Hypotension Father Multiple myeloma Father No problems noted. Mother Alzheimer's disease Dementia Daughter No problems noted. 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 Current occupational exposures/hazards: No Cognitive needs: No Hearing needs: No Vision needs: No Review of Systems Const All systems reviewed & are unremarkable except as noted in HPI and below Physical Exam Vital Signs: BMI result Body Mass Index 38.6 Const General: cooperative, healthy appearing and no acute distress Orientation/consciousness: patient oriented x3 HEENT Head: Yes normocephalic and Yes atraumatic Eyes EOM: EOMs intact bilaterally Resp Effort & Inspection: normal respiratory effort and able to speak in complete sentences Cardio Jugular venous distension: no JVD Skin General skin exam: turgor normal Rashes: no rashes Neuro General: patient oriented x3 Extrem Other: Evaluation of Left Upper Extremity: The patient is alert, oriented, and in no acute distress Neuro: Median, Ulnar, Radial nerves motor and sensory intact and sensation is normal to the tips of all digits Vascular: Cap refill brisk ROM: She can make a fist and extend all her digits Skin: No lacerations or abrasions or evidence of open fracture General: Resolving ecchymosis. No Erythema or evidence of infection. Tender over the distal radius Radiographs: 3 views of the left wrist were taken and viewed by me today in clinic. They show an intra-articular distal radius fracture, with ~3 degrees apex dorsal angulation seen on the lateral view. There is a transverse & intra-articular component at the scapholunate interval. She has an old, healed, ulnar styloid fracture Psych Appearance: grossly normal Affect: normal affect Attitude: cooperative Office Procedures AMB Fracture Care Details: Fracture care distal radius 710[address] Fracture Billing Code: Fracture Billing Code Assessment & Plan Assessment & Plan (1) Fracture of left distal radius: Code(s): S52.502A - Unspecified fracture of the lower end of left radius, initial encounter for closed fracture Category: Medical Plan Assessment & Plan: 1. Left distal radius fracture, S/P fall DOI: ~09/24/24 ~3 degrees apex dorsal angulation I educated her about this condition I discussed operative and non-operative treatment options I think we can manage this non-operatively, and she is in agreement She was fitted for a velcro wrist splint, to be worn like a cast except for showering, for the next 3 weeks I discussed activity modifications, she is to lift nothing heavier than a cellphone for the next 3 weeks. She is also to avoid any heavy impact activities or activities prone to falling She will perform gentle finger ROM exercises at home She was given a note for work to return to light duty, with a 1lb weight limit with her LUE, effective 10/14/24. She will follow up in 3 weeks, with X-rays, 3V L wrist, OOP 2. Left ulnar styloid fracture Old, healed Satisfactory fracture alignment Scribed for Wanda Weaver MD by German Copeland, medical records tech, on 10/11/24 at 10:30 AM, EST. Orders: Orders XR wrist LT min 3V Today M25.532 - Pain in left wrist Coding Level of Care Code New Pt Level 4 (63119) Diagnoses Fracture of left distal radius S52.502A CPT Codes Fracture Care - Fracture Billing Code: Fracture Billing Code ([id number])
[2024-10-11 10:22] VITALS: BMI 38.6
--- OUTSIDE RECORDS SUMMARY | 2024-10-11 10:34 | XMS_ITS | Encounter Summary ---
Author Organization [facility] Address [address] [place] [address] Care Team Providers Care Interactive Marketing Strategist Name Role Phone Unavailable Primary Care Provider Unavailabl e Encounter Details Date Type Department Care Team (Latest Contact Info) Description 03/05/2019 Abstract [facility] CONVERSIONS Dental, Provider, DDS Social History Tobacco [...] Description 03/25/2025 10:00 AM EDT Office Visit [facility] ADULT DENTAL [address] [place] [address] Jayda Vazquez documented as of this encounter Visit Diagnoses Not on filedocumented in this encounter
--- OUTSIDE RECORDS SUMMARY | 2024-10-11 10:34 | XMS_ITS | Encounter Summary ---
Author Organization [employer] [facility] Address [address] [place] [address] [address] [place] [address] Care Team Providers Care Senior Director Marketing Name Role Phone Unavailable Primary Care Provider Unavailabl e Reason for Visit * Reason Comments Routine Cleaning Dental Exam Encounter Details Date Type Department Care Team ([facility] st Contact Info) Description 09/17/2024 9:00 AM EST Office Visit [facility] ADULT DENT[facility] [address] [place] [address] Jayda Vazquez Dental plaque (Primary Dx); Dental [...] and Prophylaxis Verified the above with patient, chef assistant, and provider. Confirmed via patient's chart, intraorally and by radiographs. Breaker Up: not applicable Medical Hx: Vitals: Blood pressure [...] patient including brushing technique and flossing. Recommendations: [place] two times daily, modified hernandez technique, Floss daily, Electric toothbrush, Soft bristle toothbrush, [place] Tongue Recall Frequency: 6 mo NV: 6mrc, exam Hygienist: Jayda Vazquez RDH Cosigned by Betty Roche DDS at 09/17/2024 11:26 AM EST Associated attestation - Betty Roche DDS - 09/17/2024 11:26 AM EST I have reviewed the documentation and dental procedures made by the rendering provider, Jayda Vazquez RDH , and approve their chart entries for this visit. Betty Roceh DDS * Betty Roche DDS - 09/17/2024 [...] 914 (prophy and exam adult dental) Location: [facility] Tooth: Maxilla and Mandible Procedure: Exam, X-rays, and Prophylaxis Verified the above with patient, chef assistant, and provider. Confirmed via patient's chart, intraorally and by radiographs. Breaker Up: not applicable Chief Complaint Patient presents with [...] Cancer Risk: Low Risk Oral Hygiene Instructions: [place] two times daily, modified hernandez technique, Floss daily, Soft bristle toothbrush, [place] Tongue Caries Risk Assessment: Low- no risk factor Assessment/Plan 6 mo periodic exam PAD Patient tolerated procedure well, all questions answered and expressed understanding. Dismissed in good condition. NV: 6 Mo periodic exam PAD Clam Shucking Machine Tender: Jayda Vazquez Dentist: Betty Roche DDS documented in this encounter Plan of Treatment Upcoming Encounters Date Type Department Care Team (Late st Contact Info) Description 03/25/2025 10:00 AM EDT Office Visit [facility] [address] [place] [address] Jayda Vazquez Scheduled Orders Name Type Priority [...] plaque Dental calculus Encounter for dental examination CASE PRESENTATION, DETAILED AND EXTENSIVE TREATMENT PLANNING Routine 09/17/2024 9:00 AM EST BITEWINGS - 4 RADIOGRAPHIC IMAGES Routine 09/17/2024 9:00 AM EST documented in this encounter Visit Diagnoses Diagnosis Dental plaque- Primary Accretions on teeth Dental calculus Accretions on teeth Encounter for dental examination documented in this encounter
--- OUTSIDE RECORDS SUMMARY | 2024-10-11 10:34 | XMS_ITS | Encounter Summary ---
Author Organization [employer] [facility] Address [address] [place] [address] Care Team Providers Care Household Personal Assistant Name Role Phone Unavailable Primary Care Provider Unavailabl e Encounter Details Date Type Department Care Team (Late st Contact Info) Description 02/15/2023 Orders Only [facility] [address] [place] [address] Betty Roche DDS [address] [place] [address] Social History Tobacco Use Types Packs/Day Years [...] Description 03/25/2025 10:00 AM EDT Office Visit [facility] [address] [place] [address] Jayda Vazquez documented as of this encounter Visit Diagnoses Not on filedocumented in this encounter
--- OUTSIDE RECORDS SUMMARY | 2024-10-11 10:34 | XMS_ITS | Clinical Summary ---
Author Organization [employer] Address [address] [place] [address] Care Team Providers Care Distribution Designer Name Role Phone Unavailable Primary Care Provider [...] Description 09/17/2024 9:00 AM EST Office Visit [facility] [address] [place] [address] Jayda Vazquez Dental plaque (Primary Dx); Dental [...] Description 03/25/2025 10:00 AM EDT Office Visit [facility] [address] [place] [address] Jayda Vazquez Health Maintenance Due Date Last [...] 9:00 AM EST Dental plaque Dental calculus CASE PRESENTATION, DETAILED AND EXTENSIVE TREATMENT PLANNING Routine 09/17/2024 9:00 AM EST PROPHYLAXIS - ADULT Routine 09/17/2024 9 :00 AM EST Dental plaque Dental calculus INTRAORAL - COMPLETE SERIES OF RADIOGRAPHIC IMAGES Routine 11/30/2023 9:30 AM EDT Encounter for dental examination from Last 3 Months or Most Recently Relevant to Health Maintenance Insurance [facility] STAND ADULT Member Subscriber Plan / Payer (Ef fective 2023-Present) Name:Sada Robert Relation to Subscriber:Self Name:Sada Robert Payer ID:Not on file Group ID:Not on file Type:Not on file Address: [place] [id number]
--- OUTSIDE RECORDS SUMMARY | 2024-10-11 10:34 | XMS_ITS | Encounter Summary ---
Author Organization [employer] [facility] Address [address] [place] [address] Care Team Providers Care Long Chain Dyeing Machine Operator Name Role Phone Unavailable Primary Care Provider Unavailabl e Encounter Details Date Type Department Care Team (Latest Contact Info) Description 10/28/2021 Abstract [facility] CONVERSIONS Dental, Provider, DDS Social History Tobacco [...] Description 03/25/2025 10:00 AM EDT Office Visit [facility] ADULT DENT[facility] [address] [place] [address] Jayda Vazquez documented as of this encounter Visit Diagnoses Not on filedocumented in this encounter
--- OUTSIDE RECORDS SUMMARY | 2024-10-11 10:34 | XMS_ITS | Encounter Summary ---
Author Organization [employer] [facility] Address [address] [place] [address] Care Team Providers Care Front Man Name Role Phone Unavailable Primary Care Provider Unavailabl e Encounter Details Date Type Department Care Team (Latest Contact Info) Description 05/27/2020 Abstract [facility] CONVERSIONS Dental, Provider, DDS Social History Tobacco [...] Description 03/25/2025 10:00 AM EDT Office Visit [facility] ADULT DENTAL [address] [place] [address] Jayda Vazquez documented as of this encounter Visit Diagnoses Not on filedocumented in this encounter
== END 2024-10-11 10:55 | disposition home or self-care (01) ==
PROVIDERS: PCP Internal Medicine; Visit Provider Orthopaedic Surgery
DX: S52.502A Unspecified fracture of the lower end of left radius, initial encounter for closed fracture (principal)
CPT/HCPCS: 25600; 99203

== ENCOUNTER → 2024-10-11 10:05 | Outpatient (BNV) | payer OTHER, SELFPAY | PROVIDERS: Visit Provider Radiology Diagnostic Radiology | DX: S52.572A Other intraarticular fracture of lower end of left radius, initial encounter for closed fracture (principal) | CPT/HCPCS: 73110 ==

== ENCOUNTER 2024-10-30 08:41 | Outpatient (REF) | payer OTHER, SELFPAY ==
--- NOTE | ~2024-10-30 | XR_ITS ---
EXAMINATION: XR WRIST, LEFT CLINICAL INFORMATION: M25.532 - Pain in left wrist COMPARISON: 10/11/2024, 10/02/2024. TECHNIQUE: PA, lateral, and oblique views of the left wrist. FINDINGS: Redemonstration of nondisplaced intra-articular distal radial fracture with mild comminution. Extensive sclerosis of the fracture margins is present, and there is bridging bony callus seen at the margins of the fracture. Findings are consistent with continued healing. No change in the alignment. Old healed fracture of the distal ulnar diaphysis. Carpal bones intact and normally aligned. Degenerative changes in the DRUJ. Mild to moderate arthritic change at the STT and first CMC joints. Soft tissue swelling has resolved. XR/XR wrist LT min 3V IMPRESSION: No significant change in alignment of distal radial nondisplaced intra-articular comminuted fracture. Findings consistent with continued bony healing. Electronically signed by: Jose Alejandro Reno MD 10/30/2024 12:45 PM EDT
--- OUTSIDE RECORDS SUMMARY | 2024-10-31 09:24 | XMS_ITS | Encounter Summary ---
Author Organization [employer] [facility] Address [address] [place] [address] Care Team Providers Care Director Of Customer Acquisition Name Role Phone Unavailable Primary Care Provider Unavailabl e Encounter Details Date Type Department Care Team (Latest Contact Info) Description 05/27/2020 Abstract [facility] CONVERSIONS Dental, Provider, DDS Social History Tobacco [...] Description 03/25/2025 10:00 AM EDT Office Visit [facility]ULT [facility] [address] [place] [address] Jayda Vazquez documented as of this encounter Visit Diagnoses Not on filedocumented in this encounter
--- OUTSIDE RECORDS SUMMARY | 2024-10-31 09:25 | XMS_ITS | Encounter Summary ---
Author Organization [employer] [facility] Address [address] [place] [address] Care Team Providers Care Research And Development Researcher Name Role Phone Unavailable Primary Care Provider Unavailabl e Encounter Details Date Type Department Care Team (Latest Contact Info) Description 10/28/2021 Abstract [facility] CONVERSIONS Dental, Provider, DDS Social History [...] Description 03/25/2025 10:00 AM EDT Office Visit [facility]ULT [facility] [address] [place] [address] Jayda Vazquez documented as of this encounter Visit Diagnoses Not on filedocumented in this encounter
--- OUTSIDE RECORDS SUMMARY | 2024-10-31 09:25 | XMS_ITS | Encounter Summary ---
Author Organization [employer] [facility] Address [address] [place] [address] Care Team Providers Care Drop Worker Name Role Phone Unavailable Primary Care Provider Unavailabl e Encounter Details Date Type Department Care Team (Latest Contact Info) Description 03/05/2019 Abstract [facility] CONVERSIONS Dental, Provider, DDS Social History Tobacco [...] Description 03/25/2025 10:00 AM EDT Office Visit [facility]ULT [facility] [address] [place] [address] Jayda Vazquez documented as of this encounter Visit Diagnoses Not on filedocumented in this encounter
--- OUTSIDE RECORDS SUMMARY | 2024-10-31 09:25 | XMS_ITS | Encounter Summary ---
Author Organization [employer] [facility] Address [address] [place] [address] Care Team Providers Care Mechanical Research Engineer Name Role Phone Unavailable Primary Care Provider Unavailabl e Encounter Details Date Type Department Care Team (Late st Contact Info) Description 02/15/2023 Orders Only [facility] [address] [place] [address] Betty Roche DDS [address] [place] [address] Social History Tobacco Use Types Packs/Day Years [...] Description 03/25/2025 10:00 AM EDT Office Visit [facility] [address] [place] [address] Jayda Vazquez documented as of this encounter Visit Diagnoses Not on filedocumented in this encounter
--- OUTSIDE RECORDS SUMMARY | 2024-10-31 09:25 | XMS_ITS | Clinical Summary ---
Author Organization [employer] Address [address] [place] [address] Care Team Providers Care Cupola Charger Insulation Name Role Phone Unavailable Primary Care Provider [...] Description 09/17/2024 9:00 AM EST Office Visit [facility] [address] [place] [address] Jayda Vazquez Dental plaque (Primary Dx); Dental [...] Description 03/25/2025 10:00 AM EDT Office Visit [facility] [address] [place] [address] Jayda Vazquez Health Maintenance Due Date Last [...] ID:Not on file Type:Not on file Address: [place] [phone]
== END 2024-10-30 08:42 | disposition home or self-care (01) ==
LOC: HO.HOSX 08:41
PROVIDERS: Visit Provider Orthopaedic Surgery
DX: M25.532 Pain in left wrist (principal); S52.502A Unspecified fracture of the lower end of left radius, initial encounter for closed fracture
CPT/HCPCS: 73110; 99212

== ENCOUNTER 2024-10-30 09:41 | Outpatient (AMB) | payer OTHER, SELFPAY ==
[2024-10-30 09:51] VITALS: BMI 38.6
--- NOTE | 2024-10-30 09:51 | A.OFFVIS_ITS ---
Vital Signs 10/30/24 09:51 Height 5 ft 4 in Weight 225 lb BMI 38.6 Intake Visit Reasons: OV-Left wrist fx, s/p fall-w/xrays Intake Note: Sada 64 year old right hand dominant Tajik speaking woman presents for her follow up visit for her left distal radius fracture, from a fall, DOI: ~09/24/24. Last visit she was given a velcro wrist brace and was told to treat it as a cast. Currently states she has continued to wear her brace and continues to have pain. STates she is now having pain in her right arm,shoulder due to over compensating for her left. xrays updated in office. Animal Anatomy Teacher Name: Linda CR/SAMM Allergies lisinopril Adverse Reaction (Intermediate, Verified 10/30/24 09:54) cough nifedipine Adverse Reaction (Intermediate, Verified 10/30/24 09:54) Chest pain/headache HPI HPI OV-Left wrist fx, s/p fall-w/xrays: Details: Sada is a 64 year old right hand dominant Tajik speaking woman who returns for her left distal radius fracture, from a fall, DOI: ~09/24/24. She complains of pain & weakness in her wrist. She also complains of worsening pain in her right arm shoulder & wrist, which she says is due to overcompensation for his left wrist. She denies any numbness or tingling. 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 She is not able to work light duty. [facility] Medical History (Updated 10/11/24 @ 10:31 by German Copeland) Morbid obesity Lipoma of right upper extremity Cough LIBRA (obstructive sleep apnea) Obesity (BMI 35.0-39.9 without comorbidity) Elevated random blood glucose level Morbid obesity with BMI of 40.0-44.9, adult Blurred vision Leukocytosis Bunion of great toe of left foot Foot pain, bilateral Obesity Strain of left Achilles tendon, initial encounter Hypertension, essential Uncontrolled hypertension Chronic GERD Surgical History Hx of colonoscopy History of partial hysterectomy Family History Mother Hypotension Father Multiple myeloma Father No problems noted. Mother Alzheimer's disease Dementia Daughter No problems noted. 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 Current occupational exposures/hazards: No Cognitive needs: No Hearing needs: No Vision needs: No Review of Systems Const All systems reviewed & are unremarkable except as noted in HPI and below Physical Exam Vital Signs: BMI result Body Mass Index 38.6 Const General: no acute distress and alert Orientation/consciousness: patient oriented x3 Neuro General: patient oriented x3 Extrem Other: Evaluation of Left Upper Extremity: The patient is alert, oriented, and in no acute distress Neuro: Median, Ulnar, Radial nerves motor and sensory intact and sensation is normal to the tips of all digits Vascular: Cap refill brisk ROM: She can make a fist and extend all her digits She can make a tight fist with good strength and no pain. Wrist ROM: ~ 40 degrees flexion ~50 degrees extension ~60 degrees supination ~65 degrees pronation General: Resolved ecchymosis. No tenderness over the distal radius Radiographs: 3 views of the left wrist were taken and viewed by me today in clinic. They show an intra-articular distal radius fracture, with ~3 degrees apex dorsal angulation seen on the lateral view, overall satisfactory fracture alignment. There is a transverse & intra-articular component at the scapholunate interval. She has an old, healed, ulnar shaft fracture Psych Appearance: grossly normal Affect: normal affect Attitude: cooperative Assessment & Plan Assessment & Plan (1) Fracture of left distal radius: Code(s): S52.502A - Unspecified fracture of the lower end of left radius, initial encounter for closed fracture Category: Medical Plan Assessment & Plan: 1. Left distal radius fracture, S/P fall DOI: ~09/24/24 Managed non operatively in a cast/splint I educated her about this condition She appears to be healing well. She will transition to wearing her velcro wrist splint with daily activities when out of the house. She will remove this when at home at rest I discussed activity modifications, she is to lift nothing heavier than ~4lbs for the next 3 weeks. She should use her wrist for more normal light & medium weight activities at this time. She is also to avoid any heavy impact activities or activities prone to falling She will perform gentle finger & wrist ROM exercises at home I ordered OT hand therapy to work on wrist ROM She works as a MATHEMATICS FAC[employer]Y MEMBER. She was given a note for work to remain out of work for 2 weeks, effective 10/30/24. She will return to work on 11/13/24, on light duty with a 5lb weight limit She will follow up in 4 weeks for [id number] check, no x-rays unless she has a new injury 2. Left ulnar shaft fracture Old, healed Satisfactory fracture alignment Scribed for Wanda Weaver MD by German Copeland, medical grade shoemaker, on 10/30/24 at 10:15 AM, EST. Orders: Orders XR wrist LT min 3V Today M25.532 - Pain in left wrist OT Evaluation and Treatment Today S52.502A - Unspecified fracture of the lower end of left radius, initial encounter for closed fracture Coding Level of Care Code Global (84751) Diagnoses Fracture of left distal radius S52.502A
--- OUTSIDE RECORDS SUMMARY | 2024-10-30 10:46 | XMS_ITS | Encounter Summary ---
Author Organization [employer] [facility] Address [address] [place] [address] Care Team Providers Care Video Editing Internship Name Role Phone Unavailable Primary Care Provider Unavailabl e Encounter Details Date Type Department Care Team (Latest Contact Info) Description 05/27/2020 Abstract [facility] CONVERSIONS Dental, Provider, DDS Social [...] Description 03/25/2025 10:00 AM EDT Office Visit [facility] [address] [place] [address] Jayda Vazquez documented as of this encounter Visit Diagnoses Not on filedocumented in this encounter
--- OUTSIDE RECORDS SUMMARY | 2024-10-30 10:46 | XMS_ITS | Encounter Summary ---
Author Organization [employer] [facility] Address [address] [place] [address] Care Team Providers Care Brick Washer Name Role Phone Unavailable Primary Care Provider Unavailabl e Encounter Details Date Type Department Care Team (Latest Contact Info) Description 10/28/2021 Abstract [facility] CONVERSIONS Dental, Provider, DDS Social [...] Description 03/25/2025 10:00 AM EDT Office Visit [facility] [address] [place] [address] Jayda Vazquez documented as of this encounter Visit Diagnoses Not on filedocumented in this encounter
--- OUTSIDE RECORDS SUMMARY | 2024-10-30 10:46 | XMS_ITS | Clinical Summary ---
Author Organization [employer] Address [address] [place] [address] Care Team Providers Care Ceiling Cleaner Name Role Phone Unavailable Primary Care Provider [...] Description 09/17/2024 9:00 AM EST Office Visit [facility] [address] [place] [address] Jayda Vazquez Dental plaque (Primary Dx); Dental [...] Description 03/25/2025 10:00 AM EDT Office Visit [facility] [address] [place] [address] Jayda Vazquez Health Maintenance Due Date Last [...] ID:Not on file Type:Not on file Address: [place] [phone]
--- OUTSIDE RECORDS SUMMARY | 2024-10-30 10:46 | XMS_ITS | Encounter Summary ---
Author Organization [facility] Address [address] [place] [address] Care Team Providers Care Senior Mobile Application Developer Name Role Phone Unavailable Primary Care Provider Unavailabl e Encounter Details Date Type Department Care Team (Latest Contact Info) Description 03/05/[address] [facility] CONVERSIONS Dental, Provider, DDS Social History [...] Description 03/25/2025 10:00 AM EDT Office Visit [facility] [address] [place] [address] Jayda Vazquez documented as of this encounter Visit Diagnoses Not on filedocumented in this encounter
--- OUTSIDE RECORDS SUMMARY | 2024-10-30 10:46 | XMS_ITS | Encounter Summary ---
Author Organization [email or web address] [facility] Address [address] [place] [address] Care Team Providers Care Concrete Block Layer Name Role Phone Unavailable Primary Care Provider Unavailabl e Encounter Details Date Type Department Care Team (Late st Contact Info) Description 02/15/2023 Orders Only [facility] [address] [place] [address] Betty Roche DDS [address] [place] [address] Social History Tobacco Use Types Packs/Day Years [...] Description 03/25/2025 10:00 AM EDT Office Visit [facility] [address] [place] [address] Jayda Vazquez documented as of this encounter Visit Diagnoses Not on filedocumented in this encounter
== END 2024-10-30 10:33 | disposition home or self-care (01) ==
LOC: HO.HOS 09:42
PROVIDERS: PCP Internal Medicine; Visit Provider Orthopaedic Surgery
DX: S52.502A Unspecified fracture of the lower end of left radius, initial encounter for closed fracture (principal)
CPT/HCPCS: 99024

== ENCOUNTER → 2024-10-30 09:44 | Outpatient (BNV) | payer OTHER, SELFPAY | PROVIDERS: Visit Provider Radiology Diagnostic Radiology | DX: S52.571A Other intraarticular fracture of lower end of right radius, initial encounter for closed fracture (principal) | CPT/HCPCS: 73110 ==

== ENCOUNTER 2024-11-11 10:34 | Outpatient (AMB) | payer OTHER, SELFPAY ==
--- NOTE | 2024-11-11 10:45 | A.OFFVIS_ITS ---
Vital Signs 11/11/24 10:47 Height 5 ft 4 in Weight 220 lb 7.396 oz BMI 37.8 BP 120/64 Blood Pressure Location Lt brachial Position Sitting Pulse 63 Pulse Source Monitor Intake Visit Reasons: 1 yr f/up DC Intake Note: 1 yr f/up Water Plant Pump Operator Required: Yes Water Plant Pump Operator Language: Developer Relations Manager Name: [email or web address] Accompanied by: Self / Same As Patient Allergies lisinopril Adverse Reaction (Intermediate, Verified 10/30/24 09:54) cough nifedipine Adverse Reaction (Intermediate, Verified 10/30/24 09:54) Chest pain/headache Medication List - Last Reconciled 11/11/24 by Krish Villa MD acetaminophen 500 mg PO BID PRN 90 days [Adult Pull UPs As directed] amlodipine 5 mg PO DAILY 90 days aspirin 81 mg PO DAILY 90 days atenolol 100 mg PO DAILY 90 days [Blood pressure monitor As directed] diclofenac sodium 1% (Arthritis Pain (diclofenac)) 2 grams topical QID PRN 30 days Grab bar As directed omeprazole 40 mg PO DAILY 90 days polyethylene glycol 3350 (Gavilax) 17 grams PO DAILY PRN spironolacton-hydrochlorothiaz 25-25 mg 1 tab PO DAILY 90 days wheat dextrin (Benefiber Healthy Shape) 15 grams PO DAILY 90 days HPI Comments Details: Pleasant 64-year-old lady here for management of hypertension. She had hypertension diagnosed 35 years ago. She has been on spironolactone, hydrochlorothiazide and atenolol. Her blood pressure recently has been elevated. She has gained weight and snores at night but does not have known diagnosis of sleep apnea. Today she returns for follow-up. He is complaining of some dyspnea on exertion. Her blood pressure is reasonably controlled right now. She is taking medications regularly. Clinically does not look volume overloaded. Has been taking medications regularly. 07/19/2023: She returns for follow-up. She has been doing well. No chest discomfort shortness of breath. Blood pressure control is good. She had a stress test previously done for dyspnea and during exercise stress test she had hypertensive response to exercise. She is saying that she is feeling better. Her only complaint is that when she takes Lasix she has to go urinate multiple times which disrupts her work. She has tried to take it at night and could not sleep. She is asking whether Lasix can be stopped. 11/11/2024: She is here for follow-up. She has been getting some sharp chest pains at nighttime. This is when she is resting and she can put 1 finger on the chest. It hurts and it is tender there. During the day she does not get any symptoms. Blood pressure is stable on current medications. No other complaints. [facility] Medical History (Updated 11/11/24 @ 11:06 by Krish Villa MD) Morbid obesity Lipoma of right upper extremity Cough LIBRA (obstructive sleep apnea) Obesity (BMI 35.0-39.9 without comorbidity) Elevated random blood glucose level Morbid obesity with BMI of 40.0-44.9, adult Blurred vision Leukocytosis Bunion of great toe of left foot Foot pain, bilateral Obesity Strain of left Achilles tendon, initial encounter Hypertension, essential Uncontrolled hypertension Chronic GERD Surgical History Hx of colonoscopy History of partial hysterectomy Family History Mother Hypotension Father Multiple myeloma Father No problems noted. Mother Alzheimer's disease Dementia Daughter No problems noted. 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 Current occupational exposures/hazards: No Cognitive needs: No Hearing needs: No Vision needs: No Review of Systems Const Denies chills, Denies fatigue, Denies fever(s), Denies frequent falls, Denies weakness, Denies weight gain and Denies weight loss ENT Denies dizziness Card Denies chest pain, Denies leg edema, Denies lightheadedness, Denies palpitations, Denies dyspnea and Denies dyspnea on exertion Resp Denies cough, Denies dyspnea and Denies dyspnea on exertion GI Denies hematochezia Musc Denies abnormal gait, Denies muscle weakness, Denies numbness, Denies radiating pain into limb and Denies tingling Neuro Denies abnormal gait, Denies dizziness, Denies frequent falls, Denies numbness, Denies tingling and Denies weakness Endo Denies fatigue and Denies palpitations Physical Exam Vital Signs: Last Vital Signs Pulse 63 11/11/24 10:47 BP 120/64 11/11/24 10:47 BMI result Body Mass Index 37.8 GENERAL APPEARANCE: in no acute distress, pleasant. Obese. NECK: no carotid bruit, no jugular venous distention. SKIN: no suspicious lesions, warm and dry. HEART: no murmurs, regular rate and rhythm. LUNGS: clear to auscultation bilaterally. ABDOMEN: soft, nontender. EXTREMITIES: No edema. PERIPHERAL PULSES: equal. NEUROLOGIC: No gross deficits, AAO X 3 Office Procedures EKG Details: Sinus rhythm 63 beats per minute, normal axis, normal ECG, QTC 429 milliseconds. 40425-Vlqzrntvnanrappoc, Complete Assessment & Plan Assessment & Plan (1) Hypertension, essential: Code(s): I10 - Essential (primary) hypertension Category: Medical (2) Chest pain: Code(s): R07.9 - Chest pain, unspecified Category: Medical Plan 64-year-old female presenting for follow-up. She has noncardiac chest pain likely musculoskeletal in origin. Blood pressure is stable currently on spironolactone hydrochlorothiazide combination and atenolol 100 mg daily. She is also on amlodipine 5 mg daily. Follow-up with us in 1 year. Thank you for allowing me to participate in the care of your patient. Please feel free to contact me if you have any questions. Coding Level of Care Code Est Pt Level 3 (78391) Diagnoses Hypertension, essential I10 Chest pain R07.9 CPT Codes EKG - CPT: 94306-Krsepoepquedjiwib, Complete ([id number])
[2024-11-11 10:47] VITALS: BP 120/64; PULSE 63; BMI 37.8
== END 2024-11-11 11:06 | disposition home or self-care (01) ==
PROVIDERS: PCP Internal Medicine; Visit Provider Internal Medicine Cardiovascular Disease
DX: I10 Essential (primary) hypertension (principal); R07.9 Chest pain, unspecified
CPT/HCPCS: 93010; 99213

== ENCOUNTER → 2024-11-11 10:34 | Outpatient (BNVA) | payer OTHER, SELFPAY | PROVIDERS: PCP Internal Medicine; Visit Provider Internal Medicine Cardiovascular Disease | DX: I10 Essential (primary) hypertension (principal); R07.9 Chest pain, unspecified | CPT/HCPCS: 93005; 99212 ==

== ENCOUNTER 2024-11-18 08:39 | Outpatient (AMB) | payer OTHER, SELFPAY ==
[2024-11-18 08:47] VITALS: BMI 38.3
--- NOTE | 2024-11-18 08:47 | A.OFFVIS_ITS ---
VS Expanded 11/18/24 08:47 Height 5 ft 4 in Weight 222 lb 14.197 oz BMI 38.3 Intake Visit Reasons: Obesity Allergies lisinopril Adverse Reaction (Intermediate, Verified 10/30/24 09:54) cough nifedipine Adverse Reaction (Intermediate, Verified 10/30/24 09:54) Chest pain/headache Nutrition Presentation Details: Pt presents for MNT f/u for Obesity Pt reports gradually making dietary modifications, challenges reducing sugars fluids: milk/juices, and 8-10 oz of water/day Reports sensitivity to textures/flavors particularly with high fiber foods physical activity: sedentary, BS Monitoring Most Recent Diabetes Results: Cholesterol 136 mg/dL (<200) 10/02/24 HDL Cholesterol 51 mg/dL (>40) 10/02/24 Triglycerides 78 mg/dL (<150) 10/02/24 Creatinine 0.73 mg/dL (0.5-1.4) 10/02/24 Blood Urea Nitrogen 20 mg/dL (9-16) H 10/02/24 Sodium 140 mmol/L (135-145) 10/02/24 Potassium 3.7 mmol/L (3.3-5.1) 10/02/24 Chloride 110 mmol/L (96-108) H 10/02/24 Carbon Dioxide 24 mmol/L (22-29) 10/02/24 Calcium 9.2 mg/dL (8.4-10.2) 10/02/24 AST 24 U/L (5-31) 10/02/24 ALT 28 U/L (0-31) 10/02/24 Total Protein 7.9 g/dL (6.5-8.0) 10/02/24 Albumin 3.9 g/dL (3.5-5.0) 10/02/24 [facility] Medical History (Updated 11/11/24 @ 11:06 by Krish Villa MD) Morbid obesity Lipoma of right upper extremity Cough LIBRA (obstructive sleep apnea) Obesity (BMI 35.0-39.9 without comorbidity) Elevated random blood glucose level Morbid obesity with BMI of 40.0-44.9, adult Blurred vision Leukocytosis Bunion of great toe of left foot Foot pain, bilateral Obesity Strain of left Achilles tendon, initial encounter Hypertension, essential Uncontrolled hypertension Chronic GERD Surgical History Hx of colonoscopy History of partial hysterectomy Family History Mother Hypotension Father Multiple myeloma Father No problems noted. Mother Alzheimer's disease Dementia Daughter No problems noted. 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 Used wt : 104 kg ( 98.6 kg on 05/10/23) (99.5 07/2023), 99kg (10/2023), 103 (06/13), 101 kg (11/12) Est kcal as per MSJ: 2176-250/500 = 1676- 1926 (40% carb, 30% fat/prot) Est fluid needs:2600 ml/d (25 ml/kg bw) Rec fiber: increase to 8-10 g per day and gradually increase to 25 g/d or as tolerated Rec Na: < 2000 mg /d Educate patient on: (R= Reviewed, V = verbalizes understanding N/R= Needs review N/A= not applicable) * Food sources of carbohydrates and serving adequate serving sizes : R V * Difference between complex carbohydrates and simple carbohydrates, role of fiber: R * Differences between fats (MUFA/PUFA/saturated fats, trans fats) and food sources of various fats: R , basic low fat concepts * Food sources of sodium and salt and healthy modifications for heart health and kidney health: R * How to interpret food labels: R * Healthy Plate method concept: R * Physical activity: benefits and precaution: V Patient Instructions: * Incorporate blenderized fiber rich foods (mix fruits with a new vegetables) see blenderized recipes aiming at gradually increasing fiber by 6 g per day Increase water to 8-10 cups/day try chair exercises Coding Level of Care Code Nutr Indiv Subseq (45021) Diagnoses Obesity (BMI 35.0-39.9 without comorbidity) E66.9 Time Spent (min) 24
== END 2024-11-18 09:23 | disposition home or self-care (01) ==
LOC: HO.ENCR 08:40
PROVIDERS: PCP Internal Medicine; Visit Provider Dietitian, Registered
DX: E66.9 Obesity, unspecified (principal)

== ENCOUNTER → 2024-11-18 08:39 | Outpatient (BNVA) | payer OTHER, SELFPAY | PROVIDERS: PCP Internal Medicine; Visit Provider Dietitian, Registered | DX: E66.9 Obesity, unspecified (principal); Z71.3 Dietary counseling and surveillance; Z68.38 Body mass index [BMI] 38.0-38.9, adult | CPT/HCPCS: 97803 ==

== ENCOUNTER 2024-11-26 09:37 | Outpatient (AMB) | payer OTHER, SELFPAY ==
[2024-11-26 09:47] VITALS: BMI 38.1
--- NOTE | 2024-11-26 09:47 | MHC.OFFVIS ---
Vital Signs 11/26/24 09:47 Height 5 ft 4 in Weight 222 lb BMI 38.1 Intake Visit Reasons: OV-Left wrist fx, s/p fall-w/xrays Intake Note: Sada 64 year old right hand dominant Polish speaking woman presents for her follow up visit for her left distal radius fracture, from a fall, DOI: ~09/24/24. States she is improving with her ROM however states she still has weakness and is dropping items. Air Conditioning Installer Required: Yes Air Conditioning Installer Name: Linda CR/ SAMM Allergies lisinopril Adverse Reaction (Intermediate, Verified 11/26/24 09:50) cough nifedipine Adverse Reaction (Intermediate, Verified 11/26/24 09:50) Chest pain/headache HPI HPI OV-Left wrist fx, s/p fall-w/xrays: Details: Sada is a 64 year old right hand dominant Polish speaking woman who returns for her left distal radius fracture, from a fall, DOI: ~09/24/24. She continues to complain of weakness in her wrist. She feels she is improving her ROM somewhat with OT hand therapy. She denies any numbness or tingling. It sounds like she has not yet been working. 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 She is not able to work light duty. [facility] Medical History (Updated 11/11/24 @ 11:06 by Krish Villa MD) Morbid obesity Lipoma of right upper extremity Cough LIBRA (obstructive sleep apnea) Obesity (BMI 35.0-39.9 without comorbidity) Elevated random blood glucose level Morbid obesity with BMI of 40.0-44.9, adult Blurred vision Leukocytosis Bunion of great toe of left foot Foot pain, bilateral Obesity Strain of left Achilles tendon, initial encounter Hypertension, essential Uncontrolled hypertension Chronic GERD Surgical History Hx of colonoscopy History of partial hysterectomy Family History Mother Hypotension Father Multiple myeloma Father No problems noted. Mother Alzheimer's disease Dementia Daughter No problems noted. 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 Current occupational exposures/hazards: No Cognitive needs: No Hearing needs: No Vision needs: No Physical Exam Vital Signs: BMI result Body Mass Index 38.1 Const General: no acute distress and alert Orientation/consciousness: patient oriented x3 Neuro General: patient oriented x3 Extrem Other: Evaluation of Left Upper Extremity: The patient is alert, oriented, and in no acute distress Neuro: Median, Ulnar, Radial nerves motor and sensory intact and sensation is normal to the tips of all digits Vascular: Cap refill brisk ROM: She can make a fist and extend all her digits She can make a tight fist with good strength and no pain. Wrist ROM: ~60 degrees flexion ~70 degrees extension ~70 degrees supination ~70 degrees pronation General: Resolved ecchymosis. No tenderness over the distal radius Psych Appearance: grossly normal Affect: normal affect Attitude: cooperative Assessment & Plan Assessment & Plan (1) Fracture of left distal radius: Code(s): S52.502A - Unspecified fracture of the lower end of left radius, initial encounter for closed fracture Category: Medical Plan Assessment & Plan: 1. Left distal radius fracture, S/P fall DOI: ~09/24/24 Managed non operatively in a cast/splint I educated her about this condition She appears to be healing well. She will discontinue her wrist splint at this time I discussed activity modifications, she should use her wrist for more normal light & medium weight activities at this time. 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 She was given a note for work to return on light duty, with a 10lb weight limit, effective 12/02/24, with the goal of returning to full duty in 4 weeks She will follow up in 3-4 weeks for a ROM check, no x-rays unless she has a new injury. Again hopefully we will return her to full duty at that time. 2. Left ulnar shaft fracture Old, healed Satisfactory fracture alignment Scribed for Wanda Weaver MD by German Copeland, medical billing and coding specialist, on 11/26/24 at 10:05 AM, EST. Coding Level of Care Code Global (50495) Diagnoses Fracture of left distal radius S52.502A
--- OUTSIDE RECORDS SUMMARY | 2024-11-26 10:49 | XMS_ITS | Encounter Summary ---
Author Organization [facility] Address [address] [place] [id number] Care Team Providers Care Ship Washer Name Role Phone Unavailable Primary Care Provider Unavailabl e Encounter Details Date Type Department Care Team (Latest Contact Info) Description 10/28/2021 Abstract [facility] CONVERSIONS Dental, Provider, [...] Visit [facility] ADULT DENTAL [address] [place] [address] Jayda Vazquez documented as of this encounter Visit Diagnoses Not on filedocumented in this encounter
--- OUTSIDE RECORDS SUMMARY | 2024-11-26 10:49 | XMS_ITS | Encounter Summary ---
Author Organization [facility] Address [address] [place] [address] Care Team Providers Care Business Analytics Director Name Role Phone Unavailable Primary Care Provider Unavailabl e Encounter Details Date Type Department Care Team (Late st Contact Info) Description 02/15/2023 Orders Only [facility] ADULT DENTAL [address] [place] [address] Betty Roche DDS [address] [place] [address] Social History Tobacco Use Types Packs/Day Years [...] Description 03/25/2025 10:00 AM EDT Office Visit [facility] ADULT DENTAL [address] [place] [address] Jayda Vazquez documented as of this encounter Visit Diagnoses Not on filedocumented in this encounter
--- OUTSIDE RECORDS SUMMARY | 2024-11-26 10:49 | XMS_ITS | Encounter Summary ---
Author Organization [facility] Address [address] [place] [address] [address], [place] [address] Care Team Providers Care Subgrade Roller Operator Name Role Phone Unavailable Primary Care Provider Unavailabl e Encounter Details Date Type Department Care Team (Latest Contact Info) Description 05/27/[address] [facility] CONVERSIONS Dental, Provider, DDS Social History [...] AM EDT Office Visit [facility] ADULT DENTAL [address] [place] [address] Jayda Vazquez documented as of this encounter Visit Diagnoses Not on filedocumented in this encounter
--- OUTSIDE RECORDS SUMMARY | 2024-11-26 10:49 | XMS_ITS | Encounter Summary ---
Author Organization [employer] [facility] Address [address] [place] [address] [place], [place] [address] Care Team Providers Care Circuit Court Clerk Name Role Phone Unavailable Primary Care Provider Unavailabl e Encounter Details Date Type Department Care Team (Latest Contact Info) Description 03/05/2019 Abstract [facility] CONVERSIONS Dental, Provider, DDS Social History Tobacco [...] 03/25/2025 10:00 AM EDT Office Visit [facility] ADULT DENTAL [address] [place] [address] Jayda Vazquez documented as of this encounter Visit Diagnoses Not on filedocumented in this encounter
--- OUTSIDE RECORDS SUMMARY | 2024-11-26 10:49 | XMS_ITS | Clinical Summary ---
Author Organization [employer] Address [address] [place] [address] Care Team Providers Care Shredding Specialist Name Role Phone Unavailable Primary Care [...] Description 09/17/2024 9:00 AM EST Office Visit [facility] ADULT DENTAL [address] [place] [address] Jayda Vazquez Dental plaque (Primary Dx); Dental [...] AM EDT Office Visit [facility]AL [address] [place] [address] Jayda Vazquez Health Maintenance Due Date Last [...] Most Recently Relevant to Health Maintenance [facility] ST[facility] ADULT
== END 2024-11-26 10:19 | disposition home or self-care (01) ==
LOC: HO.HOS 09:37
PROVIDERS: PCP Internal Medicine; Visit Provider Orthopaedic Surgery
DX: S52.502A Unspecified fracture of the lower end of left radius, initial encounter for closed fracture (principal)
CPT/HCPCS: 99024

== ENCOUNTER → 2024-11-26 09:37 | Outpatient (BNVA) | payer OTHER, SELFPAY | PROVIDERS: PCP Internal Medicine; Visit Provider Orthopaedic Surgery | DX: S52.502D Unspecified fracture of the lower end of left radius, subsequent encounter for closed fracture with routine healing (principal) | CPT/HCPCS: 99212 ==

== ENCOUNTER 2024-12-25 09:49 | Outpatient (AMB) | payer OTHER, SELFPAY ==
[2024-12-25 09:50] VITALS: BMI 38.1
--- NOTE | 2024-12-25 09:50 | MHC.OFFVIS ---
Vital Signs 12/25/24 09:50 Height 5 ft 4 in Weight 222 lb BMI 38.1 Intake Visit Reasons: OV-Left wrist fx, s/p fall-w/out Xray Intake Note: Sada 64 year old right hand dominant Bahamian speaking woman presents for her follow up visit for her left distal radius fracture, from a fall, DOI: ~09/24/24 ROM check. States she has one more O.T session, states she has had kandy ROM improvement with O.T however she is still having pain in her ulnar aspect of arm. Esol Teacher Assistant Name: Linda CR /SAMM Allergies lisinopril Adverse Reaction (Intermediate, Verified 12/25/24 09:53) cough nifedipine Adverse Reaction (Intermediate, Verified 12/25/24 09:53) Chest pain/headache HPI HPI OV-Left wrist fx, s/p fall-w/out Xray: Details: Sada is a 64 year old right hand dominant Bahamian speaking woman who returns for her left distal radius fracture, from a fall, DOI: ~09/24/24. She says she is doing better with her ROM and has been doing well with OT hand therapy. She complains of ongoing pain in the ulnar aspect of her wrist. She denies any numbness or tingling. It sounds like she has not yet been working. 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 She is not able to work light duty. [facility] Medical History (Updated 11/11/24 @ 11:06 by Krish Villa MD) Morbid obesity Lipoma of right upper extremity Cough LIBRA (obstructive sleep apnea) Obesity (BMI 35.0-39.9 without comorbidity) Elevated random blood glucose level Morbid obesity with BMI of 40.0-44.9, adult Blurred vision Leukocytosis Bunion of great toe of left foot Foot pain, bilateral Obesity Strain of left Achilles tendon, initial encounter Hypertension, essential Uncontrolled hypertension Chronic GERD Surgical History Hx of colonoscopy History of partial hysterectomy Family History Mother Hypotension Father Multiple myeloma Father No problems noted. Mother Alzheimer's disease Dementia Daughter No problems noted. 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 Wrist ROM: ~75 degrees flexion ~85 degrees extension ~70 degrees supination Full pronation General: Resolved ecchymosis. No tenderness over the distal radius She complains of ulnar shaft pain, ~8cm proximal to the distal ulna Radiographs: 3 views of the left wrist were taken and viewed by me today in clinic. They show an intra-articular distal radius fracture well-healed with satisfactory fracture alignment. She has an old ulnar shaft fracture ~4.5cm proximal to the distal ulna, healed, no different when compared to radiographs from 10/02/24 Psych Appearance: grossly normal Affect: normal affect Attitude: cooperative Assessment & Plan Assessment & Plan (1) Fracture of left distal radius: Code(s): S52.502A - Unspecified fracture of the lower end of left radius, initial encounter for closed fracture Category: Medical Plan Assessment & Plan: 1. Left distal radius fracture, S/P fall DOI: ~09/24/24 Managed non operatively in a cast/splint , went on to heal well I educated her about this condition She has been attending OT hand therapy and has improved her ROM I discussed activity modifications, she should use her wrist for more normal daily activities at this time. 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 Left ulnar shaft fracture Old, healed Satisfactory fracture alignment She complains of some tenderness along the ulnar shaft, ~8cm proximal to the distal ulna. This was her chief complaint today. This is about 4 cm proximal to the old healed ulnar shaft fracture. No evidence of new fracture Etiology unclear. Patient thinks may be related to massaging the area in PT no treatment indicated. Please note that greater than 45 minutes was spent with this patient going over the history, evaluating the patient and radiographs, formulating possible treatment options, discussing them with the patient, and documenting the visit. Scribed for Wanda Weaver MD by German Copeland, medical payment poster, on 12/25/24 at 10:05 AM, EST. Orders: Orders XR wrist LT min 3V Today M25.532 - Pain in left wrist Coding Level of Care Code Est Pt Level 3 (98269) Diagnoses Fracture of left distal radius S52.502A
--- OUTSIDE RECORDS SUMMARY | 2024-12-25 10:43 | XMS_ITS | Encounter Summary ---
Author Organization [email or web address] Address [address] [place] [address] [address] [place] [address] Care Team Providers Care It Integration Architect Name Role Phone Unavailable Primary Care Provider Unavailabl e Encounter Details Date Type Department Care Team (Latest Contact Info) Description 05/27/2020 Abstract [facility] CONVERSIONS Dental, Provider, DDS Social [...] 10:00 AM EDT Office Visit [facility] ADULT DENTAL [address] [place] [address] [place] [address] [place] [address] documented as of this encounter Visit Diagnoses Not on filedocumented in this encounter
--- OUTSIDE RECORDS SUMMARY | 2024-12-25 10:43 | XMS_ITS | Encounter Summary ---
Author Organization [employer] Address [address] [place] [address] [place] [address] Care Team Providers Care Flat Polisher Name Role Phone Unavailable Primary Care Provider Unavailabl e Encounter Details Date Type Department Care Team (Latest Contact Info) Description 10/28/2021 Abstract [facility] CONVERSIONS Dental, Provider, DDS Social History [...] Description 03/25/2025 10:00 AM EDT Office Visit [facility] ADULT DENTAL [address] [place] [address] [place] [address] [place] [address] documented as of this encounter Visit Diagnoses Not on filedocumented in this encounter
--- OUTSIDE RECORDS SUMMARY | 2024-12-25 10:43 | XMS_ITS | Encounter Summary ---
Author Organization [employer] Address [address] [place] [address] [address] [place] [address] Care Team Providers Care 2 Year Olds Preschool Teacher Name Role Phone Unavailable Primary Care Provider Unavailabl e Encounter Details Date Type Department Care Team (Late st Contact Info) Description 02/15/2023 Orders Only [facility] ADULT DENTAL [address] [place] [address] Betty Roche DDS [address] [place] [address] Social History Tobacco Use Types Packs/Day Years [...] Description 03/25/2025 10:00 AM EDT Office Visit [facility] ADULT DENTAL [address] [place] [address] [place] [address] [place] [address] [phone] documented as of this encounter Visit Diagnoses Not on filedocumented in this encounter
--- OUTSIDE RECORDS SUMMARY | 2024-12-25 10:44 | XMS_ITS | Encounter Summary ---
Author Organization [employer] Address [address] [place] [address] [address] [address] Care Team Providers Care Equipment Operator/Laborer Name Role Phone Unavailable Primary Care Provider Unavailabl e Encounter Details Date Type Department Care Team (Latest Contact Info) Description 03/05/2019 Abstract [facility] CONVERSIONS Dental, Provider, DDS Social History [...] Description 03/25/2025 10:00 AM EDT Office Visit [facility] ADULT DENTAL [address] [place] [address] [place] [address] [place] [address] documented as of this encounter Visit Diagnoses Not on filedocumented in this encounter
--- OUTSIDE RECORDS SUMMARY | 2024-12-25 10:44 | XMS_ITS | Clinical Summary ---
Author Organization [employer] Address [address] [place] [address] 7 [place] [address] Care Team Providers Care Cyanide Case Hardener Name Role Phone Unavailable Primary Care Provider [...] Date Diagnosed Date Missing teeth, acquired 07/06/2023 Social History Tobacco Use Types Packs/Day Years [...] Description 03/25/2025 10:00 AM EDT Office Visit [facility] ADULT DENTAL [address] [place], [place] [phone] [place] [address] [place] [address] Health Maintenance Due Date Last Done Comments [...] (1 of 2) 02/19/2010 COVID-19 Vaccine ( - season) 2024 08/06/2021, 11/26/2020, 11/05/2020 Influenza Vaccine [...] :00 AM EST Dental plaque Dental calculus BITEWINGS - 4 RADIOGRAPHIC IMAGES Routine 09/17/2024 9:00 AM EST PERIODIC ORAL EVALUATION - ESTABLISHED PATIENT Routine 09/17/2024 9:00 AM EST Dental plaque Dental calculus Encounter for dental examination INTRAORAL - COMPLETE SERIES OF RADIOGRAPHIC IMAGES Routine 11/30/2023 9:30 AM EDT Encounter for dental examination from Last 3 Months or Most Recently Relevant to Health Maintenance Insurance [facility] MED[facility]ID STAND ADULT
== END 2024-12-25 11:26 | disposition home or self-care (01) ==
LOC: HO.HOS 09:49
PROVIDERS: PCP Internal Medicine; Visit Provider Orthopaedic Surgery
DX: S52.502A Unspecified fracture of the lower end of left radius, initial encounter for closed fracture (principal)
CPT/HCPCS: 99024

== ENCOUNTER 2024-12-25 09:49 | Outpatient (REF) | payer OTHER, SELFPAY ==
--- NOTE | ~2024-12-25 | XR_ITS ---
EXAMINATION: XR WRIST, LEFT CLINICAL INFORMATION: M25.532 - Pain in left wrist COMPARISON: 10/30/2024, 10/11/2024, 10/02/2024. TECHNIQUE: PA, lateral, and oblique views of the left wrist. FINDINGS: Redemonstration of nondisplaced intra-articular distal radial fracture with mild comminution. Extensive sclerosis of the fracture margins is present, and there is more extensive bridging bony callus seen at the margins of the fracture. Fracture lines are far less distinct. Findings are consistent with continued healing. No change in the alignment. Old healed fracture of the distal ulnar diaphysis. Carpal bones intact and normally aligned. Degenerative changes in the DRUJ. Mild to moderate arthritic change at the STT and first CMC joints. Soft tissues appear normal. XR/XR wrist LT min 3V IMPRESSION: No significant change in alignment of distal radial nondisplaced intra-articular comminuted fracture. Findings consistent with continued bony healing. Electronically signed by: Jose Alejandro Reno MD 12/25/2024 10:37 AM EDT
--- OUTSIDE RECORDS SUMMARY | 2024-12-25 11:26 | XMS_ITS | Encounter Summary ---
Author Organization [employer] Address [address] [place] [address] 7 [place] [address] Care Team Providers Care Regulatory Lead Name Role Phone Unavailable Primary Care Provider Unavailabl e Encounter Details Date Type Department Care Team (Latest Contact Info) Description 05/27/2020 Abstract [facility] CONVERSIONS Dental, Provider, DDS Social [...] Description 03/25/2025 10:00 AM EDT Office Visit [facility] ADULT DENTAL [address] [place] [address] [place] [address] [place] [address] documented as of this encounter Visit Diagnoses Not on filedocumented in this encounter
--- OUTSIDE RECORDS SUMMARY | 2024-12-25 11:26 | XMS_ITS | Encounter Summary ---
Author Organization [employer] Address [address] [place] [address] [address] [address] Care Team Providers Care Leather Stretcher Name Role Phone Unavailable Primary Care Provider Unavailabl e Encounter Details Date Type Department Care Team (Latest Contact Info) Description 03/05/2019 Abstract [facility] CONVERSIONS Dental, Provider, DDS Social History Tobacco [...] 10:00 AM EDT Office Visit [facility] ADULT DENTAL [address] [place] [address] [place] [address] [place] [address] documented as of this encounter Visit Diagnoses Not on filedocumented in this encounter
--- OUTSIDE RECORDS SUMMARY | 2024-12-25 11:26 | XMS_ITS | Encounter Summary ---
Author Organization [employer] Address [address] [place] [address] 7 [place] [address] Care Team Providers Care Jewelry Drilling Machine Operator Name Role Phone Unavailable Primary Care Provider Unavailabl e Encounter Details Date Type Department Care Team (Late st Contact Info) Description 02/15/2023 Orders Only [facility] ADULT DENTAL [address] [place] [address] Betty Roche DDS [address] [place] [address] Social History Tobacco Use Types Packs/Day Years [...] AM EDT Office Visit [facility] ADULT DENTAL [address] [place] [address] [place] [address] [place] [address] [phone] documented as of this encounter Visit Diagnoses Not on filedocumented in this encounter
--- OUTSIDE RECORDS SUMMARY | 2024-12-25 11:26 | XMS_ITS | Encounter Summary ---
Author Organization [employer] Address [address] [place] [address] [address] [address] Care Team Providers Care Knot Borer Name Role Phone Unavailable Primary Care Provider Unavailabl e Encounter Details Date Type Department Care Team (Latest Contact Info) Description 10/28/[address] [facility] CONVERSIONS Dental, Provider, DDS Social [...] [facility]ULT [facility]ENTAL [address] [place] [address] [place] [address] [place] [address] documented as of this encounter Visit Diagnoses Not on filedocumented in this encounter
--- OUTSIDE RECORDS SUMMARY | 2024-12-25 11:26 | XMS_ITS | Clinical Summary ---
Author Organization [employer] Address [address] [place] [address] 7 [place] [address] Care Team Providers Care Husbandry Technician Name Role Phone Unavailable Primary Care Provider [...] Description 03/25/2025 10:00 AM EDT Office Visit [facility] ADULT DENTAL [address] [place], [place] [phone] [place]o [place] [address] [place] [address] Health Maintenance Due Date Last Done [...] Most Recently Relevant to Health Maintenance Insurance [facility] MEDICAID STAND ADULT
== END 2024-12-25 09:50 | disposition home or self-care (01) ==
LOC: HO.HOSX 09:49
PROVIDERS: PCP Internal Medicine; Visit Provider Orthopaedic Surgery
DX: M25.532 Pain in left wrist (principal); S52.572A Other intraarticular fracture of lower end of left radius, initial encounter for closed fracture; W18.30XA Fall on same level, unspecified, initial encounter; Y93.9 Activity, unspecified; Y92.9 Unspecified place or not applicable; Y99.9 Unspecified external cause status
CPT/HCPCS: 73110; 99212

== ENCOUNTER → 2024-12-25 10:15 | Outpatient (BNV) | payer OTHER, SELFPAY | PROVIDERS: PCP Internal Medicine; Visit Provider Radiology Diagnostic Radiology | DX: M25.532 Pain in left wrist (principal) | CPT/HCPCS: 73110 ==

== ENCOUNTER 2024-12-26 10:01 | Outpatient (RCR) | payer OTHER, SELFPAY ==
--- NOTE | 2024-11-14 16:18 | MHC.OT.EP ---
[address] [phone] Occupational Therapy Plan of Care Patient Name: Sada Hickey Date of Evaluation: 11/14/24 Diagnosis: L Distal radius fracture Pain Location: L wrist R shoulder Pain Score: 8 Pain Scale Used: Numeric (0 - 10) Aggravating Factors: Movement Alleviating Factors: Tylenol, ibuprofen - every 8 hrs Assessment: Pt is a 64 yr old R hand dominant female who fell and fractured her L distal radius when she slipped on snow/ ice about 2 mos ago. She reports she went to the ED and has been placed in a removable prefabricated orthoses ever since. 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 Pt presents today w/ decreased ROM, strength, and functional use of her L hand. Pt would benefit from skilled OT therapy to address these deficits and RPLOF. Frequency and Duration: The patient will be seen 2xs a week for 6 weeks Short Term Goals: Pt will report 3/20 pain w/ activity Pt will have 80 of pronation Pt will have 65 of pain free wrist flexion Medical Safety Director Goals: Pt will be able to use her L hand to carry grocery bags w/out difficulty Pt will have a dash score less than 25% Pt will report RTW w/ minimal restrctions Treatment Plan: Therapeutic Exercise Therapeutic Activity Home Exercise Program Splinting Neuro Re-ed Patient Education Desensitization/Sensory Re-ed Edema Control ADL Training Ultrasound NMES Iontophoresis Paraffin Fluidotherapy MHP Cold Packs Joint Mobilization Soft Tissue Mobilization Kinesiotaping Other (see comments) Electronically Signed By: Rosa White OTR/L Please Sign and return to therapist. Thank you once again for your referral.
--- NOTE | 2024-12-26 10:51 | MHC.OT.DC ---
[address] [phone] F: [phone] Occupational Therapy Discharge Note Patient Name: Sada Scherer Hickey Provider: Wanda Weaver Diagnosis: L Distal radius fracture Date of Surgery: Date of Evaluation: 11/14/24 Date of Discharge: Treatments to Date: 12 Cancellations to Date: No Shows to Date: Discharge Status: Achieved Goals Discharge Summary: Pt HAS MET HER GOALS OK TO D/CHARGE PT IN AGREEEMENT Sada was a pleasure to work with, Thank you for including me in her care Electronically Signed By: Rosa White OTR/L Reviewed/agree with student documentation: Therapist: Please Sign and return to therapist, thank you for your referral.
== END 2024-12-26 12:12 | disposition home or self-care (01) ==
LOC: HO.OT 10:01
PROVIDERS: PCP Internal Medicine; Visit Provider Orthopaedic Surgery
DX: S52.502D Unspecified fracture of the lower end of left radius, subsequent encounter for closed fracture with routine healing (principal)
CPT/HCPCS: 97110; 97140; 97166; 97535

== ENCOUNTER 2025-01-17 09:26 | Outpatient (REF) | payer OTHER, SELFPAY ==
--- OUTSIDE RECORDS SUMMARY | 2025-01-17 09:44 | XMS_ITS | Clinical Summary ---
Author Organization [employer] Address [address] [place] [address] 7 [place] [address] Care Team Providers Care Piercing Machine Operator Name Role Phone Unavailable Primary [...] Encounters Date Type Department Care Team Description 12/26/2024 11:30 AM EDT Office Visit [facility] ADULT DENTAL [address] [place] [address] Berto-Gabriel Pierrefemia, DDS Open fracture of tooth, initial encounter (Primary Dx); Excessive attrition of teeth, limited to enamel from Last 3 Months Social History Tobacco [...] Description 03/25/2025 10:00 AM EDT Office Visit [facility] ADULT DENTAL [address] [place], [place] [phone] Glo [place] [address] [place], [place] [phone] Health Maintenance Due Date Last Done Comments CT Colonography 1960 Colonoscopy 1960 Colorectal Cancer Screening 1960 Depression Screening 1960 FIT DNA/Cologuard 1960 FIT 1960 FOBT 1960 HIV Screening 1960 SDOH Screening 1960 Sigmoidoscopy 1960 Disability Screening 1960 Alcohol/Substance Use Screening 1972 Hepatitis C [...] 09/17/2024, 0 2024, 07/06/2023, Additional history exists Dental X-Ray: Bitewings 09/18/2025 09/17/19 25, 11/30/2023, 02/22/2023, Additional history exists Tobacco Screening 12/26/2025 12/26/2024 Dental X-Ray: Full Mouth 11/30/2026 024, 10/28/2021, [...] patient's age to complete this topic Meningococcal B Vaccine Aged Out No l onger eligible based on patient's age to complete [...] Procedure Name Priority Date/Time Associated Diagnosis Comments CASE PRESENTATION, DETAILED AND EXTENSIVE TREATMENT PLANNING Routine 12/26/2024 11:30 AM EDT Open fracture of tooth, initial encounter Excessive attrition of teeth, limited to enamel INTRAORAL - PERIAPICAL FIRST RADIOGRAPHIC IMAGE Routine 12/26/2024 11:30 AM EDT Open fracture of tooth, initial encounter Excessive attrition of teeth, limited to enamel LIMITED ORAL EVALUATION - PROBLEM FOCUSED Routine 12/26/2024 11:30 AM EDT Open fracture of tooth, initial encounter Excessive attrition of teeth, limited to enamel PROPHYLAXIS - ADULT Routine 09/17/2024 9 :00 [...] Most Recently Relevant to Health Maintenance [facility]
== END 2025-01-17 09:27 | disposition home or self-care (01) ==
LOC: HO.MAMMO 09:26
PROVIDERS: PCP Internal Medicine; Visit Provider Internal Medicine
DX: Z12.31 Encounter for screening mammogram for malignant neoplasm of breast (principal)
CPT/HCPCS: 77063; 77067

== ENCOUNTER → 2025-01-17 09:45 | Outpatient (BNV) | payer OTHER, SELFPAY | PROVIDERS: PCP Internal Medicine; Visit Provider Internal Medicine | DX: Z12.31 Encounter for screening mammogram for malignant neoplasm of breast (principal) | CPT/HCPCS: 77063; 77067 ==

== ENCOUNTER 2025-01-27 10:27 | Outpatient (AMB) | payer OTHER, SELFPAY ==
[2025-01-27 10:41] VITALS: BMI 38.3
--- NOTE | 2025-01-27 10:41 | MHC.AMNUTRGE ---
VS Expanded 01/27/25 10:41 Height 5 ft 4 in Weight 222 lb 14.197 oz BMI 38.3 Intake Visit Reasons: Obesity Allergies lisinopril Adverse Reaction (Intermediate, Verified 12/25/24 09:53) cough nifedipine Adverse Reaction (Intermediate, Verified 12/25/24 09:53) Chest pain/headache Nutrition Presentation Details: Pt presents for MNT f/u for obesity Food frequency: -dairy: 2-3c/d -fish - 2 x/wk -vegetables: including in smoothies 2 serving/daily d/t dislikes -fruits :3/d challenges: portion control during family gatherings/frequent gatherings physical activity: ADL BS Monitoring Most Recent Diabetes Results: No Data to Display [facility] Medical History (Updated 11/11/24 @ 11:06 by Krish Villa MD) Morbid obesity Lipoma of right upper extremity Cough LIBRA (obstructive sleep apnea) Obesity (BMI 35.0-39.9 without comorbidity) Elevated random blood glucose level Morbid obesity with BMI of 40.0-44.9, adult Blurred vision Leukocytosis Bunion of great toe of left foot Foot pain, bilateral Obesity Strain of left Achilles tendon, initial encounter Hypertension, essential Uncontrolled hypertension Chronic GERD Surgical History Hx of colonoscopy History of partial hysterectomy Family History (Reviewed 11/11/24 @ 10:48 by Christi Mirza [facility]) Mother Hypotension Father Multiple myeloma Father No problems noted. Mother Alzheimer's disease Dementia Daughter No problems noted. 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 Used wt : 104 kg ( 98.6 kg on 05/10/23) , 99kg (10/2023), 101 kg (11/12), 02/12) Est kcal as per MSJ: 2176-250/500 = 1676- 1926 (40% carb, 30% fat/prot) Est fluid needs:2600 ml/d (25 ml/kg bw) Rec fiber: increase to 8-10 g per day and gradually increase to 25 g/d or as tolerated Rec Na: < 2000 mg /d Educate patient on: (R= Reviewed, V = verbalizes understanding N/R= Needs review N/A= not applicable) Food sources of carbohydrates and serving adequate serving sizes : R V Difference between complex carbohydrates and simple carbohydrates, role of fiber: R Differences between fats (MUFA/PUFA/saturated fats, trans fats) and food sources of various fats: R , basic low fat concepts Food sources of sodium and salt and healthy modifications for heart health and kidney health: R How to interpret food labels: R Healthy Plate method concept: R Physical activity: benefits and precaution: V Patient Instructions: Practice Mindful eating at gathering Choose lower fat food options , see list of options Engage in physical activity, walk 40 minutes at least 3 times a week unless otherwise specified by your doctor. Coding Level of Care Code Nutr Indiv Subseq (56850) Diagnoses Obesity (BMI 35.0-39.9 without comorbidity) E66.9 Time Spent (min) 30
--- OUTSIDE RECORDS SUMMARY | 2025-01-27 11:41 | XMS_ITS | Clinical Summary ---
Author Organization [employer] Address [address] [place] [address] [address] [address] Care Team Providers Care Dry Charge Process Attendant Name Role Phone Unavailable Primary Care Provider [...] Description 12/26/2024 11:30 AM EDT Office Visit [facility] ADULT DENTAL [address] [place] [address] Betty Roche, DDS Open fracture of tooth, initial encounter [...] 10:00 AM EDT Office Visit [facility] ADULT DENTAL [address] [place], [place] [phone] [place] [address] [place] [address] [phone] Health Maintenance Due Date Last Done Comments [...] Vaccine ( season) 2024 08/06/2021, 11/26/2020, 11/05/2020 Dental Oral Exam 03/18/2025 09/17/2024, 06/2024, 02/22/2023, Additional history exists Dental Prophylaxis 03/18/2025 09/17/2024, 0 2024, 07/06/2023, Additional history exists Influenza Vaccine (Season Ended) 2025 Dental X-Ray: Bitewings 09/18/2025 09/17/19 25, 11/30/2023, [...]
== END 2025-01-27 11:10 | disposition home or self-care (01) ==
LOC: HO.ENCR 10:27
PROVIDERS: PCP Internal Medicine; Visit Provider Dietitian, Registered
DX: E66.9 Obesity, unspecified (principal)

== ENCOUNTER → 2025-01-27 10:27 | Outpatient (BNVA) | payer OTHER, SELFPAY | PROVIDERS: PCP Internal Medicine; Visit Provider Dietitian, Registered | DX: E66.9 Obesity, unspecified (principal); Z68.38 Body mass index [BMI] 38.0-38.9, adult; Z71.3 Dietary counseling and surveillance | CPT/HCPCS: 97803 ==

== ENCOUNTER 2025-06-04 07:38 | Outpatient (AMB) | payer MEDICARE, MEDICAID, SELFPAY ==
[2025-06-04 07:40] VITALS: BP 128/82; PULSE 65; O2SAT 97; BMI 39.5
--- NOTE | 2025-06-04 07:40 | A.OFFPC_ITS ---
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 Required: No Accompanied by: Self / Same As Patient Allergies lisinopril Adverse Reaction (Intermediate, Verified 06/04/25 07:56) cough nifedipine Adverse Reaction (Intermediate, Verified 06/04/25 07:56) Chest pain/headache Medication List - Last Reconciled 06/04/25 by Daria Gambino MD acetaminophen 500 mg PO BID PRN 90 days [Adult Pull UPs Use 3 diapers per day] amlodipine 5 mg PO DAILY 90 days aspirin 81 mg PO DAILY 90 days atenolol 100 mg PO DAILY 90 days [Blood pressure monitor As directed] diclofenac sodium 1% (Arthritis Pain (diclofenac)) 2 grams topical QID PRN 30 days Grab bar As directed omeprazole 40 mg PO DAILY 90 days polyethylene glycol 3350 (Gavilax) 17 grams PO DAILY PRN spironolacton-hydrochlorothiaz 25-25 mg 1 tab PO DAILY 90 days wheat dextrin (Benefiber Healthy Shape) 15 grams PO DAILY 90 days Tobacco use date assessed: 10/01/24 Fall risk assessment: No Falls in past year Last assessed Fall Risk: 06/04/25 Dental Screening Dental Screen Date: 10/01/24 HPI HPI Comments History of Present Illness Details The patient is a 65-year-old female presenting for a physical examination and preventative care. She has a history of hyperglycemia, with the last laboratory results showing a fasting blood glucose level of 160 mg/dL at the beginning of the year. She is considered prediabetic, with a body mass index (BMI) of 39.5, which is close to the threshold for morbid obesity. The patient reports a history of depression, with a PHQ-9 score of 5, indicating mild depression that does not require treatment at this time. She has external and internal hemorrhoids, as noted during her colonoscopy last year, which showed normal colonic mucosa. In terms of preventative care, she received a Tdap vaccine in 2021 and requires a pneumococcal vaccine due to her age. She had a mammogram in December of this year, which was normal, and a colonoscopy last year, with the next one scheduled for 2033. A bone density scan has not been performed and will be ordered if not previously done. [facility] Medical History (Updated 06/04/25 @ 08:24 by Daria Gambino MD) Morbid obesity Lipoma of right upper extremity Cough LIBRA (obstructive sleep apnea) Obesity (BMI 35.0-39.9 without comorbidity) Elevated random blood glucose level Morbid obesity with BMI of 40.0-44.9, adult Blurred vision Leukocytosis Bunion of great toe of left foot Foot pain, bilateral Obesity Strain of left Achilles tendon, initial encounter Hypertension, essential Uncontrolled hypertension Chronic GERD Surgical History Hx of colonoscopy History of partial hysterectomy Family History (Updated 06/04/25 @ 08:05 by Daria Gambino MD) Mother Hypotension Father Multiple myeloma Father No problems noted. Mother Alzheimer's disease Dementia Daughter No problems noted. 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 1. Little interest or pleasure in doing things: several days 2. Feeling down, depressed, or hopeless: several days 3. Trouble falling or staying asleep, or sleeping too much: several days 4. Feeling tired or having little energy: several days 5. Poor appetite or overeating: several days 6. Feeling bad about yourself - or that you are a failure or have let yourself or your family down: not at all 7. Trouble concentrating on things, such as reading the newspaper or watching television: not at all 8. Moving or speaking so slowly that other people could have noticed. Or the opposite - being so fidgety or restless that you have been moving around a lot more than usual: not at all 9. Thoughts that you would be better off or of hurting yourself in some way: not at all Total score: 5 Depression Screening Interpretation: Positive Depression Screening Follow-up: Existing condition and Follow-up Visit Requested Depression Screening Done: Yes 32917 - PHQ-9 Billing: Yes Source: Developed by Drs. Luis F Briggs, Brooke Elias, Aydin Brady and colleagues, with an educational guilherme from [employer]. Thrive Questionnaire Date Thrive assessed: 10/01/24 I am a: Patient What is your living situation today?: I have a steady place to live Within the past 12 months, did the food you bought not last and you didn't have the money to get more?: I choose not to answer this question Within the past 12 months, did you worry whether your food would run out before you got money to buy more?: I choose not to answer this question Do you have trouble paying for medicines?: I choose not to answer this question Do you have trouble getting transportation to medical appointments?: No Do you have trouble paying your heating and electricity bill?: I choose not to answer this question Do you have trouble taking care of your child, family member or friend?: No Do you have trouble with day-to-day activities such as bathing, preparing meals, shopping, managing finances, etc.?: No Are you currently unemployed and looking for a job?: No Are you interested in more education?: I choose not to answer this question Please select the resources that you would like help with: Utilities Currently or been in a relationship where the following occur: No concerns reported THRIVE Score: 0 AUDIT C Alcohol Use Questionnaire (AUDIT-C) 1. How often do you have a drink containing alcohol?: Never 3. How often do you have six or more drinks on one occasion?: Never Total Score: 0 Score Reviewed/Action Taken: No EMILIE-7 AMB Questionnaire EMILIE-7 Date EMILIE - 7 assessed: 10/01/24 Feeling nervous, anxious, or on edge: 0 = Not at all Not being able to stop or control worryin = Several days Worrying too much about different things: 1 = Several days Trouble relaxin = Several days Being so restless that it is hard to sit still: 0 = Not at all Becoming easily annoyed or irritable: 1 = Several days Feeling afraid as if something awful might happen: 0 = Not at all Total EMILIE-7 score (0-4 normal; 5-9 mild; 10-14 moderate; 15-21 severe): 4 Source: Developed by Drs. Luis F Briggs, Brooke Elias, Aydin Brady and colleagues, with an educational guilherme from [employer]. EMILIE-7 Assessment Billing EMILIE-7 Assessment Tool: EMILIE-7 Assessment 08716 Review of Systems Const All systems reviewed & are unremarkable except as noted in HPI and below Card Denies chest pain at rest, Denies chest pain with activity, Denies edema, Denies irregular heart rhythm, Denies claudication, Denies dyspnea, Denies dyspnea on exertion, Denies orthopnea, Denies paroxysmal nocturnal dyspnea and Denies slow heart rate Resp Denies cough, Denies dyspnea and Denies dyspnea on exertion GI Denies abdominal pain, Denies change in bowel habits, Denies excessive flatus, Denies nausea and Denies vomiting Skin/Breast Denies bleeding lesions, Denies changing lesions and Denies rash Physical exam (Primary Care) Vital Signs: Last Vital Signs Pulse 65 06/04/25 07:40 BP 128/82 06/04/25 07:40 Pulse Ox 97 06/04/25 07:40 Oxygen Delivery Method Room Air 06/04/25 07:40 BMI result Body Mass Index 39.5 BMI Assessment/Plan discussion: High BMI High, discussed plan: lifestyle, weight reduction, dietary and physical activity Tobacco/Smoking Status: Tobacco use Status Tobacco use date assessed 10/01/24 06/04/25 07:46 Patient Tobacco Use Status Never used Tobacco 06/04/25 07:46 Tobacco use type Cigarette 06/04/25 07:46 e-Cigarette/Vaping Use Never Used 06/04/25 07:46 PHQ-9: PHQ-9 Score PHQ-9: Total score 5 06/04/25 07:46 Depression Screening Interpretation: Positive Depression Screening Follow-up: Existing condition and Follow-up Visit Requested Thrive Assessment: Date of Thrive Assessment Date Thrive assessed 10/01/24 06/04/25 07:46 Currently or been in a relationship where the following occur: No concerns reported HENMT Head: Yes normal to inspection, Yes normocephalic and Yes atraumatic Ears: external ears normal Eyes General: appearance normal, both eyes and all related structures Eyelids: Yes eyelids normal Conjunctivae: conjunctivae normal Neck Neck: Yes normal visual inspection and Yes supple Resp Effort & Inspection: normal respiratory effort Auscultation: clear to auscultation bilaterally Cardio Jugular venous distension: no JVD Rate: regular rate Rhythm: regular rhythm Heart sounds: S1 normal heart sound present and S2 normal heart sound present GI Inspection: Yes normal to inspection Palpation (GI): Soft to palpation and nontender Auscultation: normal bowel sounds Skin General skin exam: no rashes or lesions noted Neuro General: no focal motor deficits Extrem General: Yes full ROM Psych Appearance: grossly normal Coding Level of Care Code Est Pt Level 3 (02807) Est Pt Prev Care >65y(91188) Diagnoses Physical exam Z00.00 Syncope R55 Epigastric pain R10.13 Chest pain R07.9 Mild recurrent major depression F33.0 Additional Codes EMILIE-7 Assessment Billing - EMILIE-7 Assessment Tool: EMILIE-7 Assessment 18511 ([id number]) PHQ-9 - 92652 - PHQ-9 Billing: Yes ([id number]) Time Spent (min) 33 Assessment & Plan Assessment & Plan (1) Physical exam: Code(s): Z00.00 - Encounter for general adult medical examination without abnormal findings Category: Medical (2) Syncope: Code(s): R55 - Syncope and collapse Category: Medical (3) Epigastric pain: Code(s): R10.13 - Epigastric pain Category: Medical (4) Chest pain: Code(s): R07.9 - Chest pain, unspecified Category: Medical (5) Mild recurrent major depression: Code(s): F33.0 - Major depressive disorder, recurrent, mild Category: Medical Plan Plan 1. Encounter for general adult medical examination without abnormal findings Z00.00 The patient requires a pneumococcal vaccine due to her age but she declines it today. She also declines flu vaccine today. A bone density scan will be ordered if not previously done. Routine screenings such as mammograms and colonoscopies are up to date. 2. Major depressive disorder, recurrent, mild F33.0 HCC 59 The patient has mild depression with a PHQ-9 score of 5. No treatment is required at this time, but monitoring for any changes in symptoms is advised. 3. Epigastric pain Upper GI series ordered. 4. Chest pain EKG ordered. 5. Syncope Head CT order Orders: Orders ECG 12 lead EKG Today R55 - Syncope and collapse Lipid Panel Today E78.5 - Hyperlipidemia, unspecified Comprehensive Surprise. Panel Fast Today I10 - Essential (primary) hypertension XR DEXA axial skeleton Today Z78.0 - Asymptomatic menopausal state CT head/brain wo IV con Today R55 - Syncope and collapse FL upper GI series Today R10.13 - Epigastric pain
--- OUTSIDE RECORDS SUMMARY | 2025-06-04 07:40 | XMS_ITS | Encounter Summary ---
Author Organization [facility] [facility] Address [address] [place] [address] [address] [place] [address] Care Team Providers Care Instant Printer Operator Name Role Phone Unavailable Primary Care Provider Unavailabl e Encounter Details Date Type Department Care Team (Late st Contact Info) Description 02/15/2023 Orders Only [facility] ADULT DENTAL [address] [place] [address] Betty Roche DDS [address] [place] [address] Social History Tobacco Use Types Packs/Day Years [...] Care Team (Late st Contact Info) Description 10/09/2025 12:45 PM EST Office Visit [facility] ADULT DENTAL [address] [place] [address] Heidi Anthony documented as of this encounter Visit Diagnoses Not on filedocumented in this encounter
--- OUTSIDE RECORDS SUMMARY | 2025-06-04 07:40 | XMS_ITS | Clinical Summary ---
Author Organization [employer] Address [address] [place] [address] [address] [place] [address] Care Team Providers Care Farmer And Grazier Name Role Phone Unavailable Primary Care Provider [...] by mouth in the morning. 3 Active predniSONE (Deltasone) 20 MG tablet Take 2 tablets by mouth Once per day. 5 Active triamcinolone (Kenalog) 0.025 % cream APPLY TO AFFECTED AREA 3 TIMES PER DAY FOR 5 DAYS 5 Active Active Problems Problem Noted Date Diagnosed Date Missing teeth, acquired 07/06/2023 Encounters Date Type Department Care Team Description 04/07/2025 2:00 PM EDT Office Visit [facility] ADULT DENTAL [address] [place] [address] Glo Cam[place] Encounter for dental examination (Primary Dx); Dental calculus from Last 3 Months Social History Tobacco [...] Sign Reading Time Taken Comments Blood Pressure 122/66 04/07/2025 2:05 PM EDT Pulse 64 04/07/2025 2:05 PM EDT Temperature - - Respiratory Rate - - Oxygen Saturation - - Inhaled Oxygen Concentration - - Weight - - Height - - Body Mass Index - - Plan of Treatment Upcoming Encounters Date Type Department Care Team (Late st Contact Info) Description 10/09/2025 12:45 PM EST Office Visit [facility] ADULT DENTAL [address] [place] [address] Heidi Anthony Health Maintenance Due Date Last Done Comments CT Colonography 1960 Colonoscopy 1960 Colorectal Cancer Screening 1960 Depression Screening 1960 FIT DNA/Cologuard 1960 FIT 1960 FOBT 1960 SDOH Screening 1960 Sigmoidoscopy 1960 Alcohol/Substance Use Screening 1972 Hepatitis C Screening 02/19/1978 Pap Smear 02/19/1981 Cervical Cancer Screening 02/19/1990 HPV/Cotest 02/19/1990 Mammogram 2000 Pneumococcal Vaccine: 50+ Years (1 of 1 - PCV) 02/19/2010 Zoster Vaccines (1 of 2) 02/19/2010 COVID-19 Vaccine (4 - season) 2025 08/06/2021, 11/26/2020, 11/05/2020 Influenza Vaccine (#1) 2025 Dental X-Ray: Bitewings 09/18/2025 09/17/19 25, 11/30/2023, 02/22/2023, Additional history exists Dental Oral Exam 10/09/2025 04/07/2025, , 11/30/2023, Additional history exists Dental Prophylaxis 10/09/2025 04/07/2025, 0 09/17/2024, 2024, Additional history exists Tobacco Screening 04/07/2026 04/07/2025 Dental X-Ray: Full Mouth 11/30/2026 024, 10/28/2021, [...] Procedure Name Priority Date/Time Associated Diagnosis Comments PERIODIC ORAL EVALUATION - ESTABLISHED PATIENT Routine 04/07/2025 2:00 PM EDT CASE PRESENTATION, DETAILED AND EXTENSIVE TREATMENT PLANNING Routine 04/07/2025 2:00 PM EDT PROPHYLAXIS - ADULT Routine 04/07/2025 2 :00 PM EDT BITEWINGS - 4 RADIOGRAPHIC IMAGES Routine 09/17/2024 9:00 AM EST INTRAORAL - COMPLETE SERIES OF RADIOGRAPHIC IMAGES Routine 11/30/2023 9:30 AM EDT Encounter for dental examination from Last 3 Months or Most Recently Relevant to Health Maintenance Insurance [facility] MEDICAID STAND ADULT
--- OUTSIDE RECORDS SUMMARY | 2025-06-04 07:40 | XMS_ITS | Encounter Summary ---
Author Organization [employer] Address [address] [place] [address] [address] [place] [address] Care Team Providers Care Custom Garment Designer Name Role Phone Unavailable Primary Care Provider Unavailabl e Encounter Details Date Type Department Care Team (Latest Contact Info) Description 03/05/2019 Abstract [facility] CONVERSIONS Dental, Provider, DDS Social [...] Description 10/09/2025 12:45 PM EST Office Visit [facility] ADULT DENTAL [address] [place] [address] Heidi Anthony documented as of this encounter Visit Diagnoses Not on filedocumented in this encounter
--- OUTSIDE RECORDS SUMMARY | 2025-06-04 07:40 | XMS_ITS | Encounter Summary ---
Author Organization [employer] [facility] Address [address] [place] [address] [address] [place] [address] Care Team Providers Care Glove Printer Name Role Phone Unavailable Primary Care Provider Unavailabl e Encounter Details Date Type Department Care Team (Latest Contact Info) Description 10/28/2021 Abstract [facility] CONVERSIONS Dental, Provider, DDS Social History [...] Description 10/09/2025 12:45 PM EST Office Visit [facility] ADULT DENTAL [address] [place] [address] Heidi Anthony documented as of this encounter Visit Diagnoses Not on filedocumented in this encounter
--- OUTSIDE RECORDS SUMMARY | 2025-06-04 07:40 | XMS_ITS | Encounter Summary ---
Author Organization [employer] Address [address] [place] [address] [address] [place] [address] Care Team Providers Care Batch Plant Operator Name Role Phone Unavailable Primary Care Provider Unavailabl e Encounter Details Date Type Department Care Team (Latest Contact Info) Description 05/27/2020 Abstract [facility] CONVERSIONS Dental, Provider, DDS Social [...] Description 10/09/2025 12:45 PM EST Office Visit [facility] ADULT DENTAL [address] [place] [address] Heidi Anthony documented as of this encounter Visit Diagnoses Not on filedocumented in this encounter
== END 2025-06-04 08:12 | disposition home or self-care (01) ==
PROVIDERS: PCP Internal Medicine; Visit Provider Internal Medicine
DX: Z00.00 Encounter for general adult medical examination without abnormal findings (principal); R55 Syncope and collapse; R10.13 Epigastric pain; R07.9 Chest pain, unspecified; F33.0 Major depressive disorder, recurrent, mild

== ENCOUNTER → 2025-06-04 07:38 | Outpatient (BNVA) | payer MEDICAID, SELFPAY | PROVIDERS: PCP Internal Medicine; Visit Provider Internal Medicine | DX: Z00.00 Encounter for general adult medical examination without abnormal findings (principal); R73.9 Hyperglycemia, unspecified; R73.03 Prediabetes; E66.9 Obesity, unspecified; K64.8 Other hemorrhoids; K64.4 Residual hemorrhoidal skin tags; R55 Syncope and collapse; R10.13 Epigastric pain; R07.9 Chest pain, unspecified; F33.0 Major depressive disorder, recurrent, mild; Z68.39 Body mass index [BMI] 39.0-39.9, adult | CPT/HCPCS: 96127; 99212; 99397 ==

== ENCOUNTER 2025-06-18 09:24 | Outpatient (AMB) | payer OTHER, SELFPAY ==
[2025-06-18 09:39] VITALS: BMI 40.1
--- NOTE | 2025-06-18 09:39 | A.OFFVIS_ITS ---
VS Expanded 06/18/25 09:39 Height 5 ft 4 in Weight 233 lb 14.567 oz BMI 40.1 Intake Visit Reasons: obesity Allergies lisinopril Adverse Reaction (Intermediate, Verified 06/04/25 07:56) cough nifedipine Adverse Reaction (Intermediate, Verified 06/04/25 07:56) Chest pain/headache Nutrition Presentation Details: Pt presents for MNT for obesity Pt acknowledge dietary indiscretion, particularly at night time with increased intake of sweets Breakfast: Vegetable/fruit shake L: sandwich, water dinner at 6:30 rice/beans /meat /plantain- large portions snack : cookies/pastries - worried about sister with dementia in another state and traveling needs [facility] Medical History Morbid obesity Lipoma of right upper extremity Cough LIBRA (obstructive sleep apnea) Obesity (BMI 35.0-39.9 without comorbidity) Elevated random blood glucose level Morbid obesity with BMI of 40.0-44.9, adult Blurred vision Leukocytosis Bunion of great toe of left foot Foot pain, bilateral Obesity Strain of left Achilles tendon, initial encounter Hypertension, essential Uncontrolled hypertension Chronic GERD Surgical History Hx of colonoscopy History of partial hysterectomy Family History (Updated 06/04/25 @ 08:05 by Daria Gambino MD) Mother Hypotension Father Multiple myeloma Father No problems noted. Mother Alzheimer's disease Dementia Daughter No problems noted. 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 Used wt : 104 kg ( 98.6 kg on 05/10/23) , 99kg (10/2023), 101 kg (11/12), 02/12), 105 kg (07/15) Est kcal as per MSJ: 2176-250/500 = 1676- 1926 (40% carb, 30% fat/prot) Est fluid needs:2600 ml/d (25 ml/kg bw) Rec fiber: increase to 8-10 g per day and gradually increase to 25 g/d or as tolerated Rec Na: < 2000 mg /d Educate patient on: (R= Reviewed, V = verbalizes understanding N/R= Needs review N/A= not applicable) * Food sources of carbohydrates and serving adequate serving sizes : R V * Difference between complex carbohydrates and simple carbohydrates, role of fiber: R * Differences between fats (MUFA/PUFA/saturated fats, trans fats) and food sources of various fats: R , basic low fat concepts * Food sources of sodium and salt and healthy modifications for heart health and kidney health: R * How to interpret food labels: R * Healthy Plate method concept: R * Physical activity: benefits and precaution: V Patient Instructions: Reduce starch at dinner to 1 cup cooked Reduce bedtime snack to no more than 150 calories - read food labels , adhere to recommendation read food labels and measure food portions Coding Level of Care Code Nutr Indiv Subseq (72815) Diagnoses Obesity (BMI 35.0-39.9 without comorbidity) E66.9 Time Spent (min) 30
--- OUTSIDE RECORDS SUMMARY | 2025-06-18 10:56 | XMS_ITS | Encounter Summary ---
Author Organization [employer] Address [address] [place] [address] [address] [place] [address] Care Team Providers Care Carbon Rod Inserter Name Role Phone Unavailable Primary Care Provider Unavailabl e Encounter Details Date Type Department Care Team (Latest Contact Info) Description 05/27/2020 Abstract [facility] CONVERSIONS Dental, Provider, DDS Social History [...] Description 10/09/2025 12:45 PM EST Office Visit [facility] ADULT DENTAL [address] [place] [address] Heidi Anthony documented as of this encounter Visit Diagnoses Not on filedocumented in this encounter
--- OUTSIDE RECORDS SUMMARY | 2025-06-18 10:56 | XMS_ITS | Encounter Summary ---
Author Organization [employer] [facility] Address [address] [place] [address] [address] [place] [address] Care Team Providers Care Manager Gas Name Role Phone Unavailable Primary Care Provider Unavailabl e Encounter Details Date Type Department Care Team (Late st Contact Info) Description 02/15/2023 Orders Only [facility] ADULT DENTAL [address] [place] [address] Betty Roche DDS [address] [place] [address] Social History Tobacco Use Types Packs/Day Years [...] Description 10/09/2025 12:45 PM EST Office Visit [facility] ADULT DENTAL [address] [place] [address] Heidi Anthony documented as of this encounter Visit Diagnoses Not on filedocumented in this encounter
--- OUTSIDE RECORDS SUMMARY | 2025-06-18 10:56 | XMS_ITS | Encounter Summary ---
Author Organization [employer] Address [address] [place] [address] [address] [place] [address] Care Team Providers Care Supervisor Telephone Information Name Role Phone Unavailable Primary Care Provider Unavailabl e Encounter Details Date Type Department Care Team (Latest Contact Info) Description 03/05/2019 Abstract [facility] CONVERSIONS Dental, Provider, DDS Social History [...] Description 10/09/2025 12:45 PM EST Office Visit [facility] ADULT DENTAL [address] [place] [address] Heidi Anthony documented as of this encounter Visit Diagnoses Not on filedocumented in this encounter
--- OUTSIDE RECORDS SUMMARY | 2025-06-18 10:56 | XMS_ITS | Clinical Summary ---
Author Organization [employer] Address [address] [place] [address] [address] [place] [address] Care Team Providers Care Silver Steward Name Role Phone Unavailable Primary Care Provider [...] Description 04/07/2025 2:00 PM EDT Office Visit [facility] ADULT DENTAL [address] [place] [address] [place] Encounter for dental examination (Primary [...] Description 10/09/2025 12:45 PM EST Office Visit [facility] ADULT DENTAL [address] [place] [address] Heidi Anthony Health Maintenance Due Date Last [...]
--- OUTSIDE RECORDS SUMMARY | 2025-06-18 10:56 | XMS_ITS | Encounter Summary ---
Author Organization [employer] [facility] Address [address] [place] [address] [address] [place] [address] Care Team Providers Care Appellate Court Clerk Name Role Phone Unavailable Primary Care Provider Unavailabl e Encounter Details Date Type Department Care Team (Latest Contact Info) Description 10/28/2021 Abstract [facility] CONVERSIONS Dental, Provider, DDS Social History [...] Description 10/09/2025 12:45 PM EST Office Visit [facility] ADULT DENTAL [address] [place] [address] Heidi Anthony documented as of this encounter Visit Diagnoses Not on filedocumented in this encounter
== END 2025-06-18 10:13 | disposition home or self-care (01) ==
LOC: HO.ENCR 09:25
PROVIDERS: PCP Internal Medicine; Visit Provider Dietitian, Registered
DX: E66.9 Obesity, unspecified (principal)

== ENCOUNTER → 2025-06-18 09:24 | Outpatient (BNVA) | payer OTHER, SELFPAY | PROVIDERS: PCP Internal Medicine; Visit Provider Dietitian, Registered | DX: E66.9 Obesity, unspecified (principal); Z68.41 Body mass index [BMI] 40.0-44.9, adult; Z71.3 Dietary counseling and surveillance | CPT/HCPCS: 97803 ==

== ENCOUNTER 2025-08-19 08:35 | Outpatient (REF) | payer OTHER, SELFPAY ==
--- NOTE | 2025-08-19 08:42 | ECG_ITS ---
Test Reason : syncope Blood Pressure : */* mmHG Vent. Rate : 85 BPM Atrial Rate : 85 BPM P-R Int : 148 ms QRS Dur : 74 ms QT Int : 394 ms P-R-T Axes : 58 60 54 degrees QTcB Int : 468 ms Normal sinus rhythm with sinus arrhythmia Normal ECG When compared with ECG of 17-Dec-2022 10:22, No significant change was found Referred By: Daria Gambino Electronically Signed By: PAIGE OLIVER
[2025-08-19 09:45] LABS: Alanine Aminotransferase 29 U/L (0-31); Albumin Level 4.4 g/dL (3.5-5.0); Alkaline Phosphatase 103 U/L (39-117); Anion Gap 11 (12-20); Aspartate Amino Transferase 27 U/L (5-31); Blood Urea Nitrogen 14 mg/dL (9-16); Calcium 9.3 mg/dL (8.4-10.2); Carbon Dioxide 27 mmol/L (22-29); Chloride 105 mmol/L (96-108); Cholesterol 143 mg/dL (<200); Estimated Glomerular Filt Rate > 60; HDL Cholesterol 50 mg/dL (>40); Potassium 3.6 mmol/L (3.3-5.1); Sodium 139 mmol/L (135-145); Total Protein 8.1 g/dL (6.5-8.0); Triglycerides 115 mg/dL (<150)
--- OUTSIDE RECORDS SUMMARY | 2025-08-19 10:24 | XMS_ITS | Encounter Summary ---
Author Organization [employer] Address [address] [place] [address] [address] [place] [address] Care Team Providers Care Diesel Fitter Mechanic Name Role Phone Unavailable Primary Care Provider Unavailabl e Encounter Details Date Type Department Care Team (Latest Contact Info) Description 03/05/2019 Abstract [facility] CONVERSIONS Dental, Provider, DDS Social [...] Description 10/09/2025 12:45 PM EST Office Visit [facility] ADULT DENTAL [address] [place] [address] Heidi Anthony documented as of this encounter Visit Diagnoses Not on filedocumented in this encounter
--- OUTSIDE RECORDS SUMMARY | 2025-08-19 10:24 | XMS_ITS | Encounter Summary ---
Author Organization [facility] Address [address] [place] [address] [address] [place] [address] Care Team Providers Care Board Certified Behavioral Analyst Name Role Phone Unavailable Primary Care Provider Unavailabl e Encounter Details Date Type Department Care Team (Late st Contact Info) Description 02/15/2023 Orders Only [facility] ADULT DENTAL [address] [place] [address] Betty Roche DDS [address] [place] [address] Social History Tobacco Use Types Packs/Day Years [...] 10/09/2025 12:45 PM EST Office Visit [facility] ADULT DENTAL [address] [place] [address] Heidi Anthony documented as of this encounter Visit Diagnoses Not on filedocumented in this encounter
--- OUTSIDE RECORDS SUMMARY | 2025-08-19 10:24 | XMS_ITS | Clinical Summary ---
Author Organization [employer] Address [address] [place] [address] [address] [place] [address] Care Team Providers Care Telephone Station Installer Name Role Phone Unavailable Primary Care Provider [...] 10/09/2025 12:45 PM EST Office Visit [facility] ADULT DENTAL [address] [place] [address] Heidi Anthony Health Maintenance Due Date Last [...] of 2) 02/19/2010 COVID-19 Vaccine ( season) 2025 08/06/2021, 11/26/2020, 11/05/2020 Influenza Vaccine [...] Associated Diagnosis Comments PROPHYLAXIS - ADULT Routine 04/07/2025 2 :00 PM EDT PERIODIC ORAL EVALUATION - ESTABLISHED PATIENT Routine 04/07/2025 2:00 PM EDT BITEWINGS - 4 RADIOGRAPHIC IMAGES Routine 09/17/2024 9:00 AM EST INTRAORAL - COMPLETE SERIES OF RADIOGRAPHIC IMAGES Routine 11/30/2023 9:30 AM EDT Encounter for dental examination from Last 3 Months or Most Recently Relevant to Health Maintenance Insurance [facility] MEDICAID STAND ADULT
--- OUTSIDE RECORDS SUMMARY | 2025-08-19 10:24 | XMS_ITS | Encounter Summary ---
Author Organization [employer] [facility] Address [address] [place] [address] [address] [place] [address] Care Team Providers Care Messenger Floorperson Name Role Phone Unavailable Primary Care Provider Unavailabl e Encounter Details Date Type Department Care Team (Latest Contact Info) Description 10/28/2021 Abstract [facility] CONVERSIONS Dental, Provider, DDS [...] Description 10/09/2025 12:45 PM EST Office Visit [facility] ADULT DENTAL [address] [place] [address] Heidi Anthony documented as of this encounter Visit Diagnoses Not on filedocumented in this encounter
--- OUTSIDE RECORDS SUMMARY | 2025-08-19 10:24 | XMS_ITS | Encounter Summary ---
Author Organization [employer] Address [address] [place] [address] [address] [place] [address] Care Team Providers Care Party Plan Salesperson Name Role Phone Unavailable Primary Care Provider Unavailabl e Encounter Details Date Type Department Care Team (Latest Contact Info) Description 05/27/2020 Abstract [facility] CONVERSIONS Dental, Provider, DDS Social History [...] Description 10/09/2025 12:45 PM EST Office Visit [facility] ADULT DENTAL [address] [place] [address] Heidi Anthony documented as of this encounter Visit Diagnoses Not on filedocumented in this encounter
== END 2025-08-19 08:36 | disposition home or self-care (01) ==
LOC: HO.LAB 08:35
PROVIDERS: PCP Internal Medicine; Visit Provider Internal Medicine
DX: R55 Syncope and collapse (principal); E78.5 Hyperlipidemia, unspecified; I10 Essential (primary) hypertension
CPT/HCPCS: 36415; 80053; 80061; 93005

== ENCOUNTER → 2025-08-19 08:42 | Outpatient (BNV) | payer OTHER, SELFPAY | PROVIDERS: PCP Internal Medicine; Visit Provider Internal Medicine | DX: R55 Syncope and collapse (principal) | CPT/HCPCS: 93010 ==

== ENCOUNTER 2025-08-20 07:43 | Outpatient (REF) | payer OTHER, SELFPAY ==
--- NOTE | ~2025-08-20 | CT_ITS ---
EXAMINATION: CT HEAD WITHOUT IV CONTRAST HISTORY: R55 - Syncope and collapse. TECHNIQUE: Unenhanced helical CT of the head was performed per standard departmental protocol. Coronal and sagittal reformats of the head were also evaluated. One or more of the following techniques was used for dose reduction: Automated exposure control, adjustment of the mA and/or kV according to patient size, use of iterative reconstruction technique. DLP: 863 mGy-cm COMPARISON: There are no prior studies available for comparison. FINDINGS: BRAIN: The brain parenchyma is unremarkable. There is normal caal/white differentiation. The ventricular system is normal in size and configuration. There is no mass effect or midline shift. No intra- or extra-axial fluid collections are identified. SINUSES: The visualized paranasal sinuses are clear. The mastoid air cells and middle ear cavities are well pneumatized. ORBITS: The visualized orbits are unremarkable. BONES/SOFT TISSUES: The extracranial soft tissues are unremarkable. The calvarium is intact. No suspicious lytic or sclerotic lesions. CT/CT head/brain wo IV con IMPRESSION: Unremarkable unenhanced head CT. Electronically signed by: Luis F Negron MD 08/20/2025 08:08 AM [facility]
--- OUTSIDE RECORDS SUMMARY | 2025-08-20 07:45 | XMS_ITS | Encounter Summary ---
Author Organization [facility] [place] [facility] Address [address] [place] [address] [address] [place] [address] Care Team Providers Care Heading And Priming Tool Setter Name Role Phone Unavailable Primary Care Provider Unavailabl e Encounter Details Date Type Department Care Team (Late st Contact Info) Description 02/15/2023 Orders Only [facility] ADULT DENTAL [address] [place] [address] Betty Roche DDS [address] [place] [address] Social History Tobacco Use Types Packs/Day Years [...] Description 10/09/2025 12:45 PM EST Office Visit [facility]ULT [facility]ENT[facility] [address] [place] [address] Heidi Anthony documented as of this encounter Visit Diagnoses Not on filedocumented in this encounter
--- OUTSIDE RECORDS SUMMARY | 2025-08-20 07:45 | XMS_ITS | Encounter Summary ---
Author Organization [facility] [facility] [employer] Address [address] [place] [address] [address] [place] [address] Care Team Providers Care Purchasing Manager/Sales Name Role Phone Unavailable Primary Care Provider Unavailabl e Encounter Details Date Type Department Care Team (Latest Contact Info) Description 05/27/2020 Abstract [facility] CONVERSIONS Dental, Provider, DDS Social [...] Description 10/09/2025 12:45 PM EST Office Visit [facility] ADULT DENTAL [address] [place] [address] Heidi Anthony documented as of this encounter Visit Diagnoses Not on filedocumented in this encounter
--- OUTSIDE RECORDS SUMMARY | 2025-08-20 07:45 | XMS_ITS | Encounter Summary ---
Author Organization [email or web address] Address [address] [place] [address] [address] [place] [address] Care Team Providers Care Stations Superintendent Name Role Phone Unavailable Primary Care Provider Unavailabl e Encounter Details Date Type Department Care Team (Latest Contact Info) Description 03/05/2019 Abstract [facility] CONVERSIONS [...] [facility] [address] [place] [address] Heidi Anthony documented as of this encounter Visit Diagnoses Not on filedocumented in this encounter
--- OUTSIDE RECORDS SUMMARY | 2025-08-20 07:45 | XMS_ITS | Clinical Summary ---
Author Organization [employer] Address [address] [place] [address] [address] [place] [address] Care Team Providers Care Wet Char Conveyor Tender Name Role Phone Unavailable Primary Care Provider [...] Description 10/09/2025 12:45 PM EST Office Visit [facility] ADULT DENTAL [address] [place] [address] Heidi Anthony Health Maintenance Due Date Last [...] Maintenance Insurance [facility]AL-[facility] MEDICAID STAND ADULT
--- OUTSIDE RECORDS SUMMARY | 2025-08-20 07:45 | XMS_ITS | Encounter Summary ---
Author Organization [facility] Address [address] [place] [address] [address] [place] [address] Care Team Providers Care Transfer And Pumphouse Operator Name Role Phone Unavailable Primary Care Provider Unavailabl e Encounter Details Date Type Department Care Team (Latest Contact Info) Description 10/28/2021 Abstract [facility] CONVERSIONS Dental, Provider, DDS Social History Tobacco [...] Description 10/09/2025 12:45 PM EST Office Visit [facility] ADULT DENTAL [address] [place] [address] Heidi Anthony documented as of this encounter Visit Diagnoses Not on filedocumented in this encounter
== END 2025-08-20 07:44 | disposition home or self-care (01) ==
LOC: HO.CT 07:43
PROVIDERS: PCP Internal Medicine; Visit Provider Internal Medicine
DX: R55 Syncope and collapse (principal)
CPT/HCPCS: 70450

== ENCOUNTER → 2025-08-20 07:44 | Outpatient (BNV) | payer OTHER, SELFPAY | PROVIDERS: PCP Internal Medicine; Visit Provider Radiology Diagnostic Radiology | DX: R55 Syncope and collapse (principal) | CPT/HCPCS: 70450 ==